=== PATIENT | female | born 1940 | race Caucasian/White ===

== ENCOUNTER 2020-10-25 13:04 | Outpatient (REF) | payer MEDICARE, OTHER, SELFPAY ==
[2020-10-25 14:41] LABS: Anion Gap 12 (12-20); Blood Urea Nitrogen 14 mg/dL (9-16); Calcium 9.6 mg/dL (8.4-10.2); Carbon Dioxide 28 mmol/L (22-29); Chloride 98 mmol/L (96-108); Estimated Glomerular Filt Rate 57; Glucose Random 98 mg/dL (60-115); Potassium 4.4 mmol/L (3.3-5.1); Sodium 134 mmol/L (135-145)
== END 2020-10-25 13:05 | disposition home or self-care (01) ==
LOC: HO.HMGCLDS 13:04
PROVIDERS: PCP Internal Medicine; Visit Provider Internal Medicine
DX: I10 Essential (primary) hypertension (principal)
CPT/HCPCS: 36415; 80048

== ENCOUNTER 2021-01-04 08:14 | Outpatient (REF) | payer MEDICARE, OTHER, SELFPAY ==
[2021-01-04 11:40] LABS: Hematocrit 39.8 % (37-47); Mean Corpuscular HGB Conc 32.7 g/dl (31.0-35.0); Mean Corpuscular Volume 91.9 fL (80-98); Mean Platelet Volume 9.4 fL (9.4-12.3); Platelet Count 237 X10*3/uL (160-400); Red Blood Count 4.33 X10*6/uL (4.20-5.50); Red Cell Distribution Width 13.6 % (11.0-16.0); White Blood Count 4.2 X10*3/uL (4.8-10.8)
[2021-01-04 12:16] LABS: TSH reflex Free T4 3.71 uIU/mL (0.32-4.0)
[2021-01-04 12:24] LABS: Alanine Aminotransferase 15 U/L (0-31); Alkaline Phosphatase 74 U/L (39-117); Anion Gap 11 (12-20); Aspartate Amino Transferase 17 U/L (5-31); Bilirubin Total 0.4 mg/dL (0.0-1.0); Blood Urea Nitrogen 14 mg/dL (9-16); Calcium 9.4 mg/dL (8.4-10.2); Carbon Dioxide 28 mmol/L (22-29); Chloride 103 mmol/L (96-108); Cholesterol 194 mg/dL; Estimated Glomerular Filt Rate 57; Glucose Fasting 86 mg/dL (60-99); HDL Cholesterol 74 mg/dL; LDL Cholesterol Calculated 103 mg/dl; Potassium 4.4 mmol/L (3.3-5.1); Sodium 138 mmol/L (135-145); Total Protein 6.2 g/dL (6.5-8.0); Triglycerides 89 mg/dL
== END 2021-01-04 08:15 | disposition home or self-care (01) ==
LOC: HO.HMGCLDS 08:14
PROVIDERS: PCP Internal Medicine; Visit Provider Internal Medicine
DX: E78.5 Hyperlipidemia, unspecified (principal); I10 Essential (primary) hypertension
CPT/HCPCS: 36415; 80053; 80061; 84443; 85027

== ENCOUNTER 2021-01-25 08:41 | Outpatient (REF) | payer MEDICARE, OTHER, SELFPAY ==
--- NOTE | ~2021-01-25 | US_ITS ---
EXAMINATION: US ABDOMEN LIMITED CLINICAL INFORMATION: Unspecified abdominal pain. COMPARISON: None TECHNIQUE: Real-time imaging of the right upper quadrant abdominal viscera. FINDINGS: PANCREAS: Visualized portions unremarkable. LIVER: Unremarkable. GALLBLADDER: Normal. The gallbladder is physiologically distended without evidence of stones, sludge, polyps, wall thickening or pericholecystic fluid. COMMON BILE DUCT: Normal in caliber measuring 0.6 cm in diameter. RIGHT KIDNEY: 8.1 cm. Unremarkable. LEFT KIDNEY: 8.6 cm. Unremarkable. SPLEEN: 8.6 cm. Unremarkable. URINARY BLADDER:. FREE FLUID: None. US/US abdomen limited IMPRESSION: Unremarkable abdominal ultrasound.
== END 2021-01-25 08:42 | disposition home or self-care (01) ==
LOC: HO.US 08:41
PROVIDERS: PCP Internal Medicine; Visit Provider Internal Medicine
DX: R10.9 Unspecified abdominal pain (principal); I10 Essential (primary) hypertension; E78.5 Hyperlipidemia, unspecified
CPT/HCPCS: 76705

== ENCOUNTER 2021-05-01 13:19 | Emergency (ER) | payer MEDICARE, OTHER, SELFPAY ==
--- NOTE | ~2021-05-01 | XR_ITS ---
EXAMINATION: XR CHEST CLINICAL INFORMATION: Cough. COMPARISON: Chest 10/06/2015 TECHNIQUE: 2 views of the chest were obtained. FINDINGS: No significant abnormality is noted involving the heart, lungs, mediastinum, bony thorax or soft tissues. XR/XR chest 2V IMPRESSION: Unremarkable chest exam
[2021-05-01 14:48] VITALS: BP 198/90; PULSE 89; RESP 19; TEMP 37.2; O2SAT 97; BMI 20.2
--- NOTE | 2021-05-01 18:00 | ED_ITS ---
HPI - URI/Sore Throat General Chief Complaint: Upper Respiratory Symptoms Stated Complaint: sob, cough Time Seen by Provider: 05/01/21 17:57 Source: patient Mode of arrival: ambulatory Limitations: no limitations History of Present Illness HPI Narrative: Patient with cough since October with wheezing been seen PCP and been to urgent care multiple times taking a course of Z-Galo and prednisone comes here for similar complaints dry cough no fever feel congested and wheezing special in the morning Related Data Previous Rx's Medication Instructions Recorded simvastatin 20 mg tablet 20 mg PO BEDTIME #90 tab 11/07/20 famotidine 20 mg tablet 20 mg PO DAILY #30 tab 02/19/21 lisinopril 20 mg tablet 20 mg PO BID #180 tab 03/06/21 dicyclomine 10 mg capsule 10 mg PO TID #90 cap 03/08/21 albuterol sulfate 90 mcg/actuation 2 puff INHALATION Q4-6H PRN #6.7 g 03/20/21 aerosol inhaler cetirizine 10 mg tablet 10 mg PO DAILY 30 Days #30 tab 03/27/21 albuterol sulfate 90 mcg/actuation 2 puff INHALATION Q4-6H PRN #8.5 g 05/01/21 aerosol inhaler (ProAir HFA) amoxicillin 875 mg-potassium 1 tab PO BID #20 tab 05/01/21 clavulanate 125 mg tablet (Augmentin) codeine 10 mg-guaifenesin 100 mg/5 10 ml PO Q4-6H PRN #237 ml 05/01/21 mL oral liquid prednisone 20 mg tablet 40 mg PO DAILY #10 tab 05/01/21 Allergies Allergy/AdvReac Type Severity Reaction Status Date / Time tramadol [TRAMADOL] Allergy Severe LETHARGY/VOMITING, Verified 04/25/21 13:13 nausea, vomiting levofloxacin [From LEVAQUIN] Allergy Intermediate TENDONITIS Verified 04/25/21 13:13 metronidazole [From FLAGYL] Allergy Intermediate NAUSEA, Verified 04/25/21 13:13 metalic taste, nausea Sulfa (Sulfonamide Allergy Intermediate N/V, nausea Verified 04/25/21 13:13 Antibiotics) [SULFA (SULFONAMIDE ANTIBIOTICS)] doxycycline Allergy Unknown Unknown Verified 04/25/21 13:13 nitrofurantoin Allergy back pain Verified 04/25/21 13:13 [From Macrobid] cigarette smoke Allergy Unknown vomitng Uncoded 03/08/21 09:44 Review of Systems Review of Systems: Yes all other systems are reviewed and are negative [facility] Past Medical History Medical History Abdominal pain Arthritis Asthma Chronic cough Eosinophilia HTN (hypertension) Hyperlipidemia Surgical History H/O colonoscopy History of hysterectomy History of rectocele Inguinal hernia S/P EMILE (total abdominal hysterectomy) Family History Family History Father No problems noted. Mother Diabetes mellitus HTN (hypertension) Social History Social History Housing: House Alcohol intake: never Patient Tobacco Use Status: Never used Tobacco e-Cigarette/Vaping Use: Never Used Second Hand Smoke Exposure: Yes Advance Directives: No Advance Directives Information Provided: Yes Current occupational status: retired Physical Exam Vital Signs: Vital Signs: Last Vital Signs Temp 99 F 05/01/21 14:48 Pulse 89 05/01/21 14:48 Resp 19 05/01/21 14:48 BP 198/90 H 05/01/21 14:48 Pulse Ox 97 05/01/21 14:48 Body Mass Index 20.2 Appearance: Alert. Oriented X3. No acute distress. Eyes: No pallor or icterus ENT: Pharynx normal. Oral Mucosa moist, nares normal Neck: Normal inspection. Neck supple. CVS: Normal heart rate and rhythm. Pulses normal. Respiratory: No respiratory distress. Equal air entry bilateral, bilateral wheezing and rhonchi and no crackles Abdomen: Soft and nontender. Bowel sounds are present, no mass palpable, no CVA tenderness Skin: Skin warm and dry. Normal skin color. Normal skin turgor. Extremities: No lower extremity edema. No calf tenderness Neuro: Oriented X 3. MDM - URI/Sore Throat MDM Narrative Medical decision making narrative: Patient with chronic bronchitis with history of past chest x-ray negative will discharge patient on albuterol inhaler prednisone and Augmentin Differential Diagnosis Differential diagnosis: Likely bronchitis Medical Records Attestation: I reviewed the patient's medical records. Discharge Plan Discharge Clinical Impression: Chronic cough, Bronchitis Patient Disposition: Home, Self-Care Instructions: Chronic Bronchitis (ED) Additional Instructions: Take antibiotics and prednisone as prescribed and follow up with PCP Prescriptions: New prednisone 20 mg tablet 40 mg PO DAILY Qty: 10 RF: 0 codeine-guaifenesin 10-100 mg/5 mL liquid 10 ml PO Q4-6H PRN (Reason: cough) Qty: 237 RF: 0 albuterol sulfate [ProAir HFA] 90 mcg/actuation HFA aerosol inhaler 2 puff inhalation Q4-6H PRN (Reason: shortness of breath or wheezing) Qty: 8.5 RF: 0 amoxicillin-pot clavulanate [Augmentin] 875-125 mg tablet 1 tab PO BID Qty: 20 RF: 0 No Action simvastatin 20 mg tablet 20 mg PO BEDTIME Qty: 90 RF: 3 lisinopril 20 mg tablet 20 mg PO BID Qty: 180 RF: 3 albuterol sulfate 90 mcg/actuation HFA aerosol inhaler 2 puff inhalation Q4-6H PRN (Reason: shortness of breath or wheezing) Qty: 6.7 RF: 6 famotidine 20 mg tablet 20 mg PO DAILY Qty: 30 RF: 0 dicyclomine 10 mg capsule 10 mg PO TID Qty: 90 RF: 2 cetirizine 10 mg tablet 10 mg PO DAILY 30 Days Qty: 30 RF: 0 Interventions: ED Discharge Assessment Last Done: 05/01/21 18:42 Discharge Date/Time: 05/01/21 18:43
[2021-05-01] MEDS: Albuterol Sulfate 90 MCG 8 GM INHALER 2 PUFF INHALE (18:23)
[2021-05-01] MEDS: predniSONE 20 MG TABLET 40 MG PO (18:38)
[2021-05-01] MEDS: Amoxicillin/Potassium Clav 875 MG TABLET PO (18:38)
== END 2021-05-01 18:43 | disposition home or self-care (01) ==
PROVIDERS: Emergency Provider Internal Medicine; PCP Internal Medicine
DX: J40 Bronchitis, not specified as acute or chronic (principal)
CPT/HCPCS: 71046; 94640; 99283; 99284

== ENCOUNTER → 2021-05-08 13:23 | Outpatient (BNVA) | payer MEDICARE, OTHER, SELFPAY | PROVIDERS: PCP Internal Medicine; Visit Provider Internal Medicine | DX: J30.9 Allergic rhinitis, unspecified (principal); J45.909 Unspecified asthma, uncomplicated; R05 Cough | CPT/HCPCS: 99202 ==

== ENCOUNTER 2021-05-22 09:43 | Outpatient (REF) | payer MEDICARE, OTHER, SELFPAY ==
--- NOTE | 2021-05-22 13:24 | PFT_ITS ---
FLOWS: FEV1 111% of predicted at 2.25 L. FVC 113% of predicted at 3.06 L. FEV1 to FVC ratio of 0.74. No bronchodilator response. LUNG VOLUMES: Total lung capacity 113% of predicted at 5.90 L. Residual volume 106% of predicted at 2.61 L. Slow vital capacity 119% of predicted at 3.29 L. Expiratory reserve volume 126% of predicted at 0.71 L. Diffusion capacity is moderately decreased. IMPRESSION: No obstructive or restrictive ventilatory defect. No bronchodilator response. Isolated defect in diffusion capacity suggests underlying pulmonary parenchymal of vascular disease. Clinical correlation is advised. MD SUSANNA Ramírez/MODL / [id number]
== END 2021-05-22 09:44 | disposition home or self-care (01) ==
LOC: HO.RESP 09:43
PROVIDERS: Visit Provider Internal Medicine
DX: J45.909 Unspecified asthma, uncomplicated (principal); R05 Cough
CPT/HCPCS: 94060; 94727; 94729

== ENCOUNTER 2021-05-23 12:36 | Outpatient (REF) | payer MEDICARE, OTHER, SELFPAY ==
[2021-05-23 14:39] LABS: C Reactive Protein 0.13 mg/dL (< or = 0.50)
[2021-05-31 14:11] LABS: Transglutaminase Ab IgG <1.0 U/mL; Transglutaminase IgA <1.0 U/mL
== END 2021-05-23 12:37 | disposition home or self-care (01) ==
LOC: HO.LAB 12:36
PROVIDERS: PCP Internal Medicine; Referring Provider Internal Medicine; Visit Provider Nurse Practitioner Family
DX: K21.9 Gastro-esophageal reflux disease without esophagitis (principal); R10.84 Generalized abdominal pain; K58.1 Irritable bowel syndrome with constipation
CPT/HCPCS: 36415; 83516; 86140; 99202

== ENCOUNTER → 2021-05-30 10:25 | Outpatient (BNVA) | payer MEDICARE, OTHER, SELFPAY | PROVIDERS: PCP Internal Medicine; Visit Provider Internal Medicine | DX: J30.9 Allergic rhinitis, unspecified (principal); R05.3 Chronic cough | CPT/HCPCS: 99212 ==

== ENCOUNTER → 2021-07-16 10:32 | Outpatient (BNVA) | payer MEDICARE, OTHER, SELFPAY | PROVIDERS: PCP Internal Medicine; Referring Provider Internal Medicine; Visit Provider Nurse Practitioner Family | DX: K21.9 Gastro-esophageal reflux disease without esophagitis (principal); K59.04 Chronic idiopathic constipation; K62.3 Rectal prolapse; R10.84 Generalized abdominal pain; R14.0 Abdominal distension (gaseous); I10 Essential (primary) hypertension; E78.5 Hyperlipidemia, unspecified; Z88.6 Allergy status to analgesic agent; Z88.1 Allergy status to other antibiotic agents; Z88.2 Allergy status to sulfonamides; Z88.8 Allergy status to other drugs, medicaments and biological substances | CPT/HCPCS: 99212 ==

== ENCOUNTER → 2021-08-30 10:40 | Outpatient (BNVA) | payer MEDICARE, OTHER, SELFPAY | PROVIDERS: PCP Internal Medicine; Referring Provider Nurse Practitioner Family; Visit Provider Surgery | DX: K62.3 Rectal prolapse (principal) | CPT/HCPCS: 46600; 99202 ==

== ENCOUNTER → 2021-11-26 09:41 | Outpatient (BNVA) | payer MEDICARE, OTHER, SELFPAY | PROVIDERS: PCP Internal Medicine; Visit Provider Internal Medicine | DX: R05.3 Chronic cough (principal); J30.9 Allergic rhinitis, unspecified; J45.909 Unspecified asthma, uncomplicated | CPT/HCPCS: 99212 ==

== ENCOUNTER 2021-12-26 07:41 | Outpatient (REF) | payer MEDICARE, OTHER, SELFPAY ==
[2021-12-26 11:29] LABS: Hematocrit 39.1 % (37.0-47.0); Hemoglobin 12.9 g/dl (12.0-16.0); Mean Corpuscular Hemoglobin 30.4 pg (27.0-33.0); Mean Corpuscular Volume 92.2 fL (80.0-98.0); Mean Platelet Volume 8.9 fL (9.4-12.3); Platelet Count 302 X10*3/uL (160-400); Red Blood Count 4.24 X10*6/uL (4.20-5.50); Red Cell Distribution Width 13.6 % (11.0-16.0)
[2021-12-26 12:01] LABS: Alanine Aminotransferase 16 U/L (0-31); Alkaline Phosphatase 77 U/L (39-117); Anion Gap 11 (12-20); Aspartate Amino Transferase 20 U/L (5-31); Bilirubin Total 0.6 mg/dL (0.0-1.0); Blood Urea Nitrogen 14 mg/dL (9-16); Calcium 9.7 mg/dL (8.4-10.2); Carbon Dioxide 26 mmol/L (22-29); Chloride 104 mmol/L (96-108); Cholesterol 204 mg/dL; Estimated Glomerular Filt Rate 56; Glucose Fasting 93 mg/dL (60-99); HDL Cholesterol 79 mg/dL; LDL Cholesterol Calculated 105 mg/dl; Potassium 4.2 mmol/L (3.3-5.1); Sodium 137 mmol/L (135-145); TSH reflex Free T4 3.52 uIU/mL (0.32-4.0); Total Protein 6.5 g/dL (6.5-8.0); Triglycerides 104 mg/dL
== END 2021-12-26 07:42 | disposition home or self-care (01) ==
LOC: HO.HMGCLDS 07:41
PROVIDERS: Visit Provider Internal Medicine
DX: E78.5 Hyperlipidemia, unspecified (principal); I10 Essential (primary) hypertension
CPT/HCPCS: 36415; 80053; 80061; 84443; 85027

== ENCOUNTER → 2021-12-26 08:27 | Outpatient (RCR) | payer MEDICARE, OTHER, SELFPAY | END | disposition home or self-care (01) | LOC: HO.PTCHIC 05-29 10:51 | PROVIDERS: PCP Internal Medicine; Visit Provider Internal Medicine | DX: M25.512 Pain in left shoulder (principal) | CPT/HCPCS: 97110; 97530 ==

== ENCOUNTER 2022-05-13 16:40 | Outpatient (REF) | payer MEDICARE, OTHER, SELFPAY | END 2022-05-13 16:41 | disposition home or self-care (01) | LOC: HO.LNP 16:40 | PROVIDERS: Visit Provider Physician Assistant | DX: Z13.89 Encounter for screening for other disorder (principal) ==

== ENCOUNTER 2022-06-17 13:09 | Outpatient (REF) | payer MEDICARE, OTHER, SELFPAY ==
[2022-06-17 14:09] LABS: Alanine Aminotransferase 10 U/L (0-31); Albumin Level 4.4 g/dL (3.5-5.0); Alkaline Phosphatase 93 U/L (39-117); Aspartate Amino Transferase 18 U/L (5-31); Bilirubin Direct 0.2 mg/dL (0.0-0.5); Bilirubin Total 0.4 mg/dL (0.0-1.0)
== END 2022-06-17 13:10 | disposition home or self-care (01) ==
LOC: HO.LAB 13:09
PROVIDERS: PCP Internal Medicine; Visit Provider Nurse Practitioner Family
DX: R10.84 Generalized abdominal pain (principal); K59.04 Chronic idiopathic constipation
CPT/HCPCS: 36415; 80076; 99212

== ENCOUNTER 2022-06-20 08:28 | Outpatient (REF) | payer MEDICARE, OTHER, SELFPAY ==
--- NOTE | ~2022-06-20 | US_ITS ---
EXAMINATION: US ABDOMEN COMPLETE CLINICAL INFORMATION: Abdominal pain. COMPARISON: 01/25/2021. TECHNIQUE: Real-time imaging of the abdominal viscera. FINDINGS: PANCREAS: Normal. No abnormal mass or peripancreatic inflammatory change. ABDOMINAL AORTA: Calcified plaque is present without abdominal aortic aneurysm. INFERIOR VENA CAVA: Visualized portions are normal. LIVER: Normal. The liver is normal in size. The liver contour is normal. Parenchymal echogenicity is normal. No focal hepatic lesion. There is no intrahepatic biliary duct dilatation seen. GALLBLADDER: Normal. The gallbladder is physiologically distended without evidence of stones, sludge, polyps, wall thickening or pericholecystic fluid. COMMON BILE DUCT: Normal in caliber measuring 0.5 cm in diameter. RIGHT KIDNEY: There is mild prominence of the proximal ureter without echogenic focus being seen. No hydronephrosis. No renal calculi or focal parenchymal lesions. The kidney measures 7.9 cm in maximum dimension. LEFT KIDNEY: There is some mild prominence of the proximal ureter without calculus identified. This had a similar appearance to prior study of 01/25/2021. No hydronephrosis. No renal calculi or focal parenchymal lesions. The kidney measures 9.0 cm in maximum dimension. SPLEEN: Normal. The spleen measures 8.7 cm in maximum dimension. FREE FLUID: None. US/US abdomen complete IMPRESSION: No significant abnormality appreciated. Mild prominence of the proximal ureters without hydronephrosis or calculi identified.
== END 2022-06-20 08:29 | disposition home or self-care (01) ==
LOC: HO.US 08:28
PROVIDERS: Visit Provider Nurse Practitioner Family
DX: R10.9 Unspecified abdominal pain (principal)
CPT/HCPCS: 76700

== ENCOUNTER 2022-06-26 12:14 | Outpatient (REF) | payer MEDICARE, OTHER, SELFPAY ==
[2022-06-26 15:00] LABS: Blood Urea Nitrogen 17 mg/dL (9-16); Estimated Glomerular Filt Rate > 60
== END 2022-06-26 12:15 | disposition home or self-care (01) ==
LOC: HO.HMGCLDS 12:14
PROVIDERS: PCP Internal Medicine; Visit Provider Nurse Practitioner Family
DX: R10.11 Right upper quadrant pain (principal)
CPT/HCPCS: 36415; 82565; 84520

== ENCOUNTER 2022-07-09 13:35 | Outpatient (REF) | payer MEDICARE, OTHER, SELFPAY ==
--- NOTE | ~2022-07-09 | CT_ITS ---
EXAMINATION: CT ABDOMEN AND PELVIS WITH CONTRAST CLINICAL INFORMATION: Unspecified abdominal pain. COMPARISON: Ultrasound abdomen 06/20/2022. TECHNIQUE: Multidetector volumetric images were obtained from the superior aspect of the liver through the pubic symphysis following administration 85 mL of Omnipaque 350 intravenous contrast. Sagittal and coronal reformatted images were obtained on the technologist's workstation. Oral Contrast: No. This CT examination was performed using dose optimization techniques as appropriate, variously including the following: *Automated exposure control. *Adjustment of mA and/or kV according to patient size (this includes techniques or standardized protocols for targeted exams where dose is matched to indication/reason for exam; i.e. extremities or head). *Use of iterative reconstruction technique. DLP: 456 mGy-cm FINDINGS: LUNG BASES: There is mild atelectatic changes in the lingula and left lung base. The right lung base is clear. Heart size is normal. LIVER, GALLBLADDER, AND BILIARY TREE: The liver is normal in size, shape, and attenuation. No focal hepatic lesion or biliary ductal dilatation is present. The gallbladder is unremarkable with no evidence of radiopaque gallstones, gallbladder wall thickening, or obvious pericholecystic inflammatory changes. PANCREAS: Unremarkable. SPLEEN: Unremarkable. ADRENAL GLANDS: Unremarkable. KIDNEYS AND URETERS: The kidneys are normal in size, shape, and attenuation. No hydronephrosis, hydroureter, or calculi seen. No perinephric stranding. There is a 3 mm hypodensity in the lower pole cortex of the right kidney. BLADDER: Unremarkable. GASTROINTESTINAL TRACT: There is moderate stool and oral contrast seen in the colon without any significant distention. Oral contrast opacified. Small bowel loops are normal caliber. Appendix is not visualized. ABDOMINAL WALL: There is a small lumbar canal hernia containing fat. LYMPH NODES: Normal. VASCULAR: There is arthroscopic calcification of abdominal aorta without aneurysmal dilatation. PELVIC VISCERA: There is mild thickening of the perirectal wall and mild perirectal fat stranding. No abscess seen. There is no free air or free fluid. OSSEOUS STRUCTURES: No aggressive lytic or sclerotic process seen. Vacuum disc phenomena with degenerative disc changes are seen at L2-3, L3-L4 and L4-L5 disc levels. 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 CT/CT abdomen pelvis w IV con IMPRESSION: 1. No acute intra-abdominal process seen. 2. Moderate constipation. Mild perirectal fat stranding and perirectal wall thickening but no abscess seen. Suspect low-lying rectum and urinary bladder. 3. Small umbilical hernia containing fat. Fleischner guidelines were followed.
[2022-07-09] MEDS: iohexoL 350 MG/ML 100 ML INFUS..BTL IV (16:49)
[2022-07-09] MEDS: Barium Sulfate Oral (Berry) 450 ML ORAL.SUSP 900 ML PO (16:50)
== END 2022-07-09 13:36 | disposition home or self-care (01) ==
LOC: HO.CT 13:35
PROVIDERS: PCP Internal Medicine; Visit Provider Nurse Practitioner Family
DX: R10.9 Unspecified abdominal pain (principal)
CPT/HCPCS: 74177; Q9967

== ENCOUNTER 2022-07-15 14:21 | Outpatient (REF) | payer MEDICARE, OTHER, SELFPAY | END 2022-07-15 14:22 | disposition home or self-care (01) | LOC: HO.LAB 14:21 | PROVIDERS: Nurse Practitioner Family; PCP Internal Medicine; Visit Provider Internal Medicine | DX: K20.90 Esophagitis, unspecified without bleeding (principal) | CPT/HCPCS: 36415; 86003; 99212 ==

== ENCOUNTER → 2022-10-07 10:30 | Outpatient (BNVA) | payer MEDICARE, OTHER, SELFPAY | PROVIDERS: PCP Internal Medicine; Visit Provider Nurse Practitioner Family | DX: R10.84 Generalized abdominal pain (principal); K21.9 Gastro-esophageal reflux disease without esophagitis; K59.04 Chronic idiopathic constipation | CPT/HCPCS: 99212 ==

== ENCOUNTER → 2022-12-31 12:10 | Outpatient (BNVA) | payer MEDICARE, OTHER, SELFPAY | PROVIDERS: PCP Internal Medicine; Visit Provider Dietitian, Registered | DX: K58.9 Irritable bowel syndrome, unspecified (principal); E78.5 Hyperlipidemia, unspecified; I10 Essential (primary) hypertension; E53.8 Deficiency of other specified B group vitamins; E55.9 Vitamin D deficiency, unspecified; Z71.3 Dietary counseling and surveillance | CPT/HCPCS: 97802 ==

== ENCOUNTER 2023-01-09 08:40 | Outpatient (REF) | payer MEDICARE, OTHER, SELFPAY ==
[2023-01-09 09:35] LABS: MANUAL DIFF FLAG NO
[2023-01-09 10:33] LABS: Basophils Absolute Auto 0.1 X10*3/uL (0.0-0.2); Basophils Percent Auto 1.1 % (0-2); Eosinophils Absolute Auto 0.5 X10*3/uL (0.0-0.4); Eosinophils Percent Auto 5.6 % (0-4); Hematocrit 37.8 % (37.0-47.0); Hemoglobin 12.6 g/dl (12.0-16.0); Imm Gran Abs Auto 0.04 X10*3/uL (0.00-0.03); Imm Gran Pct Auto 0.4 % (0.0-0.4); Lymphocytes Absolute Auto 2.1 X10*3/uL (1.2-4.9); Lymphocytes Percent Auto 21.9 % (20-40); Mean Corpuscular HGB Conc 33.3 g/dl (31.0-35.0); Mean Corpuscular Hemoglobin 30.3 pg (27.0-33.0); Mean Corpuscular Volume 90.9 fL (80.0-98.0); Mean Platelet Volume 9.4 fL (9.4-12.3); Monocytes Absolute Auto 0.9 X10*3/uL (0.1-1.2); Neutrophils Absolute Auto 5.7 x10*3/uL (2.0-8.3); Platelet Count 242 X10*3/uL (160-400); Red Blood Count 4.16 X10*6/uL (4.20-5.50); Red Cell Distribution Width 13.2 % (11.0-16.0); White Blood Count 9.4 X10*3/uL (4.8-10.8)
[2023-01-09 11:16] LABS: Alanine Aminotransferase 13 U/L (0-31); Alkaline Phosphatase 97 U/L (39-117); Anion Gap 11 (12-20); Aspartate Amino Transferase 18 U/L (5-31); Bilirubin Total 0.4 mg/dL (0.0-1.0); Blood Urea Nitrogen 14 mg/dL (9-16); Calcium 9.4 mg/dL (8.4-10.2); Carbon Dioxide 28 mmol/L (22-29); Chloride 105 mmol/L (96-108); Cholesterol 186 mg/dL; Estimated Glomerular Filt Rate 57; Glucose Fasting 94 mg/dL (60-99); HDL Cholesterol 56 mg/dL; LDL Cholesterol Calculated 102 mg/dl; Potassium 4.8 mmol/L (3.3-5.1); Sodium 139 mmol/L (135-145); Total Protein 6.3 g/dL (6.5-8.0); Triglycerides 143 mg/dL
[2023-01-09 11:40] LABS: Folate 15.6 ng/mL (> or = 4.0); TSH reflex Free T4 3.27 uIU/mL (0.32-4.0); Vitamin B12 505 pg/mL (200-900); Vitamin D 25-OH Total 51.6 ng/mL (>30)
== END 2023-01-09 08:41 | disposition home or self-care (01) ==
LOC: HO.LAB 08:40
PROVIDERS: PCP Internal Medicine; Visit Provider Internal Medicine
DX: E78.5 Hyperlipidemia, unspecified (principal); I10 Essential (primary) hypertension; E55.9 Vitamin D deficiency, unspecified; E53.8 Deficiency of other specified B group vitamins; J45.909 Unspecified asthma, uncomplicated; J20.9 Acute bronchitis, unspecified; Z79.899 Other long term (current) drug therapy
CPT/HCPCS: 36415; 80053; 80061; 82306; 82607; 82746; 84443; 85025; 99212

== ENCOUNTER 2023-04-09 10:38 | Outpatient (AMB) | payer MEDICARE, OTHER, SELFPAY ==
[2023-04-09 11:10] VITALS: BP 146/80; PULSE 71; O2SAT 96; BMI 22.5
--- NOTE | 2023-04-09 11:10 | A.OFFPC_ITS ---
Vital Signs 04/09/23 11:10 04/09/23 11:53 Height 5 ft 4 in Weight 131 lb BMI 22.5 BP 146/80 H 125/75 Blood Pressure Location Lt brachial Rt brachial Position Sitting Sitting Pulse 71 Pulse Source Pulse Oximeter Pulse Oximetry (%) 96 Oxygen Delivery Method Room Air Intake Visit Reasons: Annual PE Intake Note: Pt is here today for PE. Allergies tramadol [TRAMADOL] Allergy (Severe, Verified 04/09/23 11:10) LETHARGY/VOMITING, nausea, vomiting levofloxacin [From LEVAQUIN] Allergy (Intermediate, Verified 04/09/23 11:10) TENDONITIS metronidazole [From FLAGYL] Allergy (Intermediate, Verified 04/09/23 11:10) NAUSEA, metalic taste, nausea Sulfa (Sulfonamide Antibiotics) [SULFA (SULFONAMIDE ANTIBIOTICS)] Allergy (Intermediate, Verified 04/09/23 11:10) N/V, nausea doxycycline Allergy (Unknown, Verified 04/09/23 11:10) Unknown nitrofurantoin [From Macrobid] Allergy (Verified 04/09/23 11:10) back pain cigarette smoke Allergy (Unknown, Uncoded 04/09/23 11:10) vomitng Medication List - Last Reconciled 04/09/23 by Hiwot Almeida MD albuterol sulfate 90 mcg/actuation 2 puffs inhalation Q4-6H PRN cetirizine (Zyrtec) 10 mg PO DAILY PRN docusate sodium 200 mg (2 x 100 mg) PO BEDTIME fluticasone propionate 50 mcg/actuation (Flonase Allergy Relief) 1 spray intranasal BID ketorolac 0.5% 0 drps ophthalmic (eye) lisinopril 20 mg PO BID metoprolol succinate ER 50 mg PO DAILY multivitamin (Daily Multi-Vitamin tablet) 1 tab PO DAILY polyethylene glycol 3350 (Miralax) 17 grams PO DAILY simvastatin 20 mg PO BEDTIME vitamins A,C,R-ggvr-ekozmn (PreserVision AREDS) PO wheat dextrin (Benefiber Healthy Shape) grams PO Tobacco use date assessed: 04/09/23 Fall risk assessment: 1 Fall in past year Last assessed Fall Risk: 04/09/23 Dental Screening Dental Screen Date: 04/09/23 Did you have a dental visit in the last 12 months?: No Did you have a dental problem in the last 6 months where you did not have access to dental care?: No Was dental information given to patient?: Patient declined HPI Annual PE HPI Details Pt presents for PE. [facility] Medical History (Updated 04/09/23 @ 11:59 by Hiwot Almeida MD) Abdominal pain Annual physical exam Arthritis Asthma Chronic cough Eosinophilia HTN (hypertension) Hyperlipidemia Rectal prolapse Surgical History H/O colonoscopy History of hysterectomy History of rectocele Inguinal hernia S/P EMILE (total abdominal hysterectomy) Family History Father Mental health disorder Mother Diabetes mellitus HTN (hypertension) Social History Housing: House Alcohol intake: never Patient Tobacco Use Status: Never used Tobacco e-Cigarette/Vaping Use: Never Used Second Hand Smoke Exposure: Yes Current occupational status: retired Cognitive needs: No Hearing needs: No Vision needs: Yes Questionnaire PHQ-9 Over the last 2 weeks, how often have you been bothered by any of the following problems? 1. Little interest or pleasure in doing things: not at all 2. Feeling down, depressed, or hopeless: not at all 3. Trouble falling or staying asleep, or sleeping too much: not at all 4. Feeling tired or having little energy: not at all 5. Poor appetite or overeating: not at all 6. Feeling bad about yourself - or that you are a failure or have let yourself or your family down: not at all 7. Trouble concentrating on things, such as reading the newspaper or watching television: not at all 8. Moving or speaking so slowly that other people could have noticed. Or the opposite - being so fidgety or restless that you have been moving around a lot more than usual: not at all 9. Thoughts that you would be better off or of hurting yourself in some way: not at all Total score: 0 Depression Screening Interpretation: Negative Source: Developed by Drs. Tejinder Hutson, Geena Carvajal, Josse Londono and colleagues, with an educational ana from [email or web address]. Thrive Questionnaire Date Thrive assessed: 04/09/23 I am a: Patient What is your living situation today?: I have a steady place to live Within the past 12 months, did the food you bought not last and you didn't have the money to get more?: Never true Within the past 12 months, did you worry whether your food would run out before you got money to buy more?: Never true Do you have trouble paying for medicines?: No Do you have trouble getting transportation to medical appointments?: No Do you have trouble paying your heating and electricity bill?: No Do you have trouble taking care of your child, family member or friend?: No Do you have trouble with day-to-day activities such as bathing, preparing meals, shopping, managing finances, etc.?: No Are you currently unemployed and looking for a job?: No Are you interested in more education?: No Please select the resources that you would like help with: None Currently or been in a relationship where the following occur: no concerns reported AUDIT C Alcohol Use Questionnaire (AUDIT-C) 1. How often do you have a drink containing alcohol?: Never 3. How often do you have six or more drinks on one occasion?: Never Total Score: 0 JUANCHO-7 AMB Questionnaire JUANCHO-7 Date JUANCHO - 7 assessed: 04/09/23 Feeling nervous, anxious, or on edge: 0 = Not at all Not being able to stop or control worryin = Not at all Worrying too much about different things: 0 = Not at all Trouble relaxin = Not at all Being so restless that it is hard to sit still: 0 = Not at all Becoming easily annoyed or irritable: 0 = Not at all Feeling afraid as if something awful might happen: 0 = Not at all Total JUANCHO-7 score (0-4 normal; 5-9 mild; 10-14 moderate; 15-21 severe): 0 Source: Developed by Drs. Tejinder Hutson, Geena Carvajal, Josse Londono and colleagues, with an educational ana from [email or web address]. Review of Systems Const All systems reviewed & are unremarkable except as noted in HPI and below Reports no additional complaints Eyes Reports no additional complaints ENT Reports no additional complaints Card Reports no additional complaints Resp Reports no additional complaints GI Reports no additional complaints Reports no additional complaints Physical exam (Primary Care) Vital Signs: Last Vital Signs Pulse 71 04/09/23 11:10 BP 146/80 H 04/09/23 11:10 Pulse Ox 96 04/09/23 11:10 Oxygen Delivery Method Room Air 04/09/23 11:10 BMI result Body Mass Index 22.5 Tobacco/Smoking Status: Tobacco use Status Tobacco use date assessed 04/09/23 04/09/23 11:19 Patient Tobacco Use Status Never used Tobacco 04/09/23 11:19 e-Cigarette/Vaping Use Never Used 04/09/23 11:19 PHQ-9: PHQ-9 Score PHQ-9: Total score 0 04/09/23 11:23 Depression Screening Interpretation: Negative Thrive Assessment: Date of Thrive Assessment Date Thrive assessed 04/09/23 04/09/23 11:23 Currently or been in a relationship where the following occur: no concerns reported Const General: no acute distress HENMT Head: Yes normal to inspection Ears: hearing grossly normal bilaterally General nose exam: Normal external nose present Face and sinus: Yes normal facial exam Throat: Yes posterior oropharynx normal Eyes General: appearance normal, both eyes and all related structures Neck Neck: Yes no lymphadenopathy and Yes supple Resp Effort & Inspection: normal respiratory effort Auscultation: clear to auscultation bilaterally Cardio Rhythm: regular rhythm Heart sounds: S1 normal heart sound present and S2 normal heart sound present GI Inspection: Yes normal to inspection Palpation (GI): Soft to palpation Percussion: Yes normal to percussion Auscultation: normal bowel sounds Assessment and Plan Assessment & Plan (1) Annual physical exam: Code(s): Z00.00 - Encounter for general adult medical examination without abnormal findings Plan: Well-balanced diet and regular physical activity discussed with the patient (2) Hyperlipidemia: Code(s): E78.5 - Hyperlipidemia, unspecified Plan: Continue statin and low-cholesterol diet ,follow-up in 6 months with a fasting labs before (3) HTN (hypertension): Code(s): I10 - Essential (primary) hypertension Plan: Continue current medications, patient declined adding medication to better control blood pressure (4) Chronic cough: Comment: chronic allergic rhinitis, ProAir and Flonase spray as needed and follow-up with pulmonology Code(s): R05 - Cough Plan: Uses a ProAir as needed and follow-up with Pulmonary Orders: Orders Comprehensive [place]. Panel Fast 6 Months E78.5 - Hyperlipidemia, unspecified, I10 - Essential (primary) hypertension, Z00.00 - Encounter for general adult medical examination without abnormal findings Lipid Panel 6 Months E78.5 - Hyperlipidemia, unspecified, I10 - Essential (primary) hypertension, Z00.00 - Encounter for general adult medical examination without abnormal findings TSH reflex Free T4 6 Months E78.5 - Hyperlipidemia, unspecified, I10 - Essential (primary) hypertension, Z00.00 - Encounter for general adult medical examination without abnormal findings Complete Blood Count Auto Diff 6 Months E78.5 - Hyperlipidemia, unspecified, I10 - Essential (primary) hypertension, Z00.00 - Encounter for general adult medical examination without abnormal findings Coding Level of Care Code Est Pt Prev Care >65y(19937) Diagnoses Annual physical exam Z00.00 Hyperlipidemia E78.5 HTN (hypertension) I10 Chronic cough R05
[2023-04-09 11:53] VITALS: BP 125/75
== END 2023-04-09 11:59 | disposition home or self-care (01) ==
PROVIDERS: Visit Provider Internal Medicine
DX: Z00.00 Encounter for general adult medical examination without abnormal findings (principal); E78.5 Hyperlipidemia, unspecified; I10 Essential (primary) hypertension; R05.9 Cough, unspecified
CPT/HCPCS: 99397

== ENCOUNTER 2023-06-03 11:07 | Outpatient (AMB) | payer MEDICARE, OTHER, SELFPAY ==
[2023-06-03 13:37] VITALS: BP 152/80; PULSE 68; TEMP 36.8; O2SAT 98; BMI 22.5
--- NOTE | 2023-06-03 13:37 | MHC.OFFWIV ---
Intake Vital Signs 06/03/23 13:37 Height 5 ft 4 in Weight 131 lb BMI 22.5 BP 152/80 H Blood Pressure Location Lt brachial Position Sitting Pulse 68 Pulse Source Pulse Oximeter Temp 98.3 F Temp Source Temporal Artery Scan Pulse Oximetry (%) 98 Intake Visit Reasons: EST/stomach cramps Intake Note: pt is here for c/o stomach cramps severe, questioning uti Patient Tobacco Use Status: Never used Tobacco Allergies tramadol [TRAMADOL] Allergy (Severe, Verified 06/03/23 13:37) LETHARGY/VOMITING, nausea, vomiting levofloxacin [From LEVAQUIN] Allergy (Intermediate, Verified 06/03/23 13:37) TENDONITIS metronidazole [From FLAGYL] Allergy (Intermediate, Verified 06/03/23 13:37) NAUSEA, metalic taste, nausea Sulfa (Sulfonamide Antibiotics) [SULFA (SULFONAMIDE ANTIBIOTICS)] Allergy (Intermediate, Verified 06/03/23 13:37) N/V, nausea doxycycline Allergy (Unknown, Verified 06/03/23 13:37) Unknown nitrofurantoin [From Macrobid] Allergy (Verified 06/03/23 13:37) back pain cigarette smoke Allergy (Unknown, Uncoded 04/09/23 11:10) vomitng Do you need a note to return to daycare/school/sports/work: Yes HPI HPI Comments History of Present Illness Details 82-year-old female history of IBS that presents for stomach cramping. Patient states that for the past week she has experienced cramping in her right lower abdomen. She denies any fevers or chills and diarrhea she does have a history of constipation as well for which she takes MiraLax for her stools have been suboptimal lately. She has been taking Gas-X in does get some relief the pain is not constant. She has restarted her GI provider [facility] had difficulty getting in touch with them. [facility] Medical History (Updated 04/09/23 @ 11:59 by Hiwot Almeida MD) Rectal prolapse Annual physical exam Chronic cough Asthma Abdominal pain Arthritis Eosinophilia Hyperlipidemia HTN (hypertension) Surgical History S/P EMILE (total abdominal hysterectomy) H/O colonoscopy Inguinal hernia History of hysterectomy History of rectocele Family History Father Mental health disorder Mother Diabetes mellitus HTN (hypertension) Social History Housing: House Alcohol intake: never Patient Tobacco Use Status: Never used Tobacco e-Cigarette/Vaping Use: Never Used Second Hand Smoke Exposure: Yes Current occupational status: retired Cognitive needs: No Hearing needs: No Vision needs: Yes Review of Systems Const Unobtainable due to mental status GI Reports abdominal pain and Reports bloating Physical Exam Vital Signs: Last Vital Signs Temp 98.3 F 06/03/23 13:37 Pulse 68 06/03/23 13:37 BP 152/80 H 06/03/23 13:37 Pulse Ox 98 06/03/23 13:37 BMI result Body Mass Index 22.5 Const General: healthy appearing, comfortable, no acute distress and alert Orientation/consciousness: patient oriented x3 Limitations: no limitations HEENT Head: Yes normal to inspection Ears: hearing grossly normal bilaterally Resp Effort & Inspection: normal respiratory effort and able to speak in complete sentences Cardio Rate: regular rate GI Other: Question right lower quadrant tenderness to palpation Skin General skin exam: no rashes or lesions noted Neuro General: patient oriented x3 Extrem General: Yes normal to inspection Results AMB Urinalysis, Automated UA Leukoctes 0 Reese/uL Last Edit by CHELO Lee on 06/03/23 13:53 UA Nitrite Negative Last Edit by CHELO Lee on 06/03/23 13:53 UA Urobilinogen 0.2 mg/dL Last Edit by CHELO Lee on 06/03/23 13:53 UA Protein 0 mg/dL Last Edit by CHELO Lee on 06/03/23 13:53 UA pH 6.5 Last Edit by CHELO Lee on 06/03/23 13:53 UA Blood 0 Osiel/uL Last Edit by CHELO Lee on 06/03/23 13:53 UA Specific [place] 1.010 Last Edit by CHELO Lee on 06/03/23 13:53 UA Ketone Negative Last Edit by CHELO Lee on 06/03/23 13:53 UA Bilirubin 0 mg/dL Last Edit by CHELO Lee on 06/03/23 13:53 UA Glucose 0 mg/dL Last Edit by CHELO Lee on 06/03/23 13:53 Results Reviewed Results Reviewed: Laboratory Last Values Urine pH (Auto) 6.5 06/03/23 13:51 Specific [place] (Auto) 1.010 06/03/23 13:51 Urine Protein (Auto) 0 mg/dL 06/03/23 13:51 Glucose (UA)(Auto) 0 mg/dL 06/03/23 13:51 Urine Ketones (Auto) Negative 06/03/23 13:51 Urine Blood (Auto) 0 Osiel/uL 06/03/23 13:51 Urine Nitrite (Auto) Negative 06/03/23 13:51 Urine Bilirubin (Auto) 0 mg/dL 06/03/23 13:51 Urine Urobilinogen (Auto) 0.2 mg/dL 06/03/23 13:51 Leukocyte Esterase (Auto) 0 Reese/uL 06/03/23 13:51 Assessment & Plan Assessment & Plan (1) Abdominal pain: Code(s): R10.9 - Unspecified abdominal pain Qualifiers: Abdominal location: generalized Qualified Code(s): R10.84 - Generalized abdominal pain Plan: VSS. Exam patient is alert oriented no acute distress exam notable for question number right lower quadrant tenderness to palpation. Exam otherwise unremarkable note above. Given patient presentation of consideration is IBS flare verses diverticulitis versus other acute pathology. Low suspicion for diverticulitis given no fever no left quadrant tenderness to palpation no diarrhea or blood in the stool. The suspicion for appendicitis given patient has had appendectomy. Increased prescribed as fair. Discussed his findings with patient would recommend patient go to the emergency department for CT scan patient declined at this time. Lab patient trial increasing fiber as well as adding Senokot to bowel regiment and a probiotic imaging active GI provider Discharge instructions, follow up and treatment are discussed with patient in my usual fashion. Alternatives in treatment are also discussed. The patient will return for worsening symptoms or as needed. Advised that any labs/imaging ordered will be followed up on and contact made if further treatment needed. Counseled that patient's condition may require further evaluation and/or treatment. Symptoms of concern for worsening disorder discussed in detail in my customary manner. Patient does verbalize understanding of the plan, there are no apparent barriers to communication. The patient is given the opportunity to ask questions and have them answered to his/her satisfaction Orders: Orders AMB Urinalysis Automated Today Z13.9 - Encounter for screening, unspecified Coding Level of Care Code Est Pt Level 3 (51547) Diagnoses Generalized abdominal pain R10.84 Abdominal location: generalized
== END 2023-06-03 14:32 | disposition home or self-care (01) ==
PROVIDERS: PCP Internal Medicine; Visit Provider Physician Assistant
DX: R10.84 Generalized abdominal pain (principal)
CPT/HCPCS: 81003; 99213

== ENCOUNTER 2023-06-16 12:39 | Outpatient (REF) | payer MEDICARE, OTHER, SELFPAY ==
[2023-06-16 14:48] LABS: Alanine Aminotransferase 16 U/L (0-31); Albumin Level 4.2 g/dL (3.5-5.0); Alkaline Phosphatase 80 U/L (39-117); Aspartate Amino Transferase 18 U/L (5-31); Bilirubin Direct 0.1 mg/dL (0.0-0.5); Bilirubin Total 0.3 mg/dL (0.0-1.0); Lipase 33 U/L (8-78); Total Protein 6.7 g/dL (6.5-8.0)
[2023-06-27 03:38] LABS: Pancreatic Elastase-1 >500 mcg/g
== END 2023-06-16 12:40 | disposition home or self-care (01) ==
LOC: HO.LAB 12:39
PROVIDERS: PCP Internal Medicine; Visit Provider Nurse Practitioner Family
DX: R10.9 Unspecified abdominal pain (principal); K21.9 Gastro-esophageal reflux disease without esophagitis; K58.1 Irritable bowel syndrome with constipation; R10.84 Generalized abdominal pain; K59.01 Slow transit constipation; R14.0 Abdominal distension (gaseous)
CPT/HCPCS: 36415; 80076; 82656; 83690; 87338; 99212

== ENCOUNTER 2023-06-16 12:39 | Outpatient (AMB) | payer MEDICARE, OTHER, SELFPAY ==
[2023-06-16 12:54] VITALS: BP 150/87; PULSE 71; BMI 22.1
--- NOTE | 2023-06-16 12:54 | A.OFFVIS_ITS ---
Intake Vital Signs 06/16/23 12:54 Height 5 ft 4 in Weight 128 lb 11.999 oz BMI 22.1 BP 150/87 H Blood Pressure Location Rt brachial Position Sitting Pulse 71 Intake Visit Reasons: Follow up Abdominal pain Intake Note: Patient presents to in office vsiit today in follow up of abdominal pain. CC: Patient reports feeling worst than before. She c/o abdominal pain, indigestion,nausea, bloating, and constipation. She states bloating and pain seems worst after meals. She states Miralax was working before but is no longer working. 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 Accompanied by: Self / Same As Patient Allergies tramadol [TRAMADOL] Allergy (Severe, Verified 06/16/23 12:57) LETHARGY/VOMITING, nausea, vomiting levofloxacin [From LEVAQUIN] Allergy (Intermediate, Verified 06/16/23 12:57) TENDONITIS metronidazole [From FLAGYL] Allergy (Intermediate, Verified 06/16/23 12:57) NAUSEA, metalic taste, nausea Sulfa (Sulfonamide Antibiotics) [SULFA (SULFONAMIDE ANTIBIOTICS)] Allergy (Intermediate, Verified 06/16/23 12:57) N/V, nausea doxycycline Allergy (Unknown, Verified 06/16/23 12:57) Unknown nitrofurantoin [From Macrobid] Allergy (Verified 06/16/23 12:57) back pain cigarette smoke Allergy (Unknown, Uncoded 04/09/23 11:10) vomitng HPI Follow up Abdominal pain HPI Details LAST VISIT Abdominal pain Postprandial abdominal bloating and occasionally abdominal discomfort. Patient states that the pain is random sometimes in the left upper sometimes and left lower quadrant. Possibility this is related to the gas trapping or her even being slightly constipated. Patient states that this happened after she eats certain food. Again discussed with patient all FODMAP diet and trying to eliminate her bowels better. Long discussion with patient about different diet. Encouraged her to stick to low FODMAP list. Acid reflux Discussed with patient avoiding dietary triggers and late night snacking. Staying upright for minimal 3 hours after meals discussed with patient. Chronic idiopathic constipation Continue taking your labs in the morning. Patient can also take stool softener. Patient was also encouraged to increase fluid intake and activity to promote better bowel motility. Patient was encouraged to eat small portion and more often. I will see her in 4 months, sooner on as needed basis. Patient is agreeable to this plan and verbalizes understanding of instructions. She was given the opportunity to ask questions and all questions answered. TODAY'S VISIT Patient is here today for follow-up. Patient requested to be seen sooner due to increase in her symptoms. Patient reports that she finds MiraLax no longer helpful and she is constipated. Patient is not taking Colace. Patient was seen at urgent care few weeks ago for abdominal discomfort. Patient denies melena, hematochezia, unintentional weight loss or ribbon like stools. Patient reports postprandial abdominal bloating and cramping. Patient reports that her pain is on the right lower quadrant and sometimes is in the middle of her abdomen. Patient reports that she tried eating gluten free diet, however states that her does not like gluten free pasta or bread. Patient reports that she had chicken noodle soup from [employer] and had abdominal cramping right after. Patient reports occasional dyspepsia without dysphagia or odynophagia. [facility] Medical History Rectal prolapse Annual physical exam Chronic cough Asthma Abdominal pain Arthritis Eosinophilia Hyperlipidemia HTN (hypertension) Surgical History S/P EMILE (total abdominal hysterectomy) H/O colonoscopy Inguinal hernia History of hysterectomy History of rectocele Family History Father Mental health disorder Mother Diabetes mellitus HTN (hypertension) Social History Housing: House Alcohol intake: never Patient Tobacco Use Status: Never used Tobacco e-Cigarette/Vaping Use: Never Used Second Hand Smoke Exposure: Yes Current occupational status: retired Cognitive needs: No Hearing needs: No Vision needs: Yes Review of Systems Const Denies weight gain and Denies weight loss ENT Reports no additional complaints, Denies dysphagia and Denies odynophagia Card Reports no additional complaints Resp Reports no additional complaints GI Reports abdominal pain, Denies belching, Denies melena, Reports bloating, Denies change in bowel habits, Reports constipation, Denies dysphagia, Denies excessive flatus, Reports dyspepsia, Reports heartburn, Denies diarrhea, Denies loose stools, Denies nausea, Denies odynophagia and Denies vomiting Reports no additional complaints Musc Reports no additional complaints Neuro Reports no additional complaints Psych Reports no additional complaints Endo Reports no additional complaints Physical Exam Vital Signs: Last Vital Signs Pulse 71 06/16/23 12:54 BP 150/87 H 06/16/23 12:54 BMI result Body Mass Index 22.1 Const General: healthy appearing, no acute distress and well developed Nutritional Appearance: well nourished Orientation/consciousness: patient oriented x3 HEENT Head: Yes normal to inspection, Yes normocephalic and Yes atraumatic Face and sinus: Yes normal facial exam Mouth: Normal oral and palatal mucosa present Throat: Yes posterior oropharynx normal, Yes tonsils normal and Yes uvula midline Eyes General: appearance normal, both eyes and all related structures Neck Neck: Yes normal visual inspection, Yes full ROM and Yes trachea midline Thyroid: Thyroid normal Resp Effort & Inspection: normal respiratory effort, able to speak in complete sentences, no tracheal deviation and symmetric chest movement Auscultation: clear to auscultation bilaterally Cardio Rate: regular rate Heart sounds: S1 normal heart sound present and S2 normal heart sound present GI Inspection: Yes normal to inspection and No distended Palpation (GI): Soft to palpation, not firm, nontender and No hepatosplenomegaly present Auscultation: normal bowel sounds General: Yes no CVA tenderness Back/Spine/Pelvis Back: no CVA tenderness Skin General skin exam: elasticity normal, turgor normal and dry skin Neuro General: patient oriented x3 Psych Appearance: grossly normal Mental Status: mental status grossly normal Affect: normal affect Assessment & Plan Assessment & Plan (1) IBS (irritable bowel syndrome): Code(s): K58.9 - Irritable bowel syndrome without diarrhea Qualifiers: Irritable bowel syndrome type: with constipation Qualified Code(s): K58.1 - Irritable bowel syndrome with constipation (2) Abdominal pain: Code(s): R10.9 - Unspecified abdominal pain Qualifiers: Abdominal location: generalized Qualified Code(s): R10.84 - Generalized abdominal pain (3) Constipation: Code(s): K59.00 - Constipation, unspecified Qualifiers: Constipation type: slow transit constipation Qualified Code(s): K59.01 - Slow transit constipation (4) Postprandial abdominal bloating: Code(s): R14.0 - Abdominal distension (gaseous) Plan Patient will continue taking MiraLax every morning and she will start taking Colace in the evening. Patient was also encouraged to increase fluid intake and activity to promote better bowel motility. Will check her lipase, rule out pancreatic insufficiency, H pylori, and check liver panel. Most likely her symptoms are related to IBS C type. Patient will try to avoid dietary triggers. She can take probiotic if her symptoms will not get worse. Patient was encouraged to avoid lactose. Patient will start taking pantoprazole every morning half an hour before breakfast. I will see patient in 6 weeks, sooner on as needed basis. Patient would like to hold off on doing the colonoscopy or upper endoscopy at this time. Patient is agreeable to this plan and verbalizes understanding of instructions. She was given the opportunity to ask questions and all questions answered. Thank you for allowing me to participate in her care Orders: Orders Lipase Today R10.9 - Unspecified abdominal pain H pylori Ag Stool Today K21.9 - Gastro-esophageal reflux disease without esophagitis Pancreatic Elastase-1 Today R10.9 - Unspecified abdominal pain Liver Panel Today R10.9 - Unspecified abdominal pain Medications: New pantoprazole 20 mg PO DAILY 90 tabs 1RF Coding Level of Care Code Est Pt Level 4 (12852) Diagnoses Irritable bowel syndrome with constipation K58.1 Irritable bowel syndrome type: with constipation Generalized abdominal pain R10.84 Abdominal location: generalized Slow transit constipation K59.01 Constipation type: slow transit constipation Postprandial abdominal bloating R14.0 Time Spent (min) 35 Comment 20 minutes spent with patient and additional 15 minutes spent reviewing her records
== END 2023-06-16 13:39 | disposition home or self-care (01) ==
PROVIDERS: PCP Internal Medicine; Visit Provider Nurse Practitioner Family
DX: K58.1 Irritable bowel syndrome with constipation (principal); R10.84 Generalized abdominal pain; K59.01 Slow transit constipation; R14.0 Abdominal distension (gaseous)
CPT/HCPCS: 99214

== ENCOUNTER 2023-07-28 11:57 | Outpatient (AMB) | payer MEDICARE, OTHER, SELFPAY ==
[2023-07-28 12:01] VITALS: BP 173/80; PULSE 69; BMI 22.3
--- NOTE | 2023-07-28 12:01 | A.OFFVIS_ITS ---
Intake Vital Signs 07/28/23 12:01 Height 5 ft 4 in Weight 130 lb 1.164 oz BMI 22.3 BP 173/80 H Blood Pressure Location Lt brachial Position Sitting Pulse 69 Intake Visit Reasons: 6 week follow up Intake Note: Patient presents to in office visit today in follow up of labs. CC: Patient reports she took the Pantoprazole but her arm started throbbing. She stopped the medication and the throbbing on her arm resolved. She bought OTC Ome prazole and took it for 14 days. She states she is now having a lot of mucus but she is having a cold. 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 Accompanied by: Self / Same As Patient Allergies tramadol [TRAMADOL] Allergy (Severe, Verified 07/28/23 15:36) LETHARGY/VOMITING, nausea, vomiting levofloxacin [From LEVAQUIN] Allergy (Intermediate, Verified 07/28/23 15:36) TENDONITIS metronidazole [From FLAGYL] Allergy (Intermediate, Verified 07/28/23 15:36) NAUSEA, metalic taste, nausea Sulfa (Sulfonamide Antibiotics) [SULFA (SULFONAMIDE ANTIBIOTICS)] Allergy (Intermediate, Verified 07/28/23 15:36) N/V, nausea doxycycline Allergy (Unknown, Verified 07/28/23 15:36) Unknown nitrofurantoin [From Macrobid] Allergy (Verified 07/28/23 15:36) back pain pantoprazole Adverse Reaction (Severe, Verified 07/28/23 15:36) arm throbbing cigarette smoke Allergy (Unknown, Uncoded 07/28/23 15:36) vomitng HPI 6 week follow up HPI Details LAST VISIT: IBS (irritable bowel syndrome) Abdominal pain Constipation Postprandial abdominal bloating Plan Patient will continue taking MiraLax every morning and she will start taking Colace in the evening. Patient was also encouraged to increase fluid intake and activity to promote better bowel motility. Will check her lipase, rule out pancreatic insufficiency, H pylori, and check liver panel. Most likely her symptoms are related to IBS C type. Patient will try to avoid dietary triggers. She can take probiotic if her symptoms will not get worse. Patient was encouraged to avoid lactose. Patient will start taking pantoprazole every morning half an hour before breakfast. I will see patient in 6 weeks, sooner on as needed basis. Patient would like to hold off on doing the colonoscopy or upper endoscopy at this time. Patient is agreeable to this plan and verbalizes understanding of instructions. She was given the opportunity to ask questions and all questions answered. ? Thank you for allowing me to participate in her care Orders Orders Lipase Today R10.9 H pylori Ag Stool Today K21.9 Pancreatic Elastase-1 Today R10.9 Liver Panel Today R10.9 Medications New pantoprazole 20 mg PO DAILY 90 tabs 1RF TODAY'S VISIT: Patient is here today for follow-up. Patient reports that when she started taking pantoprazole she felt pain in her right arm and she stopped taking a curette patient back [id number] omeprazole and took it for 14 days. Currently patient has colds symptoms that she has been experiencing in the last month or so. Patient reports that she always gets sick this time of the year. Has appointment with her manager relationship this afternoon. Patient reports occasional dyspepsia, epigastric pain abdominal bloating with certain food. Patient reports that now that she has been sick with cold she has been eating less and reports to have less epigastric pain or dyspepsia. Patient also reports that she has been eating lot of ice cream and also reports epigastric pain afterwards. We did discuss low FODMAP diet last visit and list of recommendations was provided and ice cream was not recommended except for lactose free. Patient denies any other GI concerning symptoms. Reports that she has been moving her bowels daily. Denies melena, hematochezia, unintentional weight loss or ribbon like stools. [facility] Medical History (Updated 07/28/23 @ 15:46 by Jo Ann Looney MD) Bronchitis Rectal prolapse Annual physical exam Chronic cough Asthma Abdominal pain Arthritis Eosinophilia Hyperlipidemia HTN (hypertension) Surgical History S/P EMILE (total abdominal hysterectomy) H/O colonoscopy Inguinal hernia History of hysterectomy History of rectocele Family History Father Mental health disorder Mother Diabetes mellitus HTN (hypertension) Social History Housing: House Alcohol intake: never Patient Tobacco Use Status: Never used Tobacco e-Cigarette/Vaping Use: Never Used Second Hand Smoke Exposure: Yes Current occupational status: retired Cognitive needs: No Hearing needs: No Vision needs: Yes Review of Systems Const Denies weight gain and Denies weight loss ENT Reports no additional complaints, Denies dysphagia and Denies odynophagia Card Reports no additional complaints Resp Reports no additional complaints GI Denies abdominal pain, Denies belching, Denies melena, Reports bloating, Denies change in bowel habits, Reports GI cramping, Denies dysphagia, Denies excessive flatus, Reports dyspepsia (Occasional), Denies heartburn, Denies diarrhea, Denies loose stools, Denies nausea, Denies odynophagia and Denies vomiting Reports no additional complaints Musc Reports no additional complaints Neuro Reports no additional complaints Psych Reports no additional complaints Endo Reports no additional complaints Physical Exam Vital Signs: Last Vital Signs Pulse 69 07/28/23 12:01 BP 173/80 H 07/28/23 12:01 BMI result Body Mass Index 22.3 Const General: healthy appearing, no acute distress and well developed Nutritional Appearance: well nourished Orientation/consciousness: patient oriented x3 HEENT Head: Yes normal to inspection, Yes normocephalic and Yes atraumatic Face and sinus: Yes normal facial exam Mouth: Normal oral and palatal mucosa present Throat: Yes posterior oropharynx normal, Yes tonsils normal and Yes uvula midli ne Eyes General: appearance normal, both eyes and all related structures Neck Neck: Yes normal visual inspection, Yes full ROM and Yes trachea midline Thyroid: Thyroid normal Resp Effort & Inspection: normal respiratory effort, able to speak in complete sentences, no tracheal deviation and symmetric chest movement Auscultation: clear to auscultation bilaterally Cardio Rate: regular rate GI Inspection: Yes normal to inspection and No distended Palpation (GI): Soft to palpation, not firm, nontender and No hepatosplenomegaly present Auscultation: normal bowel sounds General: Yes no CVA tenderness Back/Spine/Pelvis Back: no CVA tenderness Skin General skin exam: elasticity normal, turgor normal and dry skin Neuro General: patient oriented x3 Psych Appearance: grossly normal Mental Status: mental status grossly normal Assessment & Plan Assessment & Plan (1) IBS (irritable bowel syndrome): Code(s): K58.9 - Irritable bowel syndrome without diarrhea Qualifiers: Irritable bowel syndrome type: with constipation Qualified Code(s): K58.1 - Irritable bowel syndrome with constipation (2) Abdominal pain: Code(s): R10.9 - Unspecified abdominal pain Qualifiers: Abdominal location: generalized Qualified Code(s): R10.84 - Generalized abdominal pain (3) Acid reflux: Code(s): K21.9 - Gastro-esophageal reflux disease without esophagitis Qualifiers: Esophagitis presence: esophagitis presence not specified Qualified Code(s): K21.9 - Gastro-esophageal reflux disease without esophagitis Plan Patient will continue low FODMAP diet. Lactose free ice cream recommended. Patient will also eat smaller meals and more often. May use [id number] famotidine as needed. Patient was also encouraged to avoid other dietary triggers and late night snacking. Staying upright for minimum 3 hours after meals discussed with patient. Patient will return to the office in 3 months, sooner on as needed basis. Patient is agreeable to this plan and verbalizes understanding of instructions. She was given the opportunity to ask questions and all questions answered. Thank you for allowing me to participate in her care Coding Level of Care Code Est Pt Level 3 (23827) Diagnoses Irritable bowel syndrome with constipation K58.1 Irritable bowel syndrome type: with constipation Generalized abdominal pain R10.84 Abdominal location: generalized Gastroesophageal reflux disease, unspecified whether esophagitis present K21.9 Esophagitis presence: esophagitis presence not specified Time Spent (min) 25 Comment 15 minutes spent with patient and additional 10 minutes spent reviewing her records
== END 2023-07-28 13:05 | disposition home or self-care (01) ==
PROVIDERS: PCP Internal Medicine; Visit Provider Nurse Practitioner Family
DX: K58.1 Irritable bowel syndrome with constipation (principal); R10.84 Generalized abdominal pain; K21.9 Gastro-esophageal reflux disease without esophagitis
CPT/HCPCS: 99213

== ENCOUNTER → 2023-07-28 11:57 | Outpatient (BNVA) | payer MEDICARE, OTHER, SELFPAY | PROVIDERS: PCP Internal Medicine; Visit Provider Nurse Practitioner Family | DX: J45.909 Unspecified asthma, uncomplicated (principal); J40 Bronchitis, not specified as acute or chronic; R05.3 Chronic cough; K58.1 Irritable bowel syndrome with constipation; K21.9 Gastro-esophageal reflux disease without esophagitis; R10.84 Generalized abdominal pain | CPT/HCPCS: 99212 ==

== ENCOUNTER 2023-07-28 14:37 | Outpatient (AMB) | payer MEDICARE, OTHER, SELFPAY ==
[2023-07-28 14:55] VITALS: BP 126/78; PULSE 92; O2SAT 96; BMI 22.5
--- NOTE | 2023-07-28 14:55 | A.OFFVIS_ITS ---
Intake Vital Signs 07/28/23 14:55 Height 5 ft 4 in Weight 131 lb BMI 22.5 BP 126/78 Blood Pressure Location Lt brachial Position Sitting Pulse 92 Pulse Source Pulse Oximeter Pulse Oximetry (%) 96 Oxygen Delivery Method Room Air Intake Visit Reasons: persistent cough Intake Note: pt is here for same day sick visit, has a cough, dripping nose, sore throat for about a month Glass Setter Required: No Allergies tramadol [TRAMADOL] Allergy (Severe, Verified 07/28/23 15:36) LETHARGY/VOMITING, nausea, vomiting levofloxacin [From LEVAQUIN] Allergy (Intermediate, Verified 07/28/23 15:36) TENDONITIS metronidazole [From FLAGYL] Allergy (Intermediate, Verified 07/28/23 15:36) NAUSEA, metalic taste, nausea Sulfa (Sulfonamide Antibiotics) [SULFA (SULFONAMIDE ANTIBIOTICS)] Allergy (Intermediate, Verified 07/28/23 15:36) N/V, nausea doxycycline Allergy (Unknown, Verified 07/28/23 15:36) Unknown nitrofurantoin [From Macrobid] Allergy (Verified 07/28/23 15:36) back pain pantoprazole Adverse Reaction (Severe, Verified 07/28/23 15:36) arm throbbing cigarette smoke Allergy (Unknown, Uncoded 07/28/23 15:36) vomitng Medication List - Last Reconciled 07/28/23 by Jo Ann Looney MD albuterol sulfate 90 mcg/actuation 2 puffs inhalation Q4-6H PRN cetirizine (Zyrtec) 10 mg PO DAILY PRN docusate sodium 200 mg (2 x 100 mg) PO BEDTIME fluticasone propionate 50 mcg/actuation (Flonase Allergy Relief) 1 spray intranasal BID PRN ketorolac 0.5% 0 drps ophthalmic (eye) lisinopril 20 mg PO BID metoprolol succinate ER 50 mg PO DAILY multivitamin (Daily Multi-Vitamin tablet) 1 tab PO DAILY polyethylene glycol 3350 (Miralax) 17 grams PO DAILY PRN simvastatin 20 mg PO BEDTIME vitamins A,C,Q-vbuy-ewxjot (PreserVision AREDS) PO BID Do you need a note to return to daycare/school/sports/work: No HPI persistent cough HPI Details THIS 82 YEARS OLD FEMALE IS KNOWN TO HAVE CHRONIC ALLERGIC RHINITIS WITH POSTNASAL DRIP. MOST OF THE TIME IT IS WELL CONTROLLED WITH USE OF FLONASE AND ZYRTEC. ABOUT ONCE OR TWICE A YEAR SHE GETS ACUTE INFECTION, RESULTING IN SORE THROAT WITH ONGOING COUGH, TIGHT FEELING IN HER CHEST, AND SOME WHEEZING. THIS TIME IT HAS GONE ON FOR 4 WEEKS, AT A LOW-GRADE LEVEL. HOWEVER LAST WEEK WHEN SHE WAS SHOPPING IN THE MALL AFTER THAT SHE CAME HOME WITH INCREASED SYMPTOMS, SHE FEELS WARM BUT HAS NOT CHECKED HER TEMPERATURE. COUGH IS MOSTLY DRY BUT IT MAKES HER SHORT OF BREATH. [facility] Medical History (Updated 07/28/23 @ 15:46 by Jo Ann Looney MD) Bronchitis Rectal prolapse Annual physical exam Chronic cough Asthma Abdominal pain Arthritis Eosinophilia Hyperlipidemia HTN (hypertension) Surgical History S/P EMILE (total abdominal hysterectomy) H/O colonoscopy Inguinal hernia History of hysterectomy History of rectocele Family History Father Mental health disorder Mother Diabetes mellitus HTN (hypertension) Social History Housing: House Alcohol intake: never Patient Tobacco Use Status: Never used Tobacco e-Cigarette/Vaping Use: Never Used Second Hand Smoke Exposure: Yes Current occupational status: retired Cognitive needs: No Hearing needs: No Vision needs: Yes Review of Systems Const All systems reviewed & are unremarkable except as noted in HPI and below Eyes Reports no additional complaints ENT Reports nasal congestion (Mild off and on) and Reports nasal discharge Card Denies chest pain, Denies irregular heart rhythm and Denies leg edema Resp Reports as per HPI GI Reports GI cramping, Reports dyspepsia and Reports other (GI symptoms mostly related to foods, currently better on low gluten diet) Reports no additional complaints Musc Reports no additional complaints Skin/Breast Reports system reviewed and no additional complaints, except as documented Neuro Reports no additional complaints Psych Reports no additional complaints Physical Exam Vital Signs: Last Vital Signs Pulse 92 07/28/23 14:55 BP 126/78 07/28/23 14:55 Pulse Ox 96 07/28/23 14:55 Oxygen Delivery Method Room Air 07/28/23 14:55 BMI result Body Mass Index 22.5 Const General: healthy appearing, comfortable, no acute distress, alert and awake Orientation/consciousness: patient oriented x3 HEENT Head: Yes normal to inspection General nose exam: No nasal polyps present, abnormal septum (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, there is superficial excoriation over the septum.), No nasal discharge present and Other nasal findings present (SHE DOES HAVE MILD CHRONIC NASAL CONGESTION) Face and sinus: Yes sinuses nontender Mouth: oropharynx abnormals (THERE IS ERYTHEMA AND MILD HYPERTROPHY OF THE PHARYNGEAL MUCOSA) Throat: Yes posterior oropharynx normal Eyes General: appearance normal, both eyes and all related structures Neck Neck: Yes normal visual inspection, Yes no lymphadenopathy, Yes trachea midline and Yes no JVD Thyroid: Thyroid normal Chest Chest palpation & inspection: normal inspection of the chest, normal palpation of entire chest wall and no tenderness Resp Other: Percussion note is resonant, breath sounds equal on both sides. She does have a few inspiratory wheezes over the lower lobes area. Cardio Palpation: normal PMI Rate: regular rate Rhythm: regular rhythm Heart sounds: no gallops and no murmurs GI Palpation (GI): Soft to palpation, nontender, No hepatosplenomegaly present and no masses Auscultation: normal bowel sounds Back/Spine/Pelvis Thoracic/Lumbar Spine: thoracic and lumbar spine normal to inspection Skin General skin exam: no rashes or lesions noted Neuro General: patient oriented x3 and no focal motor deficits Cranial nerves: Yes CN's II-XII intact bilaterally Extrem General: Yes normal to inspection, Yes no clubbing, cyanosis or edema and Yes no calf tenderness Psych Appearance: grossly normal and well kempt Speech and movement: Normal speech and movement present Assessment & Plan Assessment & Plan (1) Asthma: Comment: SHE HAS MILD INTERMITTENT BRONCHIAL ASTHMA. AT PRESENT SHE HAS AN ACUTE EXACERBATION DUE TO NONSPECIFIC RESPIRATORY INFECTION. ADVISED TO USE PROAIR 1 OR 2 PUFFS ONLY P.R.N. IF SHE HAS WHEEZING. Code(s): J45.909 - Unspecified asthma, uncomplicated Plan: FOR ACUTE EXACERBATION SHE IS PRESCRIBED, PREDNISONE 20 MG A DAY FOR 1 WEEK. Z-ERNESTINE # 1 COURSE ADVISED TO USE PROAIR 2 PUFFS Q 4-6 HOURS P.R.N.. REPORT IN 1-2 WEEKS IF NOT FULLY IMPROVED. (2) Allergic rhinitis: Comment: SHE HAS CHRONIC ALLERGIC RHINITIS., WITH SEASONAL FLARE UPS. Code(s): J30.9 - Allergic rhinitis, unspecified Plan: FLONASE 2 SPRAY EACH NOSTRIL DAILY ZYRTEC 10 MG HALF FOR 1 TABLET ONCE A DAY P.R.N. (3) Chronic cough: Comment: chronic allergic rhinitis, ProAir and Flonase spray as needed Code(s): R05 - Cough Plan: ABOVE (4) Bronchitis: Comment: AT PRESENT SHE HAS MILD, NONSPECIFIC TRACHEOBRONCHITIS. Code(s): J40 - Bronchitis, not specified as acute or chronic Plan: TX UNDER ASTHMA Medications: New prednisone 10 mg PO BID 10 tabs 0RF ASTHMA 5 days MDD ASTHMA azithromycin For 250 mg dose pack: take 500 mg today (day 1), then 250 mg for 4 days (days 2-5) PO 6 tabs 0RF Refilled albuterol sulfate 90 mcg/actuation 2 puffs inhalation Q4-6H PRN 8.5 ea 2RF for wheezing J20.9 - Acute bronchitis, unspecified, J45.909 - Unspecified asthma, uncomplicated Coding Level of Care Code Est Pt Level 3 (12026) Diagnoses Asthma J45.909 Allergic rhinitis J30.9 Chronic cough R05 Bronchitis J40
== END 2023-07-28 15:54 | disposition home or self-care (01) ==
PROVIDERS: PCP Internal Medicine; Visit Provider Internal Medicine
DX: J45.909 Unspecified asthma, uncomplicated (principal); J30.9 Allergic rhinitis, unspecified; R05.9 Cough, unspecified
CPT/HCPCS: 99213

== ENCOUNTER 2023-10-06 15:23 | Outpatient (AMB) | payer MEDICARE, OTHER, SELFPAY ==
[2023-10-06 15:26] VITALS: BP 140/82; PULSE 83; O2SAT 96; BMI 22.7
--- NOTE | 2023-10-06 15:26 | MHC.OFFVIS ---
Intake Vital Signs 10/06/23 15:26 Height 5 ft 4 in Weight 132 lb 4.438 oz BMI 22.7 BP 140/82 H Blood Pressure Location Lt brachial Position Sitting Pulse 83 Pulse Source Pulse Oximeter Pulse Oximetry (%) 96 Oxygen Delivery Method Room Air Intake Visit Reasons: persistent productive cough Intake Note: pt is here for sick visit, she has a lot of phelgm, thick not much production. Also, back pain seems to be little worse. started with sore throat, also she feels bloated. Allergies tramadol [TRAMADOL] Allergy (Severe, Verified 10/06/23 16:32) LETHARGY/VOMITING, nausea, vomiting levofloxacin [From LEVAQUIN] Allergy (Intermediate, Verified 10/06/23 16:32) TENDONITIS metronidazole [From FLAGYL] Allergy (Intermediate, Verified 10/06/23 16:32) NAUSEA, metalic taste, nausea Sulfa (Sulfonamide Antibiotics) [SULFA (SULFONAMIDE ANTIBIOTICS)] Allergy (Intermediate, Verified 10/06/23 16:32) N/V, nausea doxycycline Allergy (Unknown, Verified 10/06/23 16:32) Unknown nitrofurantoin [From Macrobid] Allergy (Verified 10/06/23 16:32) back pain pantoprazole Adverse Reaction (Severe, Verified 10/06/23 16:32) arm throbbing cigarette smoke Allergy (Unknown, Uncoded 10/06/23 16:32) vomitng Medication List - Last Reconciled 10/06/23 by Jo Ann Looney MD albuterol sulfate 90 mcg/actuation 2 puffs inhalation Q4-6H PRN cetirizine (Zyrtec) 10 mg PO DAILY PRN docusate sodium 200 mg (2 x 100 mg) PO BEDTIME fluticasone propionate 50 mcg/actuation (Flonase Allergy Relief) 1 spray intranasal BID PRN lisinopril 20 mg PO BID metoprolol succinate ER 50 mg PO DAILY multivitamin (Daily Multi-Vitamin tablet) 1 tab PO DAILY polyethylene glycol 3350 (Miralax) 17 grams PO DAILY PRN simvastatin 20 mg PO BEDTIME vitamins A,C,F-jimx-rfpyrt (PreserVision AREDS) PO BID Do you need a note to return to daycare/school/sports/work: No HPI persistent productive cough HPI Details THIS 83 YEARS OLD FEMALE IS CHRONIC CASE OF ALLERGIC RHINITIS WITH RECURRENT BOUTS OF SINUSITIS. SHE USES ZYRTEC ALMOST ON A DAILY BASIS AND ALSO USES FLONASE DAILY. FOR THE LAST 1 WEEK TO 10 DAYS SHE STARTED HAVING SORE THROAT AND THEN FOLLOWED BY INCREASED NASAL CONGESTION AND POSTNASAL DISCHARGE. SHE DENIES ANY FEVER OR CHILLS. SHE ALSO FEELS SOMEWHAT CONGESTED IN THE CHEST BUT NOT ABLE TO BRING. ANY MUCUS UP BECAUSE OF THE COUGH IS ALSO HAVING INCREASED LOW BACK PAIN. [facility] Medical History (Updated 10/06/23 @ 16:38 by Jo Ann Looney MD) Acute rhinosinusitis Bronchitis Rectal prolapse Annual physical exam Chronic cough Asthma Abdominal pain Arthritis Eosinophilia Hyperlipidemia HTN (hypertension) Surgical History S/P EMILE (total abdominal hysterectomy) H/O colonoscopy Inguinal hernia History of hysterectomy History of rectocele Family History Father Mental health disorder Mother Diabetes mellitus HTN (hypertension) Social History Housing: House Alcohol intake: never Patient Tobacco Use Status: Never used Tobacco e-Cigarette/Vaping Use: Never Used Second Hand Smoke Exposure: Yes Current occupational status: retired Cognitive needs: No Hearing needs: No Vision needs: Yes Review of Systems Const All systems reviewed & are unremarkable except as noted in HPI and below Eyes Reports no additional complaints ENT Reports nasal congestion (Mild off and on) and Reports nasal discharge Card Denies chest pain, Denies irregular heart rhythm and Denies leg edema Resp Reports as per HPI GI Reports GI cramping, Reports dyspepsia and Reports other (GI symptoms mostly related to foods, currently better on low gluten diet) Reports no additional complaints Musc Reports no additional complaints Skin/Breast Reports system reviewed and no additional complaints, except as documented Neuro Reports no additional complaints Psych Reports no additional complaints Physical Exam Vital Signs: Last Vital Signs Pulse 83 10/06/23 15:26 BP 140/82 H 10/06/23 15:26 Pulse Ox 96 10/06/23 15:26 Oxygen Delivery Method Room Air 10/06/23 15:26 BMI result Body Mass Index 22.7 Const General: healthy appearing, comfortable, no acute distress, alert and awake Orientation/consciousness: patient oriented x3 HEENT Head: Yes normal to inspection General nose exam: No nasal polyps present, abnormal septum (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, there is superficial excoriation over the septum.), No nasal discharge present and Other nasal findings present (SHE DOES HAVE MILD CHRONIC NASAL CONGESTION) Face and sinus: Yes sinuses nontender (BUT FEELS HEAVY OVER THE MAXILLARY SINUSES) Mouth: oropharynx abnormals (THERE IS ERYTHEMA AND MILD HYPERTROPHY OF THE PHARYNGEAL MUCOSA) Throat: Yes posterior oropharynx normal Eyes General: appearance normal, both eyes and all related structures Neck Neck: Yes normal visual inspection, Yes no lymphadenopathy, Yes trachea midline and Yes no JVD Thyroid: Thyroid normal Chest Chest palpation & inspection: normal inspection of the chest, normal palpation of entire chest wall and no tenderness Resp Other: Percussion note is resonant, breath sounds equal on both sides. She does have a few inspiratory wheezes over the lower lobes area. Cardio Palpation: normal PMI Rate: regular rate Rhythm: regular rhythm Heart sounds: no gallops and no murmurs GI Palpation (GI): Soft to palpation, nontender, No hepatosplenomegaly present and no masses Auscultation: normal bowel sounds Back/Spine/Pelvis Thoracic/Lumbar Spine: thoracic and lumbar spine normal to inspection Skin General skin exam: no rashes or lesions noted Neuro General: patient oriented x3 and no focal motor deficits Cranial nerves: Yes CN's II-XII intact bilaterally Extrem General: Yes normal to inspection, Yes no clubbing, cyanosis or edema and Yes no calf tenderness Psych Appearance: grossly normal and well kempt Speech and movement: Normal speech and movement present Assessment & Plan Assessment & Plan (1) Allergic rhinitis: Comment: SHE HAS CHRONIC ALLERGIC RHINITIS., WITH SEASONAL FLARE UPS. Code(s): J30.9 - Allergic rhinitis, unspecified Plan: CONTINUE TO USE ZYRTEC 10 MG HALF OR 1 TABLET DAILY. FLONASE-50 2 SPRAY EACH NOSTRIL DAILY (2) Asthma: Comment: SHE HAS MILD INTERMITTENT BRONCHIAL ASTHMA. AT PRESENT SEEMS TO BE UNDER GOOD CONTROL. Code(s): J45.909 - Unspecified asthma, uncomplicated Plan: CONTINUE TO USE ALBUTEROL HFA Q 6 HOURS P.R.N. (3) Acute rhinosinusitis: Comment: SHE HAS FREQUENT ACUTE ALLERGIC RHINOSINUSITIS, BUT SOMETIME IT GETS WORSE PROBABLY DUE TO ACUTE SINUSITIS. Code(s): J01.90 - Acute sinusitis, unspecified Plan: A COURSE OF Z-ERNESTINE IS PRESCRIBED. ALSO ADVISED TO USE STEAM INHALATIONS 2 TO 3 TIMES A DAY. Medications: New azithromycin For 250 mg dose pack: take 500 mg today (day 1), then 250 mg for 4 days (days 2-5) PO 6 tabs 0RF Coding Level of Care Code Est Pt Level 3 (36932) Diagnoses Allergic rhinitis J30.9 Asthma J45.909 Acute rhinosinusitis J01.90
== END 2023-10-06 15:59 | disposition home or self-care (01) ==
PROVIDERS: PCP Internal Medicine; Visit Provider Internal Medicine
DX: J30.9 Allergic rhinitis, unspecified (principal); J45.909 Unspecified asthma, uncomplicated; J01.90 Acute sinusitis, unspecified
CPT/HCPCS: 99213

== ENCOUNTER → 2023-10-06 15:23 | Outpatient (BNVA) | payer MEDICARE, OTHER, SELFPAY | PROVIDERS: PCP Internal Medicine; Visit Provider Internal Medicine | DX: J01.90 Acute sinusitis, unspecified (principal); J45.909 Unspecified asthma, uncomplicated | CPT/HCPCS: 99212 ==

== ENCOUNTER 2023-10-29 11:40 | Outpatient (AMB) | payer MEDICARE, OTHER, SELFPAY ==
--- NOTE | 2023-10-29 11:43 | A.OFFVIS_ITS ---
Intake Vital Signs 10/29/23 11:50 Height 5 ft 4 in Weight 128 lb BMI 22.0 BP 130/66 Blood Pressure Location Lt brachial Position Sitting Pulse 74 Intake Visit Reasons: 3 months follow up Intake Note: Patient is seen in office for 3 month follow up visit, following IBS. Patient c/o: per pt since last visit is doing much better, denies stomach pain, thinks she might had colitis at last visit and is currently resolved by taking antibiotics given by marketing professional. Still taking the powder Rx at last visit Allergies tramadol [TRAMADOL] Allergy (Severe, Verified 10/29/23 11:48) LETHARGY/VOMITING, nausea, vomiting levofloxacin [From LEVAQUIN] Allergy (Intermediate, Verified 10/29/23 11:48) TENDONITIS metronidazole [From FLAGYL] Allergy (Intermediate, Verified 10/29/23 11:48) NAUSEA, metalic taste, nausea Sulfa (Sulfonamide Antibiotics) [SULFA (SULFONAMIDE ANTIBIOTICS)] Allergy (Intermediate, Verified 10/29/23 11:48) N/V, nausea doxycycline Allergy (Unknown, Verified 10/29/23 11:48) Unknown nitrofurantoin [From Macrobid] Allergy (Verified 10/29/23 11:48) back pain pantoprazole Adverse Reaction (Severe, Verified 10/29/23 11:48) arm throbbing cigarette smoke Allergy (Unknown, Uncoded 10/29/23 11:48) vomitng HPI 3 months follow up HPI Details LAST VISIT: IBS (irritable bowel syndrome) Abdominal pain Acid reflux Plan Patient will continue low FODMAP diet. Lactose free ice cream recommended. Patient will also eat smaller meals and more often. May use [id number] famotidine as needed. Patient was also encouraged to avoid other dietary triggers and late night snacking. Staying upright for minimum 3 hours after meals discussed with patient. Patient will return to the office in 3 months, sooner on as needed basis. Patient is agreeable to this plan and verbalizes understanding of instructions. She was given the opportunity to ask questions and all questions answered. * TODAY'S VISIT Patient is here today for follow-up. Patient reports that she has been doing much better now. No abdominal pain or discomfort. Patient is using MiraLax, however she is not liking it anymore. Patient states strange taste. Patient tried even different bottle to see if she will see a difference and she states that she did not like the taste. Patient does report occasional abdominal cramping. Patient admits to be eating large amounts as well as eating popcorn late at night. Patient states that she tries to keep herself awake in the evening so she has popcorn. Patient had sinusitis last month and was treated with Zithromax. Patient believes that her pain was related to possible colitis and Zithromax help with the infection. Patient does admit that she does not empty her bowels completely. Patient denies melena, hematochezia, unintentional weight loss or ribbon like stools. Patient denies any dyspepsia, dysphagia or odynophagia ? [facility] Medical History (Updated 10/06/23 @ 16:38 by Jo Ann Looney MD) Acute rhinosinusitis Bronchitis Rectal prolapse Annual physical exam Chronic cough Asthma Abdominal pain Arthritis Eosinophilia Hyperlipidemia HTN (hypertension) Surgical History S/P EMILE (total abdominal hysterectomy) H/O colonoscopy Inguinal hernia History of hysterectomy History of rectocele Family History Father Mental health disorder Mother Diabetes mellitus HTN (hypertension) Social History Housing: House Alcohol intake: never Patient Tobacco Use Status: Never used Tobacco e-Cigarette/Vaping Use: Never Used Second Hand Smoke Exposure: Yes Current occupational status: retired Cognitive needs: No Hearing needs: No Vision needs: Yes Review of Systems Const Denies weight gain and Denies weight loss ENT Reports no additional complaints, Denies dysphagia and Denies odynophagia Card Reports no additional complaints Resp Reports no additional complaints GI Denies abdominal pain, Denies belching, Denies melena, Denies bloating, Denies change in bowel habits, Denies dysphagia, Denies excessive flatus, Denies dyspepsia, Denies heartburn, Denies diarrhea, Denies loose stools, Denies nausea, Denies odynophagia and Denies vomiting Musc Reports no additional complaints Neuro Reports no additional complaints Psych Reports no additional complaints Endo Reports no additional complaints Physical Exam Vital Signs: Last Vital Signs Pulse 74 10/29/23 11:50 BP 130/66 10/29/23 11:50 BMI result Body Mass Index 22.0 Const General: healthy appearing, no acute distress and well developed Nutritional Appearance: well nourished Orientation/consciousness: patient oriented x3 Resp Effort & Inspection: normal respiratory effort, able to speak in complete sentences, no tracheal deviation and symmetric chest movement Auscultation: clear to auscultation bilaterally Cardio Rate: regular rate GI Inspection: Yes normal to inspection and No distended Palpation (GI): Soft to palpation, not firm, nontender and No hepatosplenomegaly present Auscultation: normal bowel sounds General: Yes no CVA tenderness Back/Spine/Pelvis Back: no CVA tenderness Skin General skin exam: elasticity normal, turgor normal and dry skin Neuro General: patient oriented x3 Psych Appearance: grossly normal Mental Status: mental status grossly normal Assessment & Plan Assessment & Plan (1) IBS (irritable bowel syndrome): Code(s): K58.9 - Irritable bowel syndrome without diarrhea Qualifiers: Irritable bowel syndrome type: with constipation Qualified Code(s): K58.1 - Irritable bowel syndrome with constipation (2) Abdominal pain: Code(s): R10.9 - Unspecified abdominal pain Qualifiers: Abdominal location: generalized Qualified Code(s): R10.84 - Generalized abdominal pain (3) Acid reflux: Code(s): K21.9 - Gastro-esophageal reflux disease without esophagitis Qualifiers: Esophagitis presence: esophagitis presence not specified Qualified Code(s): K21.9 - Gastro-esophageal reflux disease without esophagitis Plan Continue avoiding dietary triggers. Continue eating smaller meals and more often. Continue low FODMAP diet. Patient can start taking Colace and stop MiraLax. Patient will call the office in couple weeks if she continues to have symptoms. Negative exam today. I will see patient in 6 months, sooner on as needed basis. Patient is agreeable to this plan and verbalizes understanding of instructions. She was given the opportunity to ask questions and all questions answered. Thank you for allowing me to participate in her care Medications: New docusate sodium 100 mg PO BEDTIME 90 caps 3RF K59.00 - Constipation, unspecified Coding Level of Care Code Est Pt Level 3 (80981) Diagnoses Irritable bowel syndrome with constipation K58.1 Irritable bowel syndrome type: with constipation Generalized abdominal pain R10.84 Abdominal location: generalized Gastroesophageal reflux disease, unspecified whether esophagitis present K21.9 Esophagitis presence: esophagitis presence not specified Time Spent (min) 30 Comment 20 minutes spent with patient and additional 10 minutes spent reviewing her records
[2023-10-29 11:50] VITALS: BP 130/66; PULSE 74; BMI 22.0
== END 2023-10-29 12:09 | disposition home or self-care (01) ==
PROVIDERS: PCP Internal Medicine; Visit Provider Nurse Practitioner Family
DX: K58.1 Irritable bowel syndrome with constipation (principal); R10.84 Generalized abdominal pain; K21.9 Gastro-esophageal reflux disease without esophagitis
CPT/HCPCS: 99213

== ENCOUNTER → 2023-10-29 11:40 | Outpatient (BNVA) | payer MEDICARE, OTHER, SELFPAY | PROVIDERS: PCP Internal Medicine; Visit Provider Nurse Practitioner Family | DX: K58.1 Irritable bowel syndrome with constipation (principal); K21.9 Gastro-esophageal reflux disease without esophagitis; R10.84 Generalized abdominal pain | CPT/HCPCS: 99212 ==

== ENCOUNTER 2023-12-19 14:04 | Outpatient (AMB) | payer MEDICARE, OTHER, SELFPAY ==
[2023-12-19 14:10] VITALS: BP 163/72; PULSE 79; BMI 22.8
--- NOTE | 2023-12-19 14:10 | MHC.OFFVIS ---
Vital Signs 12/19/23 14:10 Height 5 ft 4 in Weight 132 lb 11.492 oz BMI 22.8 BP 163/72 H Blood Pressure Location Rt brachial Position Sitting Pulse 79 Intake Visit Reasons: Rectal bleeding Intake Note: Nelia presents in office today in follow up of rectal bleeding. CC: Patient states she is having rectal bleeding every day and having to wear a pad. She states she previously had rectal bleeding but only occasionally and now is every day. She states that last week she had some cortisone injections for lower back pain and she is not sure if this is related. She reports having a hemorrhoid. Manufacturing Support Engineer Required: No Accompanied by: Self / Same As Patient Allergies tramadol [TRAMADOL] Allergy (Severe, Verified 12/19/23 14:15) LETHARGY/VOMITING, nausea, vomiting levofloxacin [From LEVAQUIN] Allergy (Intermediate, Verified 12/19/23 14:15) TENDONITIS metronidazole [From FLAGYL] Allergy (Intermediate, Verified 12/19/23 14:15) NAUSEA, metalic taste, nausea Sulfa (Sulfonamide Antibiotics) [SULFA (SULFONAMIDE ANTIBIOTICS)] Allergy (Intermediate, Verified 12/19/23 14:15) N/V, nausea doxycycline Allergy (Unknown, Verified 12/19/23 14:15) Unknown nitrofurantoin [From Macrobid] Allergy (Verified 12/19/23 14:15) back pain pantoprazole Adverse Reaction (Severe, Verified 12/19/23 14:15) arm throbbing cigarette smoke Allergy (Unknown, Uncoded 10/29/23 11:48) vomitng HPI HPI Rectal bleeding: Details: LAST VISIT IBS (irritable bowel syndrome) Abdominal pain Acid reflux Plan Continue avoiding dietary triggers. Continue eating smaller meals and more often. Continue low FODMAP diet. Patient can start taking Colace and stop MiraLax. Patient will call the office in couple weeks if she continues to have symptoms. Negative exam today. I will see patient in 6 months, sooner on as needed basis. Patient is agreeable to this plan and verbalizes understanding of instructions. She was given the opportunity to ask questions and all questions answered. ? Thank you for allowing me to participate in her care Medications New docusate sodium 100 mg PO BEDTIME 90 caps 3RF K59.00 TODAY'S VISIT Patient is here today for requested visit. Patient called yesterday and requested visit with provider due to constipation and rectal bleed. Patient reports that she has been having trouble moving her bowels and every time she has a bowel movement she has blood on the tissue when wiping. Occasional small amount of blood in the toilet after bowel movement. Patient is not taking stool softeners that were order for her last visit. Patient reports that she has been having good appetite. Reports to be eating well. Denies any nausea or vomiting. Patient had cortisone shot last week in her back and her symptoms are worse. Patient denies any urinary all fecal incontinence. Denies any tingling in her bilateral lower extremities. COUNTS INCLUDE 234 BEDS AT THE [facility] Medical History Acute rhinosinusitis Bronchitis Rectal prolapse Annual physical exam Chronic cough Asthma Abdominal pain Arthritis Eosinophilia Hyperlipidemia HTN (hypertension) Surgical History S/P EMILE (total abdominal hysterectomy) H/O colonoscopy Inguinal hernia History of hysterectomy History of rectocele Family History Father Mental health disorder Mother Diabetes mellitus HTN (hypertension) Social History Housing: House Alcohol intake: never Patient Tobacco Use Status: Never used Tobacco e-Cigarette/Vaping Use: Never Used Second Hand Smoke Exposure: Yes Current occupational status: retired Cognitive needs: No Hearing needs: No Vision needs: Yes Review of Systems Const Denies weight gain and Denies weight loss ENT Reports no additional complaints, Denies dysphagia and Denies odynophagia Card Reports no additional complaints Resp Reports no additional complaints GI Denies abdominal pain, Denies belching, Denies melena, Denies bloating, Reports hematochezia (When wiping after bowel movement), Reports constipation, Denies dysphagia, Denies excessive flatus, Denies dyspepsia, Denies heartburn, Denies diarrhea, Denies loose stools, Denies nausea, Denies odynophagia and Denies vomiting Reports no additional complaints Musc Reports no additional complaints Neuro Reports no additional complaints Psych Reports no additional complaints Endo Reports no additional complaints Physical Exam Vital Signs: Last Vital Signs Pulse 79 12/19/23 14:10 BP 163/72 H 12/19/23 14:10 BMI result Body Mass Index 22.8 Const General: healthy appearing, no acute distress and well developed Nutritional Appearance: well nourished Orientation/consciousness: patient oriented x3 Resp Effort & Inspection: normal respiratory effort, able to speak in complete sentences, no tracheal deviation and symmetric chest movement Auscultation: clear to auscultation bilaterally Cardio Rate: regular rate GI Inspection: Yes normal to inspection and No distended Palpation (GI): Soft to palpation, not firm, nontender and No hepatosplenomegaly present Auscultation: normal bowel sounds Rectal Exam - Female: visual inspection normal, normal sphincter tone and External hemorrhoid(s) present General: Yes no CVA tenderness Back/Spine/Pelvis Back: no CVA tenderness Skin General skin exam: elasticity normal, turgor normal and dry skin Neuro General: patient oriented x3 Psych Appearance: grossly normal Mental Status: mental status grossly normal Affect: Anxious affect present Assessment & Plan Assessment & Plan (1) IBS (irritable bowel syndrome): Code(s): K58.9 - Irritable bowel syndrome without diarrhea Category: Medical Qualifiers: Irritable bowel syndrome type: with constipation Qualified Code(s): K58.1 - Irritable bowel syndrome with constipation (2) Abdominal pain: Code(s): R10.9 - Unspecified abdominal pain Category: Medical Qualifiers: Abdominal location: generalized Qualified Code(s): R10.84 - Generalized abdominal pain (3) Acid reflux: Code(s): K21.9 - Gastro-esophageal reflux disease without esophagitis Category: Medical Qualifiers: Esophagitis presence: esophagitis presence not specified Qualified Code(s): K21.9 - Gastro-esophageal reflux disease without esophagitis (4) External hemorrhoid: Code(s): K64.4 - Residual hemorrhoidal skin tags Plan Patient reports constipation, occasional blood on the stool when she was. Patient is afraid that she might have hemorrhoid that will require surgery. Rectal exam done. No blood visible on the glove. Brown stool noted. No hemorrhoids, no fissures, mild external hemorrhoid/skin tag. Patient was encouraged to take MiraLax daily and stool softener in the evening if unable to have a bowel movement. Will send patient to check CBC. Script for Proctosol send. Patient was encouraged to do Sitz baths with Epsom salts. She will return in the office in 3 weeks, sooner on as needed basis. She is agreeable to this plan and verbalizes understanding of instructions. She was given the opportunity to ask questions and all questions answered. Thank you for allowing me to participate in her care Orders: Orders Vitamin B12 and Folate Today R19.7 - Diarrhea, unspecified Complete Blood Count no Diff Today K21.9 - Gastro-esophageal reflux disease without esophagitis Vitamin D 25-OH (D2 and D3) Today E55.9 - Vitamin D deficiency, unspecified Medications: New polyethylene glycol 3350 (Miralax) 17 grams PO DAILY 510 grams 3RF hydrocortisone 2.5% (Proctosol HC) 1 appl [place] BID-QID PRN 30 grams 0RF hemorrhoids Refilled docusate sodium 100 mg PO BEDTIME 90 caps 3RF K59.00 - Constipation, unspecified Coding Level of Care Code Est Pt Level 4 (16880) Diagnoses Irritable bowel syndrome with constipation K58.1 Irritable bowel syndrome type: with constipation Generalized abdominal pain R10.84 Abdominal location: generalized Gastroesophageal reflux disease, unspecified whether esophagitis present K21.9 Esophagitis presence: esophagitis presence not specified External hemorrhoid K64.4 Time Spent (min) 35 Comment 25 minutes spent with patient and additional 10 minutes spent reviewing her records
== END 2023-12-19 14:47 | disposition home or self-care (01) ==
PROVIDERS: PCP Internal Medicine; Visit Provider Nurse Practitioner Family
DX: K58.1 Irritable bowel syndrome with constipation (principal); R10.84 Generalized abdominal pain; K21.9 Gastro-esophageal reflux disease without esophagitis; K64.4 Residual hemorrhoidal skin tags
CPT/HCPCS: 99214

== ENCOUNTER 2023-12-19 14:04 | Outpatient (REF) | payer MEDICARE, OTHER, SELFPAY ==
[2023-12-19 15:15] LABS: MANUAL DIFF FLAG NO
[2023-12-19 17:55] LABS: Basophils Absolute Auto 0.1 X10*3/uL (0.0-0.2); Basophils Percent Auto 1.3 % (0-2); Eosinophils Absolute Auto 0.4 X10*3/uL (0.0-0.4); Eosinophils Percent Auto 7.3 % (0-4); Hematocrit 39.3 % (37.0-47.0); Imm Gran Abs Auto 0.03 X10*3/uL (0.00-0.03); Imm Gran Pct Auto 0.5 % (0.0-0.4); Lymphocytes Absolute Auto 1.7 X10*3/uL (1.2-4.9); Mean Corpuscular HGB Conc 33.1 g/dl (31.0-35.0); Mean Corpuscular Hemoglobin 29.9 pg (27.0-33.0); Mean Corpuscular Volume 90.3 fL (80.0-98.0); Mean Platelet Volume 9.2 fL (9.4-12.3); Monocytes Absolute Auto 0.5 X10*3/uL (0.1-1.2); Neutrophils Absolute Auto 3.2 x10*3/uL (2.0-8.3); Neutrophils Percent Auto 53.9 % (45-73); Platelet Count 255 X10*3/uL (160-400); Red Blood Count 4.35 X10*6/uL (4.20-5.50); Red Cell Distribution Width 13.5 % (11.0-16.0)
[2023-12-19 19:04] LABS: Alanine Aminotransferase 12 U/L (0-31); Albumin Level 3.9 g/dL (3.5-5.0); Alkaline Phosphatase 84 U/L (39-117); Anion Gap 10 (12-20); Aspartate Amino Transferase 18 U/L (5-31); Bilirubin Total 0.3 mg/dL (0.0-1.0); Blood Urea Nitrogen 22 mg/dL (9-16); Calcium 9.5 mg/dL (8.4-10.2); Carbon Dioxide 29 mmol/L (22-29); Chloride 105 mmol/L (96-108); Cholesterol 194 mg/dL (<200); Estimated Glomerular Filt Rate 52; Glucose Fasting 98 mg/dL (60-99); HDL Cholesterol 60 mg/dL (>40); LDL Cholesterol Calculated 110 mg/dL (<100); Sodium 140 mmol/L (135-145); Total Protein 6.4 g/dL (6.5-8.0); Triglycerides 124 mg/dL (<150)
[2023-12-19 19:21] LABS: TSH reflex Free T4 2.15 uIU/mL (0.32-4.0)
[2023-12-19 19:36] LABS: Folate 15.9 ng/mL (> or = 4.0)
[2023-12-19 22:24] LABS: Vitamin B12 823 pg/mL (200-900)
[2023-12-24 13:34] LABS: Vitamin D 25-OH, D2 <4 ng/mL; Vitamin D 25-OH, D3 48 ng/mL; Vitamin D 25-OH, Total 48 ng/mL (30-100)
== END 2023-12-19 14:05 | disposition home or self-care (01) ==
LOC: HO.LAB 14:04
PROVIDERS: PCP Internal Medicine; Visit Provider Nurse Practitioner Family
DX: Z00.00 Encounter for general adult medical examination without abnormal findings (principal); E55.9 Vitamin D deficiency, unspecified; I10 Essential (primary) hypertension; E78.5 Hyperlipidemia, unspecified; K25.1 Acute gastric ulcer with perforation; R10.84 Generalized abdominal pain; K21.9 Gastro-esophageal reflux disease without esophagitis; K64.4 Residual hemorrhoidal skin tags
CPT/HCPCS: 36415; 80053; 80061; 82306; 82607; 82746; 84443; 85025; 85027; 99212

== ENCOUNTER 2024-01-08 10:08 | Outpatient (AMB) | payer MEDICARE, OTHER, SELFPAY ==
[2024-01-08 10:24] VITALS: BP 142/84; PULSE 76; O2SAT 96; BMI 22.7
--- NOTE | 2024-01-08 10:24 | MHC.OFFVIS ---
Vital Signs 01/08/24 10:24 Height 5 ft 4 in Weight 132 lb BMI 22.7 BP 142/84 H Blood Pressure Location Lt brachial Position Sitting Pulse 76 Pulse Source Pulse Oximeter Pulse Oximetry (%) 96 Oxygen Delivery Method Room Air Intake Visit Reasons: persistent cough Intake Note: pt is here for follow up and states she is having an allegy issue with a lot phelgm, still coughing, 2 nights ago, coughing was bad, and she was hearing weird noises. Copy Room Technician Required: No Allergies tramadol [TRAMADOL] Allergy (Severe, Verified 01/08/24 10:40) LETHARGY/VOMITING, nausea, vomiting levofloxacin [From LEVAQUIN] Allergy (Intermediate, Verified 01/08/24 10:40) TENDONITIS metronidazole [From FLAGYL] Allergy (Intermediate, Verified 01/08/24 10:40) NAUSEA, metalic taste, nausea Sulfa (Sulfonamide Antibiotics) [SULFA (SULFONAMIDE ANTIBIOTICS)] Allergy (Intermediate, Verified 01/08/24 10:40) N/V, nausea doxycycline Allergy (Unknown, Verified 01/08/24 10:40) Unknown nitrofurantoin [From Macrobid] Allergy (Verified 01/08/24 10:40) back pain pantoprazole Adverse Reaction (Severe, Verified 01/08/24 10:40) arm throbbing cigarette smoke Allergy (Unknown, Uncoded 01/08/24 10:40) vomitng Medication List - Last Reconciled 01/08/24 by Jo Ann Looney MD albuterol sulfate 90 mcg/actuation 2 puffs inhalation Q4-6H PRN cetirizine (Zyrtec) 10 mg PO DAILY PRN docusate sodium 100 mg PO BEDTIME fluticasone propionate 50 mcg/actuation (Flonase Allergy Relief) 1 spray intranasal BID PRN hydrocortisone 2.5% (Proctosol HC) 1 appl [place] BID-QID PRN lisinopril 20 mg PO BID metoprolol succinate ER 50 mg PO DAILY montelukast 10 mg PO DAILY 30 days pediatric multivitamin (Gummi Bear Multivitamin chewable tablet) 1 tab PO DAILY polyethylene glycol 3350 (Miralax) 17 grams PO DAILY simvastatin 20 mg PO BEDTIME vitamins A,C,K-urgv-oyemqa (PreserVision AREDS) PO BID Do you need a note to return to daycare/school/sports/work: No HPI HPI persistent cough: Details: THIS 83 YEARS OLD VERY PLEASANT FEMALE IS HERE FOR FOLLOW-UP MAINLY FOR ONGOING NASAL CONGESTION POSTNASAL DRIP AND COUGH. SHE HAS NASAL CONGESTION AROUND THE YEAR WHICH GETS WORSE IN CERTAIN SEASONS. SHE CONTINUES TO HAVE INTERMITTENT COUGH WHICH IS MOSTLY RELATED TO HER NASAL ALLERGIES. SHE USES ALBUTEROL P.R.N.. SHE IS NOT ON ANY LONG-ACTING MAINTENANCE INHALERS. THIS PROBLEM OF THE NASAL ALLERGIES HAS GONE ON FOR MANY YEARS. PATIENT HAS BEEN TOLD ALLERGY PHYSICIANS THAT SHE HAS HIGH EOSINOPHIL COUNT. [facility] Medical History Eosinophilia Acute rhinosinusitis Bronchitis Rectal prolapse Annual physical exam Chronic cough Asthma Abdominal pain Arthritis Eosinophilia Hyperlipidemia HTN (hypertension) Surgical History S/P EMILE (total abdominal hysterectomy) H/O colonoscopy Inguinal hernia History of hysterectomy History of rectocele Family History Father Mental health disorder Mother Diabetes mellitus HTN (hypertension) Social History Housing: House Alcohol intake: never Patient Tobacco Use Status: Never used Tobacco e-Cigarette/Vaping Use: Never Used Second Hand Smoke Exposure: Yes Current occupational status: retired Cognitive needs: No Hearing needs: No Vision needs: Yes Review of Systems Const All systems reviewed & are unremarkable except as noted in HPI and below Eyes Reports no additional complaints ENT Reports nasal congestion (Mild off and on) and Reports nasal discharge Card Denies chest pain, Denies irregular heart rhythm and Denies leg edema Resp Reports as per HPI GI Reports GI cramping, Reports dyspepsia and Reports other (GI symptoms mostly related to foods, currently better on low gluten diet) Reports no additional complaints Musc Reports no additional complaints Skin/Breast Reports system reviewed and no additional complaints, except as documented Neuro Reports no additional complaints Psych Reports no additional complaints Physical Exam Vital Signs: Last Vital Signs Pulse 76 01/08/24 10:24 BP 142/84 H 01/08/24 10:24 Pulse Ox 96 01/08/24 10:24 Oxygen Delivery Method Room Air 01/08/24 10:24 BMI result Body Mass Index 22.7 Const General: healthy appearing, comfortable, no acute distress, alert and awake Orientation/consciousness: patient oriented x3 HEENT Head: Yes normal to inspection General nose exam: No nasal polyps present, abnormal septum (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, there is superficial excoriation over the septum.), No nasal discharge present and Other nasal findings present (SHE DOES HAVE MILD CHRONIC NASAL CONGESTION) Face and sinus: Yes sinuses nontender (BUT FEELS HEAVY OVER THE MAXILLARY SINUSES) Mouth: oropharynx abnormals (THERE IS ERYTHEMA AND MILD HYPERTROPHY OF THE PHARYNGEAL MUCOSA) Throat: Yes posterior oropharynx normal Eyes General: appearance normal, both eyes and all related structures Neck Neck: Yes normal visual inspection, Yes no lymphadenopathy, Yes trachea midline and Yes no JVD Thyroid: Thyroid normal Chest Chest palpation & inspection: normal inspection of the chest, normal palpation of entire chest wall and no tenderness Resp Other: Percussion note is resonant, breath sounds equal on both sides. NO WHEEZES OR RHONCHI ARE HEARD TODAY. Cardio Palpation: normal PMI Rate: regular rate Rhythm: regular rhythm Heart sounds: no gallops and no murmurs GI Palpation (GI): Soft to palpation, nontender, No hepatosplenomegaly present and no masses Auscultation: normal bowel sounds Back/Spine/Pelvis Thoracic/Lumbar Spine: thoracic and lumbar spine normal to inspection Skin General skin exam: no rashes or lesions noted Neuro General: patient oriented x3 and no focal motor deficits Cranial nerves: Yes CN's II-XII intact bilaterally Extrem General: Yes normal to inspection, Yes no clubbing, cyanosis or edema and Yes no calf tenderness Psych Appearance: grossly normal and well kempt Speech and movement: Normal speech and movement present Assessment & Plan Assessment & Plan (1) Allergic rhinitis: Comment: SHE HAS CHRONIC ALLERGIC RHINITIS., WITH SEASONAL FLARE UPS. Code(s): J30.9 - Allergic rhinitis, unspecified Category: Medical Plan: OK TO USE FLONASE 1 SPRAY EACH NOSTRIL B.I.D. AND ZYRTEC 10 MG HALF OR 1 TABLET ONCE A DAY P.R.N. I WOULD ALSO ADD MONTELUKAST 10 MG DAILY. (2) Asthma: Comment: SHE HAS MILD INTERMITTENT BRONCHIAL ASTHMA. AT PRESENT SEEMS TO BE UNDER GOOD CONTROL. Code(s): J45.909 - Unspecified asthma, uncomplicated Category: Medical Plan: USE ALBUTEROL HFA 2 PUFFS Q 4-6 HOURS ONLY P.R.N. 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 I DISCUSSED WITH HER THE TREATMENT PLAN. SHE IS AFRAID TO GO ON INJECTION ( BIOLOGIC) THERAPY. AT PRESENT I WILL START ON MONTELUKAST AND SEE IF THIS IS HELPFUL. AND IF NOT THEN I WOULD DEFINITELY CONSIDER STARTING ON BIOLOGIC TREATMENT. Medications: New montelukast 10 mg PO DAILY 30 days 30 tabs 3RF ALLERGIC RHINITIS Coding Level of Care Code Est Pt Level 3 (28101) Diagnoses Allergic rhinitis J30.9 Asthma J45.909 Eosinophilia D72.10
== END 2024-01-08 10:59 | disposition home or self-care (01) ==
PROVIDERS: PCP Internal Medicine; Visit Provider Internal Medicine
DX: J30.9 Allergic rhinitis, unspecified (principal); J45.909 Unspecified asthma, uncomplicated; D72.10 Eosinophilia, unspecified
CPT/HCPCS: 99213

== ENCOUNTER → 2024-01-08 10:08 | Outpatient (BNVA) | payer MEDICARE, OTHER, SELFPAY | PROVIDERS: PCP Internal Medicine; Visit Provider Internal Medicine | DX: J45.909 Unspecified asthma, uncomplicated (principal); D72.10 Eosinophilia, unspecified | CPT/HCPCS: 99212 ==

== ENCOUNTER 2024-01-09 12:45 | Outpatient (AMB) | payer MEDICARE, OTHER, SELFPAY ==
[2024-01-09 13:05] VITALS: BP 150/64; PULSE 79; BMI 22.7
--- NOTE | 2024-01-09 13:05 | A.OFFVIS_ITS ---
Vital Signs 01/09/24 13:05 Height 5 ft 4 in Weight 132 lb BMI 22.7 BP 150/64 H Blood Pressure Location Lt brachial Position Sitting Pulse 79 Intake Visit Reasons: 3 week follow up Intake Note: Nelia presents to in office 3 weeks follow up of labs and rectal bleeding. CC:She states that today she is feeling okay other than allergies. Publications Writer Required: No Allergies tramadol [TRAMADOL] Allergy (Severe, Verified 01/09/24 13:42) LETHARGY/VOMITING, nausea, vomiting levofloxacin [From LEVAQUIN] Allergy (Intermediate, Verified 01/09/24 13:42) TENDONITIS metronidazole [From FLAGYL] Allergy (Intermediate, Verified 01/09/24 13:42) NAUSEA, metalic taste, nausea Sulfa (Sulfonamide Antibiotics) [SULFA (SULFONAMIDE ANTIBIOTICS)] Allergy (Intermediate, Verified 01/09/24 13:42) N/V, nausea doxycycline Allergy (Unknown, Verified 01/09/24 13:42) Unknown nitrofurantoin [From Macrobid] Allergy (Verified 01/09/24 13:42) back pain pantoprazole Adverse Reaction (Severe, Verified 01/09/24 13:42) arm throbbing cigarette smoke Allergy (Unknown, Uncoded 01/09/24 13:42) vomitng HPI HPI 3 week follow up: Details: LAST VISIT: IBS (irritable bowel syndrome) Abdominal pain Acid reflux External hemorrhoid Plan Patient reports constipation, occasional blood on the stool when she was. Patient is afraid that she might have hemorrhoid that will require surgery. Rectal exam done. No blood visible on the glove. Brown stool noted. No hemorrhoids, no fissures, mild external hemorrhoid/skin tag. Patient was encouraged to take MiraLax daily and stool softener in the evening if unable to have a bowel movement. Will send patient to check CBC. Script for Proctosol send. Patient was encouraged to do Sitz baths with Epsom salts. She will return in the office in 3 weeks, sooner on as needed basis. She is agreeable to this plan and verbalizes understanding of instructions. She was given the opportunity to ask questions and all questions answered. ? Thank you for allowing me to participate in her care Orders Orders Vitamin B12 and Folate Today R19.7 Complete Blood Count no Diff Today K21.9 Vitamin D 25-OH (D2 and D3) Today E55.9 Medications New polyethylene glycol 3350 (Miralax) 17 grams PO DAILY 510 grams 3RF hydrocortisone 2.5% (Proctosol HC) 1 appl [place] BID-QID PRN 30 grams 0RF hemorrhoids Refilled docusate sodium 100 mg PO BEDTIME 90 caps 3RF K59.00 TODAY'S VISIT Patient is here today for follow-up and to discuss lab results. Patient had normal blood work. Reports that she has been moving her bowels better now. Patient is taking Colace and MiraLax and is moving her bowels better. Patient reports that her allergies and her postnasal drip as well as increase plan has been getting worse. Patient is taking Zyrtec every single night otherwise she will have increase phlegm and unable to sleep. Patient has seen Dr. Looney yesterday and was going to be started on new medication, however she declined taking it as it had too many side effects. Patient does admit that when she has ice cream she will have increased phlegm. Patient does admit to be eating lots of sweet food. We have discussed in the past that she should try to avoid anything that has high sugar content. Patient did had high eosinophilic count on her blood work that increased since last year. [facility] Medical History Eosinophilia Acute rhinosinusitis Bronchitis Rectal prolapse Annual physical exam Chronic cough Asthma Abdominal pain Arthritis Eosinophilia Hyperlipidemia HTN (hypertension) Surgical History S/P EMILE (total abdominal hysterectomy) H/O colonoscopy Inguinal hernia History of hysterectomy History of rectocele Family History Father Mental health disorder Mother Diabetes mellitus HTN (hypertension) Social History Housing: House Alcohol intake: never Patient Tobacco Use Status: Never used Tobacco e-Cigarette/Vaping Use: Never Used Second Hand Smoke Exposure: Yes Current occupational status: retired Cognitive needs: No Hearing needs: No Vision needs: Yes Review of Systems Const Denies weight gain and Denies weight loss ENT Reports no additional complaints, Denies dysphagia and Denies odynophagia Card Reports no additional complaints Resp Reports no additional complaints GI Denies abdominal pain, Denies belching, Denies melena, Denies bloating, Denies change in bowel habits, Reports constipation, Denies dysphagia, Denies excessive flatus, Denies dyspepsia, Reports heartburn, Denies diarrhea, Denies loose stools, Denies nausea, Denies odynophagia and Denies vomiting Reports no additional complaints Musc Reports no additional complaints Neuro Reports no additional complaints Psych Reports no additional complaints Endo Reports no additional complaints Physical Exam Vital Signs: Last Vital Signs Pulse 79 01/09/24 13:05 BP 150/64 H 01/09/24 13:05 BMI result Body Mass Index 22.7 Const General: healthy appearing, no acute distress and well developed Nutritional Appearance: well nourished Orientation/consciousness: patient oriented x3 Resp Effort & Inspection: normal respiratory effort, able to speak in complete sentences, no tracheal deviation and symmetric chest movement Auscultation: clear to auscultation bilaterally Cardio Rate: regular rate GI Inspection: Yes normal to inspection and No distended Palpation (GI): Soft to palpation, not firm, nontender and No hepatosplenomegaly present Auscultation: normal bowel sounds Rectal Exam - Female: visual inspection normal, normal sphincter tone and External hemorrhoid(s) present General: Yes no CVA tenderness Back/Spine/Pelvis Back: no CVA tenderness Skin General skin exam: elasticity normal, turgor normal and dry skin Neuro General: patient oriented x3 Psych Appearance: grossly normal Mental Status: mental status grossly normal Affect: Anxious affect present Results Reviewed Results Reviewed: Laboratory Tests 01/09/23 06/16/23 06/16/23 09:34 08:30 13:58 RBC Hgb Hct Eos % (Auto) 5.6 H Total Bilirubin 0.3 Direct Bilirubin 0.1 AST 18 ALT 16 Alkaline Phosphatase 80 Lipase 33 Vitamin B12 25-OH Vitamin D Total Folate TSH Stool Pancreat Elastase >500 12/19/23 15:13 RBC 4.35 Hgb 13.0 Hct 39.3 Eos % (Auto) 7.3 H Total Bilirubin Direct Bilirubin AST 18 ALT 12 Alkaline Phosphatase Lipase Vitamin B12 823 25-OH Vitamin D Total 48 Folate 15.9 TSH 2.15 Stool Pancreat Elastase Assessment & Plan Assessment & Plan (1) IBS (irritable bowel syndrome): Code(s): K58.9 - Irritable bowel syndrome without diarrhea Category: Medical Qualifiers: Irritable bowel syndrome type: with constipation Qualified Code(s): K58.1 - Irritable bowel syndrome with constipation (2) Abdominal pain: Code(s): R10.9 - Unspecified abdominal pain Category: Medical Qualifiers: Abdominal location: generalized Qualified Code(s): R10.84 - Generalized abdominal pain (3) Acid reflux: Code(s): K21.9 - Gastro-esophageal reflux disease without esophagitis Category: Medical Qualifiers: Esophagitis presence: esophagitis presence not specified Qualified Code(s): K21.9 - Gastro-esophageal reflux disease without esophagitis (4) External hemorrhoid: Code(s): K64.4 - Residual hemorrhoidal skin tags Plan Continue taking Zyrtec. Patient is taking Zyrtec at bedtime as it helps with her allergies and postnasal drip. Patient can continue taking Flonase as ordered by Dr. Looney. In the morning she should take famotidine before breakf ast this will help control her mucus and can be helpful with second-generation H1 heena combination. Patient can also be sent for allergy testing which I believe she already had in the past. Patient will return in 2 months and if she continues with symptoms we will send her for allergen testing. Patient is to avoid lactose at this time. May try Ethiopian ice, sherbert or lactose free gelato. Patient was encouraged to avoid late night snacking. Staying upright for minimum 3 hours after meals discussed with patient. Patient is agreeable to this plan and verbalizes understanding of instructions. She was given the opportunity to ask questions and all questions answered. Thank you for allowing me to participate in her care Medications: New famotidine (Pepcid) 20 mg PO DAILY 30 tabs 3RF K21.9 - Gastro-esophageal reflux disease without esophagitis Coding Level of Care Code Est Pt Level 4 (94904) Diagnoses Irritable bowel syndrome with constipation K58.1 Irritable bowel syndrome type: with constipation Generalized abdominal pain R10.84 Abdominal location: generalized Gastroesophageal reflux disease, unspecified whether esophagitis present K21.9 Esophagitis presence: esophagitis presence not specified External hemorrhoid K64.4 Time Spent (min) 35 Comment 20 minutes spent with patient and additional 15 minutes spent reviewing her records
== END 2024-01-09 14:26 | disposition home or self-care (01) ==
PROVIDERS: PCP Internal Medicine; Visit Provider Nurse Practitioner Family
DX: K58.1 Irritable bowel syndrome with constipation (principal); R10.84 Generalized abdominal pain; K21.9 Gastro-esophageal reflux disease without esophagitis; K64.4 Residual hemorrhoidal skin tags
CPT/HCPCS: 99214

== ENCOUNTER → 2024-01-09 12:45 | Outpatient (BNVA) | payer MEDICARE, OTHER, SELFPAY | PROVIDERS: PCP Internal Medicine; Visit Provider Nurse Practitioner Family | DX: K58.1 Irritable bowel syndrome with constipation (principal); K21.9 Gastro-esophageal reflux disease without esophagitis; K64.4 Residual hemorrhoidal skin tags; R10.84 Generalized abdominal pain | CPT/HCPCS: 99212 ==

== ENCOUNTER 2024-01-14 11:09 | Outpatient (AMB) | payer MEDICARE, OTHER, SELFPAY ==
--- NOTE | 2024-01-14 11:35 | MHC.PC.OV ---
Vital Signs 01/14/24 11:36 Height 5 ft 4 in Weight 129 lb BMI 22.1 BP 118/66 Blood Pressure Location Rt brachial Position Sitting Pulse 82 Pulse Source Pulse Oximeter Pulse Oximetry (%) 96 Oxygen Delivery Method Room Air Intake Visit Reasons: Follow up Intake Note: Pt is here today for a follow up visit. Allergies tramadol [TRAMADOL] Allergy (Severe, Verified 01/14/24 11:44) LETHARGY/VOMITING, nausea, vomiting levofloxacin [From LEVAQUIN] Allergy (Intermediate, Verified 01/14/24 11:44) TENDONITIS metronidazole [From FLAGYL] Allergy (Intermediate, Verified 01/14/24 11:44) NAUSEA, metalic taste, nausea Sulfa (Sulfonamide Antibiotics) [SULFA (SULFONAMIDE ANTIBIOTICS)] Allergy (Intermediate, Verified 01/14/24 11:44) N/V, nausea doxycycline Allergy (Unknown, Verified 01/14/24 11:44) Unknown nitrofurantoin [From Macrobid] Allergy (Verified 01/14/24 11:44) back pain pantoprazole Adverse Reaction (Severe, Verified 01/14/24 11:44) arm throbbing cigarette smoke Allergy (Unknown, Uncoded 01/14/24 11:44) vomitng Medication List - Last Reconciled 01/14/24 by Hiwot Almeida MD albuterol sulfate 90 mcg/actuation 2 puffs inhalation Q4-6H PRN cetirizine (Zyrtec) 10 mg PO DAILY PRN docusate sodium 100 mg PO BEDTIME famotidine (Pepcid) 20 mg PO DAILY fluticasone propionate 50 mcg/actuation (Flonase Allergy Relief) 1 spray intranasal BID PRN hydrocortisone 2.5% (Proctosol HC) 1 appl [place] BID-QID PRN lisinopril 20 mg PO BID metoprolol succinate ER 50 mg PO DAILY montelukast 10 mg PO DAILY 30 days pediatric multivitamin (Gummi Bear Multivitamin chewable tablet) 1 tab PO DAILY polyethylene glycol 3350 (Miralax) 17 grams PO DAILY simvastatin 20 mg PO BEDTIME triamcinolone acetonide 0.025% appl topical vitamins A,C,U-tgpk-acnipn (PreserVision AREDS) PO BID Tobacco use date assessed: 01/14/24 Fall risk assessment: No Falls in past year Last assessed Fall Risk: 01/14/24 Dental Screening Dental Screen Date: 01/14/24 Did you have a dental visit in the last 12 months?: No Did you have a dental problem in the last 6 months where you did not have access to dental care?: No Was dental information given to patient?: Patient declined HPI Follow up HPI Details Pt presents for f/u HTN and hyperlipid, stable on meds. pt f/u with pulmonology for chronic asthma. She has been taking albuterol only twice a day and refuses to use steroid inhalers or try montelukast PFSH Medical History Eosinophilia Acute rhinosinusitis Bronchitis Rectal prolapse Annual physical exam Chronic cough Asthma Abdominal pain Arthritis Eosinophilia Hyperlipidemia HTN (hypertension) Surgical History S/P EMILE (total abdominal hysterectomy) H/O colonoscopy Inguinal hernia History of hysterectomy History of rectocele Family History Father Mental health disorder Mother Diabetes mellitus HTN (hypertension) Social History Housing: House Alcohol intake: never Patient Tobacco Use Status: Never used Tobacco e-Cigarette/Vaping Use: Never Used Second Hand Smoke Exposure: Yes service: No Current occupational status: retired Cognitive needs: No Hearing needs: No Vision needs: Yes Questionnaire PHQ-9 Over the last 2 weeks, how often have you been bothered by any of the following problems? 1. Little interest or pleasure in doing things: not at all 2. Feeling down, depressed, or hopeless: not at all 3. Trouble falling or staying asleep, or sleeping too much: not at all 4. Feeling tired or having little energy: not at all 5. Poor appetite or overeating: not at all 6. Feeling bad about yourself - or that you are a failure or have let yourself or your family down: not at all 7. Trouble concentrating on things, such as reading the newspaper or watching television: not at all 8. Moving or speaking so slowly that other people could have noticed. Or the opposite - being so fidgety or restless that you have been moving around a lot more than usual: not at all 9. Thoughts that you would be better off or of hurting yourself in some way: not at all Total score: 0 Depression Screening Interpretation: Negative Depression Screening Done: Yes Source: Developed by Drs. Tejinder Hutson, Geena Carvajal, Josse Londono and colleagues, with an educational ana from [employer]. Thrive Questionnaire Date Thrive assessed: 01/14/24 I am a: Patient What is your living situation today?: I have a steady place to live Within the past 12 months, did the food you bought not last and you didn't have the money to get more?: Never true Within the past 12 months, did you worry whether your food would run out before you got money to buy more?: Never true Do you have trouble paying for medicines?: No Do you have trouble getting transportation to medical appointments?: No Do you have trouble paying your heating and electricity bill?: No Do you have trouble taking care of your child, family member or friend?: No Do you have trouble with day-to-day activities such as bathing, preparing meals, shopping, managing finances, etc.?: No Are you currently unemployed and looking for a job?: No Are you interested in more education?: No Please select the resources that you would like help with: None THRIVE Score: 0 AUDIT C Alcohol Use Questionnaire (AUDIT-C) 1. How often do you have a drink containing alcohol?: Monthly or less 2. How many drinks containing alcohol do you have on a typical day when you are drinking?: 1 or 2 3. How often do you have six or more drinks on one occasion?: Never Total Score: 1 JUANCHO-7 AMB Questionnaire JUANCHO-7 Date JUANCHO - 7 assessed: 01/14/24 Feeling nervous, anxious, or on edge: 0 = Not at all Not being able to stop or control worryin = Not at all Worrying too much about different things: 0 = Not at all Trouble relaxin = Not at all Being so restless that it is hard to sit still: 0 = Not at all Becoming easily annoyed or irritable: 0 = Not at all Feeling afraid as if something awful might happen: 0 = Not at all Total JUANCHO-7 score (0-4 normal; 5-9 mild; 10-14 moderate; 15-21 severe): 0 Source: Developed by Drs. Tejinder Hutson, Geena Carvajal, Josse Londono and colleagues, with an educational ana from [employer]. Review of Systems Const All systems reviewed & are unremarkable except as noted in HPI and below Eyes Reports no additional complaints ENT Reports no additional complaints Card Reports no additional complaints Resp Reports no additional complaints GI Reports no additional complaints Reports no additional complaints Physical exam (Primary Care) Vital Signs: Last Vital Signs Pulse 82 01/14/24 11:36 BP 118/66 01/14/24 11:36 Pulse Ox 96 01/14/24 11:36 Oxygen Delivery Method Room Air 01/14/24 11:36 BMI result Body Mass Index 22.1 Tobacco/Smoking Status: Tobacco use Status Tobacco use date assessed 01/14/24 01/14/24 11:47 Patient Tobacco Use Status Never used Tobacco 01/14/24 11:47 e-Cigarette/Vaping Use Never Used 01/14/24 11:36 PHQ-9: PHQ-9 Score PHQ-9: Total score 0 01/14/24 11:47 Depression Screening Interpretation: Negative Thrive Assessment: Date of Thrive Assessment Date Thrive assessed 01/14/24 01/14/24 11:47 Const General: no acute distress HENMT Head: Yes normal to inspection Ears: hearing grossly normal bilaterally General nose exam: Normal external nose present Face and sinus: Yes normal facial exam Mouth: Normal oral and palatal mucosa present Teeth and gingiva: dentition normal Resp Effort & Inspection: normal respiratory effort Auscultation: wheezes and diminished lung sounds Cardio Rhythm: regular rhythm Heart sounds: S1 normal heart sound present and S2 normal heart sound present GI Inspection: Yes normal to inspection Palpation (GI): Soft to palpation Percussion: Yes normal to percussion Auscultation: normal bowel sounds Assessment and Plan Assessment & Plan (1) Dysuria: Code(s): R30.0 - Dysuria Plan: For chronic dysuria check UA and culture (2) Hyperlipidemia: Code(s): E78.5 - Hyperlipidemia, unspecified Plan: Continue statin (3) HTN (hypertension): Code(s): I10 - Essential (primary) hypertension Plan: Continue lisinopril and metoprolol (4) Asthma: Comment: SHE HAS MILD INTERMITTENT BRONCHIAL ASTHMA. AT PRESENT SEEMS TO BE UNDER GOOD CONTROL. Code(s): J45.909 - Unspecified asthma, uncomplicated Plan: Follow-up with pulmonology use albuterol p.r.n. Orders: Orders UA w Microscopic Today R30.0 - Dysuria Urine Culture Today R30.0 - Dysuria Comprehensive [place]. Panel Fast 6 Months E78.5 - Hyperlipidemia, unspecified, I10 - Essential (primary) hypertension, J45.909 - Unspecified asthma, uncomplicated Lipid Panel 6 Months E78.5 - Hyperlipidemia, unspecified, I10 - Essential (primary) hypertension, J45.909 - Unspecified asthma, uncomplicated Complete Blood Count Auto Diff 6 Months E78.5 - Hyperlipidemia, unspecified, I10 - Essential (primary) hypertension, J45.909 - Unspecified asthma, uncomplicated TSH reflex Free T4 6 Months E78.5 - Hyperlipidemia, unspecified, I10 - Essential (primary) hypertension, J45.909 - Unspecified asthma, uncomplicated Medications: Discontinued montelukast Discontinued Reason: Doctor's Order 10 mg PO DAILY 30 days 30 tabs 3RF ALLERGIC RHINITIS Coding Level of Care Code Est Pt Level 4 (27819) Diagnoses Dysuria R30.0 Hyperlipidemia E78.5 HTN (hypertension) I10 Asthma J45.909
[2024-01-14 11:36] VITALS: BP 118/66; PULSE 82; O2SAT 96; BMI 22.1
== END 2024-01-14 13:00 | disposition home or self-care (01) ==
LOC: HO.HMGC 11:09
PROVIDERS: PCP Internal Medicine; Visit Provider Internal Medicine
DX: R30.0 Dysuria (principal); E78.5 Hyperlipidemia, unspecified; I10 Essential (primary) hypertension; J45.909 Unspecified asthma, uncomplicated
CPT/HCPCS: 99214

== ENCOUNTER 2024-01-14 12:51 | Outpatient (REF) | payer MEDICARE, OTHER, SELFPAY ==
[2024-01-14 16:03] LABS: Appearance Urine Clear; Color Urine Yellow; Glucose Urine UA Negative (Negative); Leukocyte Esterase Urine Negative (Negative); Nitrite Urine Negative (Negative); PH 6.5 (5.0-9.0); Specific Gravity - Urine 1.015 (1.005-1.025); Urine Blood Negative (Negative); Urine Ketones Negative (Negative); Urine Protein Negative (Neg-Trace)
[2024-01-14 16:06] LABS: Bacteria Urine None Seen (None Seen); Hyaline Casts Urine 0-2 /LPF (0-2); RBC Urine 0-2 /HPF (0-2); Squamous Epithelial Cell Urine 0-2 /HPF (0-2); WBC Urine 0-5 /HPF (0-5)
== END 2024-01-14 12:52 | disposition home or self-care (01) ==
LOC: HO.HMGCLDS 12:51
PROVIDERS: PCP Internal Medicine; Visit Provider Internal Medicine
DX: R30.0 Dysuria (principal)
CPT/HCPCS: 81001; 87086

== ENCOUNTER 2024-06-24 13:34 | Outpatient (AMB) | payer MEDICARE, OTHER, SELFPAY ==
[2024-06-24 13:40] VITALS: BP 140/68; PULSE 82; O2SAT 96; BMI 22.7
--- NOTE | 2024-06-24 13:40 | MHC.OFFVIS ---
Vital Signs 06/24/24 13:40 Height 5 ft 4 in Weight 132 lb 4.438 oz BMI 22.7 BP 140/68 H Blood Pressure Location Lt brachial Position Sitting Pulse 82 Pulse Source Pulse Oximeter Pulse Oximetry (%) 96 Oxygen Delivery Method Room Air Intake Visit Reasons: cough Intake Note: pt is here for follow up and states she still coughs a lot but mostly after she eats. she has a few questions. 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 Allergies tramadol [TRAMADOL] Allergy (Severe, Verified 06/24/24 14:11) LETHARGY/VOMITING, nausea, vomiting levofloxacin [From LEVAQUIN] Allergy (Intermediate, Verified 06/24/24 14:11) TENDONITIS metronidazole [From FLAGYL] Allergy (Intermediate, Verified 06/24/24 14:11) NAUSEA, metalic taste, nausea Sulfa (Sulfonamide Antibiotics) [SULFA (SULFONAMIDE ANTIBIOTICS)] Allergy (Intermediate, Verified 06/24/24 14:11) N/V, nausea doxycycline Allergy (Unknown, Verified 06/24/24 14:11) Unknown nitrofurantoin [From Macrobid] Allergy (Verified 06/24/24 14:11) back pain pantoprazole Adverse Reaction (Severe, Verified 06/24/24 14:11) arm throbbing cigarette smoke Allergy (Unknown, Uncoded 06/24/24 14:11) vomitng Medication List - Last Reconciled 06/24/24 by Jo Ann Looney MD albuterol sulfate 90 mcg/actuation 2 puffs inhalation Q4-6H PRN cetirizine (Zyrtec) 10 mg PO DAILY PRN docusate sodium 100 mg PO BEDTIME famotidine (Pepcid) 20 mg PO DAILY fluticasone propionate 50 mcg/actuation (Flonase Allergy Relief) 1 spray intranasal BID PRN hydrocortisone 2.5% (Proctosol HC) 1 appl ND BID-QID PRN lisinopril 20 mg PO BID metoprolol succinate ER 50 mg PO DAILY pediatric multivitamin (Gummi Bear Multivitamin chewable tablet) 1 tab PO DAILY polyethylene glycol 3350 (Miralax) 17 grams PO DAILY simvastatin 20 mg PO BEDTIME triamcinolone acetonide 0.025% appl topical vitamins A,C,I-aogd-vinszq (PreserVision AREDS) PO BID Do you need a note to return to daycare/school/sports/work: No HPI HPI cough: Details: THIS 83 YEARS OLD VERY PLEASANT FEMALE, NONSMOKER, WITH SYMPTOMS OF CHRONIC NASAL CONGESTION POSTNASAL DRIP AND COUGH, COMES AFTER 6 MONTHS FOR FOLLOW-UP. HER SYMPTOMS HAVE BEEN MOSTLY DUE TO ALLERGIC RHINITIS, AND SHE HAS HAD MILD EOSINOPHILIA. PATIENT WANTS TO STAY MOSTLY ON CONSERVATIVE TREATMENT. SHE WAS PRESCRIBED MONTELUKAST BUT SHE DID NOT TAKE AFTER SHE READ THE SIDE EFFECTS, INCLUDING DEPRESSION. IN THE LAST 6 MONTHS HER CONDITION HAS REMAINED FAIRLY STABLE WITHOUT ANY WORSENING. SHE TELLS ME THAT SHE IS COPING WITH HER SYMPTOMS BETTER THAN BEFORE. IT SHOULD BE NOTED THAT SHE DOES NOT HAVE BRONCHIAL ASTHMA OR COPD. SHE DOES HAVE SOME COUGH AND OCCASIONAL WHEEZING WHICH IS PROBABLY SECONDARY TO POSTNASAL DISCHARGE. SHE HAS ALBUTEROL TO USE P.R.N. BUT HARDLY NEEDS TO USE IT. PFS Medical History Eosinophilia Acute rhinosinusitis Bronchitis Rectal prolapse Annual physical exam Chronic cough Asthma Abdominal pain Arthritis Eosinophilia Hyperlipidemia HTN (hypertension) Surgical History S/P EMILE (total abdominal hysterectomy) H/O colonoscopy Inguinal hernia History of hysterectomy History of rectocele Family History Father Mental health disorder Mother Diabetes mellitus HTN (hypertension) Social History Housing: House Alcohol intake: never Patient Tobacco Use Status: Never used Tobacco e-Cigarette/Vaping Use: Never Used Second Hand Smoke Exposure: Yes service: No Current occupational status: retired Cognitive needs: No Hearing needs: No Vision needs: Yes Review of Systems Const All systems reviewed & are unremarkable except as noted in HPI and below Eyes Reports no additional complaints ENT Reports nasal congestion (Mild off and on) and Reports nasal discharge Card Denies chest pain, Denies irregular heart rhythm and Denies leg edema Resp Reports as per HPI GI Reports GI cramping, Reports dyspepsia and Reports other (GI symptoms mostly related to foods, currently better on low gluten diet) Reports no additional complaints Musc Reports no additional complaints Skin/Breast Reports system reviewed and no additional complaints, except as documented Neuro Reports no additional complaints Psych Reports no additional complaints Physical Exam Vital Signs: Last Vital Signs Pulse 82 06/24/24 13:40 BP 140/68 H 06/24/24 13:40 Pulse Ox 96 06/24/24 13:40 Oxygen Delivery Method Room Air 06/24/24 13:40 BMI result Body Mass Index 22.7 Const General: healthy appearing, comfortable, no acute distress, alert and awake Orientation/consciousness: patient oriented x3 HEENT Head: Yes normal to inspection General nose exam: No nasal polyps present, abnormal septum (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, there is superficial excoriation over the septum.), No nasal discharge present and Other nasal findings present (SHE DOES HAVE MILD CHRONIC NASAL CONGESTION) Face and sinus: Yes sinuses nontender (BUT FEELS HEAVY OVER THE MAXILLARY SINUSES) Mouth: oropharynx abnormals (THERE IS ERYTHEMA AND MILD HYPERTROPHY OF THE PHARYNGEAL MUCOSA) Throat: Yes posterior oropharynx normal Eyes General: appearance normal, both eyes and all related structures Neck Neck: Yes normal visual inspection, Yes no lymphadenopathy, Yes trachea midline and Yes no JVD Thyroid: Thyroid normal Chest Chest palpation & inspection: normal inspection of the chest, normal palpation of entire chest wall and no tenderness Resp Other: Percussion note is resonant, breath sounds equal on both sides. NO WHEEZES OR RHONCHI ARE HEARD TODAY. Cardio Palpation: normal PMI Rate: regular rate Rhythm: regular rhythm Heart sounds: no gallops and no murmurs GI Palpation (GI): Soft to palpation, nontender, No hepatosplenomegaly present and no masses Auscultation: normal bowel sounds Back/Spine/Pelvis Thoracic/Lumbar Spine: thoracic and lumbar spine normal to inspection Skin General skin exam: no rashes or lesions noted Neuro General: patient oriented x3 and no focal motor deficits Cranial nerves: Yes CN's II-XII intact bilaterally Extrem General: Yes normal to inspection, Yes no clubbing, cyanosis or edema and Yes no calf tenderness Psych Appearance: grossly normal and well kempt Speech and movement: Normal speech and movement present Assessment & Plan Assessment & Plan (1) Allergic rhinitis: Comment: SHE HAS CHRONIC ALLERGIC RHINITIS., WITH SEASONAL FLARE UPS. Code(s): J30.9 - Allergic rhinitis, unspecified Category: Medical Plan: CONTINUE FLONASE-52 SPRAYS IN EACH NOSTRIL DAILY MAY USE ZYRTEC 10 MG ONCE A DAY P.R.N. (2) Chronic cough: Comment: PATIENT HAS CHRONIC COUGH WHICH COMES IN BOUTS AND MOSTLY RELATED TO ALLERGIC RHINITIS WITH POSTNASAL DRIP, RELATIVELY UNDER CONTROL AT THIS TIME Code(s): R05 - Cough Category: Medical Plan: UNDER ALLERGIC RHINITIS. ALSO HAVE ALBUTEROL MDI ON HAND AND USE 1 OR 2 PUFFS Q 6 HOURS P.R.N. IF THERE IS PERSISTENT COUGH (3) Asthma: Comment: SHE HAS MILD INTERMITTENT BRONCHIAL ASTHMA. AT PRESENT SEEMS TO BE UNDER GOOD CONTROL. Code(s): J45.909 - Unspecified asthma, uncomplicated Category: Medical Plan: CONTINUE TO USE ALBUTEROL HFA 2 PUFFS Q.6 HOURS P.R.N. Coding Level of Care Code Est Pt Level 3 (41619) Diagnoses Allergic rhinitis J30.9 Chronic cough R05 Asthma J45.909
== END 2024-06-24 14:11 | disposition home or self-care (01) ==
LOC: HO.HPS 13:34
PROVIDERS: PCP Internal Medicine; Visit Provider Internal Medicine
DX: J30.9 Allergic rhinitis, unspecified (principal); R05.9 Cough, unspecified; J45.909 Unspecified asthma, uncomplicated
CPT/HCPCS: 99213

== ENCOUNTER → 2024-06-24 13:34 | Outpatient (BNVA) | payer MEDICARE, OTHER, SELFPAY | PROVIDERS: PCP Internal Medicine; Visit Provider Internal Medicine | DX: R05.3 Chronic cough (principal); J45.20 Mild intermittent asthma, uncomplicated; J82.83 Eosinophilic asthma; J30.9 Allergic rhinitis, unspecified | CPT/HCPCS: 99212 ==

== ENCOUNTER 2024-07-20 14:21 | Outpatient (AMB) | payer MEDICARE, OTHER, SELFPAY ==
--- NOTE | 2024-07-20 14:39 | MHC.OFFVIS ---
Vital Signs 07/20/24 14:41 Height 5 ft 4 in Weight 130 lb 1.164 oz BMI 22.3 BP 159/64 H Blood Pressure Location Lt brachial Position Sitting Pulse 75 Intake Visit Reasons: 6 month follow up Abd pain Intake Note: Nelia presents in the office as a 6 month follow up for abdominal pains. CC: She states she is not having pains in the stomach but she was having rectal bleeding. She was given the Hydrocortisone cream and it works at times. She was eating a salad with pecans and she states that the next day she will have bleeding the next day. 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 Allergies tramadol [TRAMADOL] Allergy (Severe, Verified 07/20/24 14:40) LETHARGY/VOMITING, nausea, vomiting levofloxacin [From LEVAQUIN] Allergy (Intermediate, Verified 07/20/24 14:40) TENDONITIS metronidazole [From FLAGYL] Allergy (Intermediate, Verified 07/20/24 14:40) NAUSEA, metalic taste, nausea Sulfa (Sulfonamide Antibiotics) [SULFA (SULFONAMIDE ANTIBIOTICS)] Allergy (Intermediate, Verified 07/20/24 14:40) N/V, nausea doxycycline Allergy (Unknown, Verified 07/20/24 14:40) Unknown nitrofurantoin [From Macrobid] Allergy (Verified 07/20/24 14:40) back pain pantoprazole Adverse Reaction (Severe, Verified 07/20/24 14:40) arm throbbing cigarette smoke Allergy (Unknown, Uncoded 07/20/24 14:40) vomitng HPI HPI 6 month follow up Abd pain: Details: LAST VISIT: IBS (irritable bowel syndrome) Abdominal pain Acid reflux External hemorrhoid Plan Continue taking Zyrtec. Patient is taking Zyrtec at bedtime as it helps with her allergies and postnasal drip. Patient can continue taking Flonase as ordered by Dr. Looney. In the morning she should take famotidine before breakfast this will help control her mucus and can be helpful with second-generation H1 heena combination. Patient can also be sent for allergy testing which I believe she already had in the past. Patient will return in 2 months and if she continues with symptoms we will send her for allergen testing. Patient is to avoid lactose at this time. May try Tristanian ice, sherbert or lactose free gelato. Patient was encouraged to avoid late night snacking. Staying upright for minimum 3 hours after meals discussed with patient. Patient is agreeable to this plan and verbalizes understanding of instructions. She was given the opportunity to ask questions and all questions answered. ? Thank you for allowing me to participate in her care Medications New famotidine (Pepcid) 20 mg PO DAILY 30 tabs 3RF K21.9 TODAY'S VISIT Patient is here today for follow-up. Patient reports that she has been having more frequent abdominal cramping in the left lower quadrant. Patient reports that she is not using MiraLax daily. Reports blood in his stool after bowel movement occasionally continues to have postprandial abdominal bloating depending on what she eats. Patient states that when she eats bigger meals she feels like the food stays in her stomach for a long time. Patient denies dyspepsia, dysphagia or odynophagia acid reflux is controlled for the most part. Patient is concerned that she might not be getting enough nutrients would like to see if we can send her to driller hand so she can discuss meal planning. Patient feels frustrated trying to manage her diet and meals. [facility] Medical History Eosinophilia Acute rhinosinusitis Bronchitis Rectal prolapse Annual physical exam Chronic cough Asthma Abdominal pain Arthritis Eosinophilia Hyperlipidemia HTN (hypertension) Surgical History S/P EMILE (total abdominal hysterectomy) H/O colonoscopy Inguinal hernia History of hysterectomy History of rectocele Family History Father Mental health disorder Mother Diabetes mellitus HTN (hypertension) Social History Housing: House Alcohol intake: never Patient Tobacco Use Status: Never used Tobacco e-Cigarette/Vaping Use: Never Used Second Hand Smoke Exposure: Yes service: No Current occupational status: retired Cognitive needs: No Hearing needs: No Vision needs: Yes Review of Systems Const Denies weight gain and Denies weight loss ENT Reports no additional complaints, Denies dysphagia and Denies odynophagia Card Reports no additional complaints Resp Reports no additional complaints GI Denies abdominal pain, Denies belching, Denies melena, Denies bloating, Reports hematochezia (After bowel movement), Denies change in bowel habits, Reports constipation, Denies dysphagia, Denies excessive flatus, Denies dyspepsia, Denies heartburn, Denies diarrhea, Denies loose stools, Denies nausea, Denies odynophagia and Denies vomiting Reports no additional complaints Musc Reports no additional complaints Neuro Reports no additional complaints Psych Reports no additional complaints Endo Reports no additional complaints Physical Exam Vital Signs: Last Vital Signs Pulse 75 07/20/24 14:41 BP 159/64 H 07/20/24 14:41 BMI result Body Mass Index 22.3 Const General: healthy appearing, no acute distress and well developed Nutritional Appearance: well nourished Orientation/consciousness: patient oriented x3 Resp Effort & Inspection: normal respiratory effort, able to speak in complete sentences, no tracheal deviation and symmetric chest movement Auscultation: clear to auscultation bilaterally Cardio Rate: regular rate GI Inspection: Yes normal to inspection and No distended Palpation (GI): Soft to palpation, not firm, nontender and No hepatosplenomegaly present Auscultation: normal bowel sounds Rectal Exam - Female: visual inspection normal, normal sphincter tone and External hemorrhoid(s) present General: Yes no CVA tenderness Back/Spine/Pelvis Back: no CVA tenderness Skin General skin exam: elasticity normal, turgor normal and dry skin Neuro General: patient oriented x3 Psych Appearance: grossly normal Mental Status: mental status grossly normal Affect: Anxious affect present Assessment & Plan Assessment & Plan (1) IBS (irritable bowel syndrome): Code(s): K58.9 - Irritable bowel syndrome, unspecified Category: Medical Qualifiers: Irritable bowel syndrome type: with constipation Qualified Code(s): K58.1 - Irritable bowel syndrome with constipation (2) Abdominal pain: Code(s): R10.9 - Unspecified abdominal pain Category: Medical Qualifiers: Abdominal location: generalized Qualified Code(s): R10.84 - Generalized abdominal pain (3) Acid reflux: Code(s): K21.9 - Gastro-esophageal reflux disease without esophagitis Category: Medical Qualifiers: Esophagitis presence: esophagitis presence not specified Qualified Code(s): K21.9 - Gastro-esophageal reflux disease without esophagitis (4) External hemorrhoid: Code(s): K64.4 - Residual hemorrhoidal skin tags Plan Long discussion with patient about dietary changes. List of food recommended as well as list of food to avoid given to patient. As per request referral send for patient to see driller hand to help with meal planning. Continue famotidine, avoid dietary triggers and late night snacking. Staying upright for minimum 3 hours after meals discussed with patient. Patient was encouraged to take MiraLax daily to help her move her bowels better stool softeners recommended, avoid straining. Sitz baths with Epsom salt as needed Orders: Referrals Motor Vehicle Licence Examiner Nutrition Referral E83.51 - Hypocalcemia Coding Level of Care Code Est Pt Level 4 (61429) Complex EM visit Add On G2211 Diagnoses Irritable bowel syndrome with constipation K58.1 Irritable bowel syndrome type: with constipation Generalized abdominal pain R10.84 Abdominal location: generalized Gastroesophageal reflux disease, unspecified whether esophagitis present K21.9 Esophagitis presence: esophagitis presence not specified External hemorrhoid K64.4 Time Spent (min) 35 Comment 25 minutes spent with patient and additional 10 minutes spent reviewing her records
[2024-07-20 14:41] VITALS: BP 159/64; PULSE 75; BMI 22.3
== END 2024-07-20 15:40 | disposition home or self-care (01) ==
PROVIDERS: PCP Internal Medicine; Visit Provider Nurse Practitioner Family
DX: K58.1 Irritable bowel syndrome with constipation (principal); R10.84 Generalized abdominal pain; K21.9 Gastro-esophageal reflux disease without esophagitis; K64.4 Residual hemorrhoidal skin tags
CPT/HCPCS: 99214; G2211

== ENCOUNTER → 2024-07-20 14:21 | Outpatient (BNVA) | payer MEDICARE, OTHER, SELFPAY | PROVIDERS: PCP Internal Medicine; Visit Provider Nurse Practitioner Family | DX: K58.1 Irritable bowel syndrome with constipation (principal); K21.9 Gastro-esophageal reflux disease without esophagitis; R10.84 Generalized abdominal pain; K64.4 Residual hemorrhoidal skin tags; E83.51 Hypocalcemia | CPT/HCPCS: 99212 ==

== ENCOUNTER → 2024-09-03 15:20 | Outpatient (BNVA) | payer MEDICARE, OTHER, SELFPAY | PROVIDERS: PCP Internal Medicine; Visit Provider Nurse Practitioner Family | DX: K58.1 Irritable bowel syndrome with constipation (principal); K21.9 Gastro-esophageal reflux disease without esophagitis; K64.4 Residual hemorrhoidal skin tags; R10.84 Generalized abdominal pain | CPT/HCPCS: 99212 ==

== ENCOUNTER 2024-09-21 10:44 | Outpatient (AMB) | payer MEDICARE, OTHER, SELFPAY ==
[2024-09-21 11:20] VITALS: BMI 22.3
--- NOTE | 2024-09-21 11:20 | MHC.AMNUTRGE ---
VS Expanded 09/21/24 11:20 09/27/24 10:30 Height 5 ft 4 in 5 ft 4 in Weight 130 lb 1.164 oz 130 lb BMI 22.3 22.3 Intake Visit Reasons: Hypocalcemia Allergies tramadol [TRAMADOL] Allergy (Severe, Verified 09/03/24 15:39) LETHARGY/VOMITING, nausea, vomiting levofloxacin [From LEVAQUIN] Allergy (Intermediate, Verified 09/03/24 15:39) TENDONITIS metronidazole [From FLAGYL] Allergy (Intermediate, Verified 09/03/24 15:39) NAUSEA, metalic taste, nausea Sulfa (Sulfonamide Antibiotics) [SULFA (SULFONAMIDE ANTIBIOTICS)] Allergy (Intermediate, Verified 09/03/24 15:39) N/V, nausea doxycycline Allergy (Unknown, Verified 09/03/24 15:39) Unknown nitrofurantoin [From Macrobid] Allergy (Verified 09/03/24 15:39) back pain pantoprazole Adverse Reaction (Severe, Verified 09/03/24 15:39) arm throbbing cigarette smoke Allergy (Unknown, Uncoded 07/20/24 14:40) vomitng Nutrition Presentation Details: Pt presents for MNT for hypocalcemia Pt presents to appt with daughter and . Need education on non dairy Calcium rich food options BS Monitoring Most Recent Diabetes Results: No Data to Display IWV-Lxytgul-Ob.Jeor Equation Height: 5 ft 4 in Weight: 130 lb Resting Metabolic Rate: 1030.80 Calculated Activity Level: Mild Activity Calories Needed to Maintain Weight: 1417.35 Diagnosis Nutrition problem #1: food nutri know defi As related to (etiology) #1: diagnosis As evidenced by (sign/symptom) #1: knowledge deficit of diet (non dairy food sources of calcium willing to try) Learning/Education Readiness to learn: good PFSH Medical History Eosinophilia Acute rhinosinusitis Bronchitis Rectal prolapse Annual physical exam Chronic cough Asthma Abdominal pain Arthritis Eosinophilia Hyperlipidemia HTN (hypertension) Surgical History S/P EMILE (total abdominal hysterectomy) H/O colonoscopy Inguinal hernia History of hysterectomy History of rectocele Family History Father Mental health disorder Mother Diabetes mellitus HTN (hypertension) Social History Housing: House Alcohol intake: never Patient Tobacco Use Status: Never used Tobacco e-Cigarette/Vaping Use: Never Used Second Hand Smoke Exposure: Yes service: No Current occupational status: retired Cognitive needs: No Hearing needs: No Vision needs: Yes Assessment & Plan Assessment & Plan (1) Hypocalcemia: Code(s): E83.51 - Hypocalcemia Category: Medical Plan: Educate on non dairy , calcium rich food options and importance of physical activity for bone health Wt: 59 kg est kcal needs as per 25-30 kcal/kg BW: 1500 -1800 est prot need as per 1g/kg bw: 59 kg est fluid needs a per 30 ml/kg BW: 1800 Rec sodium: 6827-7905 mg/d Patient Instructions: Choose lactose free milk - see list of options, aim at 2 cups per day Include cooked spinach , figs, kale at least 2 times a week include fish with bones (sardines, canned salmon as en example) 2 times a week keep physically active as able Coding Level of Care Code Nutr Indiv Intake (00349) Diagnoses Hypocalcemia E83.51 Time Spent (min) 30
--- OUTSIDE RECORDS SUMMARY | 2024-09-21 11:51 | XMS_ITS | Patient Health Record ---
[facility] Address [address] [place] [address] Care Team Providers Care Skip Pit Worker Name Role Phone Hiwot Almeida MD Primary Care Provider Unavaila ble Black, Lori Unavailable [phone] Allergies Allergen (clinical drug ingredient) Drug/Non Drug Allergy documented on EMR Reaction Allergy Type Onset Date Status tramadol Tramadol HCl nausea, vomiting Drug Allergy Active codeine Codeine dizziness Drug Allergy Active doxycycline Doxycycline Unknown Drug Allergy Act amarjit levofloxacin Levofloxacin Unknown Drug Allergy A ctive metronidazole Metronidazole Unknown Drug Allergy Active nitrofurantoin Nitrofurantoin Unknown Drug Allergy Active Substance with sulfonamide structure and antibacterial mechanism of action (substance) Sulfa Antibiotics nausea Drug Allergy Active Reason For Referral No Information Medications Medication SIG (Take, Route, Frequency, Duration) Notes Start Date End Date Status Alendronate Sodium 70 MG Orally Once a day Not-Taking Copper Not-Taking Losartan Potassium 100 MG Orally Once a day Not-Taking Docusate Sodium Not- Taking Pravastatin Sodium 20 MG Orally Not-Taking Ketorolac Tromethamine 0.5 % 1 drop into affected eye as needed Ophthalmic Four times a day Not-Taking Multivitamin - 1 tablet Orally Once a day for 30 day(s) Not-Taking PreserVision AREDS 2 Active Polyethylene Glycol 3350 17 GM/SCOOP as directed Orally Not-Takin g Metoprolol Succinate 50 MG 1 capsule Orally Once a day for 30 day(s) Active Zinc Not-Taking Lisinopril 20 MG 1 tablet Orally Once a day for 30 day(s) Active Vitamin A Not-Taking Simvastatin 20 MG 1 tablet in the even ing Orally Once a day for 30 day(s) Active Vitamin C Not-Taking Nightsplint . . . AFO - L1930 for . Active Vitamin E Not-Taking Physical Therapy . . . 2-3x/week for 3- 4 weeks 01/03/2023 Not-Taking Wheat Dextrin - as directed Orally Not-Taking Albuterol Sulfate No t-Taking Social History Tobacco use other than smoking: Question Answer Notes Are you an other tobacco user? No Problems Problem Type SNOMED Code ICD Code Onset Dates Problem Status W/U Status Risk Notes Problem [id number] Pronation deformity of left foot (M21.6X2) Active confirmed Plan Of Treatment Pending Test Test Name Order Date X ray : Foot, left 3V 01/03/2023 Insurance Providers Payer Name Payer Address Payer Phone Subscriber Number Group Number Insured Name Patient Relationship to Insured Coverage Start Date Coverage End Date Medicare [employer] [address] [place] [address] [id number] Nelia Winkler Self - patient is the insured [facility] [address] [place] [address] [id number] Nelia Winkler Self - patient is the insured Medical (General) History Medical History History ICD Code Arthritis Back,Hip,and Knee pain Chicken pox Diverticulosis Hypercholesterolemia Hypertension Joint implants/screws Macular degeneration Measles Osteoporosis Sinus conditions Cholesterol Cataracts Anxiety Depression Irritable bowel syndrome Surgical History Surgery Date(Month/Year) left hip replacement 2010 colonoscopy hysterectomy 1979 rectocele repair inguinal hernia repair
--- OUTSIDE RECORDS SUMMARY | 2024-09-21 11:51 | XMS_ITS ---
Author Organization [facility] Address [address] [facility] [address] Care Team Providers Care Natural History Collections Curator Name Role Phone Hiwot Almeida MD Primary Care Provider Unavaila ble Black, Lori Unavailable [phone] Allergies Allergen (clinical drug ingredient) Drug/Non Drug [...] (substance) Sulfa Antibiotics nausea Drug Allergy Active REASON FOR VISIT pt states last pcp visit 02/2023, Heel pain Medications Medication SIG (Take, Route, Frequency, Duration) Notes Start Date End Date Status Copper Not-Taking Docusate Sodium Not- Taking Ketorolac Tromethamine 0.5 % 1 drop into affected eye as needed Ophthalmic Four times a day Not-Taking Multivitamin - 1 tablet Orally Once a day for 30 day(s) Not-Taking Albuterol Sulfate No t-Taking Metoprolol Succinate 50 MG 1 capsule Orally Once a day for 30 day(s) Active Lisinopril 20 MG 1 tablet Orally Once a day for 30 day(s) Active Simvastatin 20 MG 1 tablet in the even ing Orally Once a day for 30 day(s) Active Nightsplint . . . AFO - L1930 for . Active Physical Therapy . . . 2-3x/week for 3- 4 weeks 01/03/2023 Not-Taking Alendronate Sodium 70 MG Orally Once a day Not-Taking Losartan Potassium 100 MG Orally Once a day Not-Taking Pravastatin Sodium 20 MG Orally Not-Taking PreserVision AREDS 2 Active Wheat Dextrin - as directed Orally Not-Taking Polyethylene Glycol 3350 17 GM/SCOOP as directed Orally Not-Takin g Zinc Not-Taking Vitamin A Not-Taking Vitamin C Not-Taking Vitamin E Not-Taking Social History Tobacco use other than smoking: Question Answer Notes Are you an other tobacco user? 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 Assessments Encounter Date Diagnosis (ICD Code) Assessment Notes Treatment Notes Treatment Clinical Notes Section Notes 05/23/2023 Plantar fascial fibromatosis (ICD-10 - M72.2) Acute problem, Stable (1=3) 05/23/2023 Pain in left foot (ICD-10 - M79.672) 05/23/2023 Bursitis of left foot (ICD-10 - M77.52) 05/23/2023 Achilles tendinitis of left lower extremity (ICD-10 - M76.62) 05/23/2023 Other myositis, left ankle and foot (ICD-10 - M60.872) 05/23/2023 Pronation deformity of left foot (ICD-10 - M21.6X2) Plan Of Treatment Next Appt Details Follow Up: 4 Weeks, Reason: Progress Notes * Nelia WINKLERDOB: [birth year] (82 yo F)Acc No.[id number]:05/23/2023 Progress Note Patient:?Nelia Winkler Provider:?Lori Bell DPM :1940???Age:82 Y???Sex:Female D ate:05/23/2023 Address:[address], [id number] Pcp:Hiwot Almeida MD Subjective: * Chief Complaints: * ???Pt states last pcp visit 02/2023Heel pain * HPI: ???Heel pain:?Nature:?tenderness, sharp pain, stiffness.?Location:?Proximal plantar aspect of Heel.?Duration:?several months-(2-3).?Onset/Cause:?unknown , denies trauma.?Course:?improved , , at approximately 80 %.?Aggrevated:?standing, walking, walking first thing in the morning/after rest.?Treatments:?innersoles/orthotics , change in shoes , physical therapy , stretching.?Severity/Quality:?moderate.? pt presents with 4 pair of custom orthotics. * ROS:?General/Constitutional:?Nausea?denies, denies.?Vomiting?denies, denies.?Hunger Thirst?denies, denies.?Loss appetite?denies, denies.?Chills?denies, denies.?Fatigue?denies, denies.?Fever?denies, denies.?Night Sweats denies, denies.?Unexplained weight loss?denies, denies.?Unexplained weight gain?denies, denies.?HEENTM:?Dentures?admits, admits.?Dizziness?denies, denies.?Glasses/contacts?admits, admits.?Retinopathy?denies, denies.?Blurred/double vision?denies, denies.?TMJ?denies, denies.?Discharge/drainage?denies, denies.?Implants?denies, denies.?Sore throat?denies, denies.?Dental implants?denies, denies.?Hard of hearing ?denies, denies.?Difficulty chewing/swallowing/speaking?denies, denies.?Nose bleeds?denies, denies.?Sore mouth?denies, denies.?Respiratory:?On Oxygen?denies, denies.?Pneumonia/pleurisy?denies, denies.?Bronchitis?denies, denies.?Emphysema?denies, denies.?Coughing?admits, admits.?Cough blood?denies, denies.?Shortness of breath?denies, denies.?Wheezing?denies, denies.?Cardiovascular:?Pacemaker?denies, denies.?MVP?denies, denies.?WPW?denies, denies.?CHF?denies, denies.?Heart attack?denies, denies.?Septal defect?denies, denies.?Rapid beat?denies, denies.?Chest pain ?denies, denies.?Atrial Fib.?denies, denies.?Murmur/Palpitations?denies, denies.?Gastrointestinal:?Hemorrhoids?denies, denies.?Stomach/Abdominal pain?denies, denies.?Dark blood stool?denies, denies.?Irritable bowel ?admits, admits.?Constipation?admits, admits.?Diarrhea?denies, denies.?Hematology:?Swelling?denies, denies.?Clots?denies, denies.?Varicose Veins?denies, denies.?Bruising?denies, denies.?Bleeding problem?denies, denies.?Genitourinary:?Blood urine?denies, denies.?Frequent/Painfu/urination/bladder control?denies, denies.?Kidney stones?denies, denies.?Infection (UTI)?denies, denies.?Nephropathy?denies, denies.?sex trans dis (STD)?denies, denies.?Prostate?denies, denies.?Musculoskeletal:?Hammertoes?admits, admits.?Bunions?denies, denies.?Back Pain?admits, admits.?Muscle Cramps/ Resting?denies, denies.?Muscle cramps / walking?denies, denies.?Generalized aches and pains?admits, admits.?Weakness?denies, denies.?Integ.:?Claire?denies, denies.?Scars?denies, denies.?Corns/calluses?denies, denies.?Ingrown nails?denies, denies.?Painful nails?denies, denies.?Open Sores?denies, denies.?Rashes?denies, denies.?Neurologic:?Difficulty sleeping?denies, denies.?Brain disorder?denies, denies.?Numbness?denies, denies.?Balance trouble?denies, denies.?Confusion?denies, denies.?Fainting/blackouts?denies, denies.?Tingling?denies, denies.?Tremors?denies, denies.? * Medical History:? * Surgical History:?left hip r eplacement 2011colonoscopy hysterectomy 1979rectocele repair inguinal hernia repair * Hospitalization/Major Diagno stic Procedure:?No Hospitalization History. * Family History:?Mother: dece ased, diagnosed with Diabetic - NIDDM, Unspecified essential hypertension, Unspecified cerebral artery occlusion with cerebral infarction.?Father: , foot problems, diagnosed with Family history of arthritis.?Daughter(s): alive.?Son(s): alive.?2 son(s) , 3 daughter(s) . .? * Social History:?Tobacco Use:?Tobacco Use/Smoking?Are you a:: nonsmoker , Additional Findings: Tobacco Non-User: Current non-smoker.?Tobacco use other than smoking?Are you an other tobacco user??No ???Drugs/Alcohol:?Drugs?Have you used drugs other than those for medical reasons in the past 12 months??No ?Alcohol Screen?Did you have a drink containing alcohol in the past year?: Yes, Points: 0, Interpretation: Negative.?Miscellaneous:?Caffeine: yes, frequency:, 1-2 cups per day. ?Children: five. ?Exercise: yes, strength training. ?Marital status: . ?Occupation: retired. * Medications:?TakingPreserVis ion AREDS 2 Metoprolol Succinate 50 MG Capsule ER 24 Hour Sprinkle 1 capsule Orally Once a dayLisinopril 20 MG Tablet 1 tablet Orally Once a daySimvastatin 20 MG Tablet 1 tablet in the evening Orally Once a dayNightsplint . . . . AFO - M0914Rgohve PreserVision AREDS 2 Taking Metoprolol Succinate 50 MG Capsule ER 24 Hour Sprinkle 1 capsule Orally Once a dayTaking Lisinopril 20 MG Tablet 1 tablet Orally Once a dayTaking Simvastatin 20 MG Tablet 1 tablet in the evening Orally Once a dayTaking Nightsplint . . . . AFO - T6722Wpp-Igaisp/PRNPhysical Therapy . . . . 2-3x/weekAlbuterol Sulfate Copper Docusate Sodium Ketorolac Tromethamine 0.5 % Solution 1 drop into affected eye as needed Ophthalmic Four times a dayMultivitamin - Tablet 1 tablet Orally Once a dayPolyethylene Glycol 3350 17 GM/SCOOP Powder as directed Orally Zinc Vitamin A Vitamin C Vitamin E Wheat Dextrin - Powder as directed Orally Alendronate Sodium 70 MG Tablet Effervescent Orally Once a dayLosartan Potassium 100 MG Tablet Orally Once a dayPravastatin Sodium 20 MG Tablet Orally Medication List reviewed and reconciled with the patientNot-Taking/PRN Physical Therapy . . . . 2-3x/weekNot-Taking/PRN Albuterol Sulfate Not-Taking/PRN Copper Not-Taking/PRN Docusate Sodium Not-Taking/PRN Ketorolac Tromethamine 0.5 % Solution 1 drop into affected eye as needed Ophthalmic Four times a dayNot-Taking/PRN Multivitamin - Tablet 1 tablet Orally Once a dayNot-Taking/PRN Polyethylene Glycol 3350 17 GM/SCOOP Powder as directed Orally Not-Taking/PRN Zinc Not-Taking/PRN Vitamin A Not-Taking/PRN Vitamin C Not-Taking/PRN Vitamin E Not-Taking/PRN Wheat Dextrin - Powder as directed Orally Not-Taking/PRN Alendronate Sodium 70 MG Tablet Effervescent Orally Once a dayNot-Taking/PRN Losartan Potassium 100 MG Tablet Orally Once a dayNot-Taking/PRN Pravastatin Sodium 20 MG Tablet Orally Medication List reviewed and reconciled with the patient * Allergies:?Tramadol HCl: bret sea, vomitingLevofloxacinMetronidazoleDoxycyclineNitrofurantoinSulfa Antibiotics: nauseaCodeine: dizzinessyes[Allergies Verified] Objective: * Vitals:?Ht: 5ft 3in, Wt: 130 , BMI:23.03, Shoe size: 10. * Examination: ???Orthopedic: ?MUSCLE STRENGTH:?5/5 all groups in a symmetrical fashion, B/L.?GAIT ABNORMALITY:? antalgic, Pronated, abducted angle and base of gate L>R.?FOOT MORPHOLOGY:? Pes Planus structure, Decreased Ankle joint dorsiflexion ROM, knee extended.?DIGITAL DEFORMITIES:?Digital contracture, PIPJ, 2-5 B/L, incompl-reducible with WB, or to push-up test, no over, nor underlapping.?FOOTWEAR:?good condition, exhibit proper fit and accommodation for pedal deformities. OT were inspected and noted to be? in good condition giving proper support at the present time (2 pairs, 2 pairs worn recomm. nor using).?Heel Pain: ?INSPECTION REVEALS:?less Pain on Palpation to Plantar Fascia med. and central bands, intrinsic musc., infracalcaneal bursa, and med calc tubercle, B/L, No pain: posterior/superior heel, achilles bursa/tendon, sinus tarsi, peroneals, or with lateral heel compression; no limited STJ ROM, calor, or ecchymosis , Right minor pain , Pain on palpation to Achilles tendon/bursa with inflammation and swelling present left.? Assessment: * Assessment: 1.?Plantar fascial fibromato sis - M72.2 (Primary), left, Acute problem, Stable (1=3)?2.?Pain in left foot - M79.672?3.?Bursitis of left foot - M77.52?4.?Achilles tendinitis of left lower extremity - M76.62?5.?Other myositis, left ankle and foot - M60.872?6.?Pronation deformity of left foot - M21.6X2? Plan: * Treatment: * Procedure Codes:? * Preventive Medicine:? ??Counseling:?Discussion:?-13: Office or other outpatient visit for the evaluation and management of an established patient, which required a medically appropriate history and/or examination and LOW level of DECISION MAKING for: 1 STABLE ACUTE UNCOMPLICATED PROBLEM, 2 OR MORE MINOR PROBLEMS, OR 1 STABLE CHRONIC PROBLEM, THAT POSE(S) A LOW RISK FOR MORBIDITY/MORTALITY. The visit on the day of the encounter encompassed interpreting the data and educating the patient as to the nature of their condition, treatment options available according to their individual PMH, meds, allergies, and overall health/living conditions, as well as any potential risks or complications that may occur from a failure to adhere to, and participate in, the recommended course of therapy. The discussion included a complete verbal, and/or written explanation of the examination results, any x-rays taken, the proposed diagnosis, and outline of the treatment plan. A schedule for future care needs was also explained. The patient verbalized an understanding of the instructions at this time and agreed to be an active participant in their treatment. If the patient should think of any questions or concerns after the visit, I have encouraged the patient to call the office.?F/u Visit:?The Pt. was counseled on the remaining treatment options and importance of adherence to recomm; the Pt wishes to continue present protocol longer. Discussed present orthotics- 2 pairs she can use with new supportive neutral sneakers i.e. [place] [employer]. Pt will continue stretching on a daily basis.? * Follow Up:?4 Weeks * Images: * Sign off status: Completed true * Provider:?Lori Bell DPM Date:?2022 Generated for Melanie cruz/Yasmani/Simon on:?09/21/2024 11:51 AM EST History and Physical Notes * HPI (History of Present Illness) Category Sub-Category Detail Notes Category Not es Heel pain Duration: several months-(2-3) pt pre sents with 4 pair of custom orthotics Nature: tenderness, sharp pa in, stiffness Severity/Quality: moderate Location: Proximal plantar asp ect of Heel Onset/Cause: unknown , denies tra jared Aggravated: standing, walking, w alking first thing in the morning/after rest Course: improved , , at appr oximately 80 % Treatments: innersoles/orthotics , change in shoes , physical therapy , stretching Examination Category Sub-Category Detail Notes Category Not es Heel Pain INSPECTION REVEALS: less Pain on Palpation to Plantar Fascia med. and central bands, intrinsic musc., infracalcaneal bursa, and med calc tubercle, B/L, No pain: posterior/superior heel, achilles bursa/tendon, sinus tarsi, peroneals, or with lateral heel compression; no limited STJ ROM, calor, or ecchymosis , Right minor pain , Pain on palpation to Achilles tendon/bursa with inflammation and swelling present left Orthopedic GAIT ABNORMALITY: antalgic, Pron ated, abducted angle and base of gate L>R FOOT MORPHOLOGY: Pes Planus structure , Decreased Ankle joint dorsiflexion ROM, knee extended FOOTWEAR: good condition, exhi bit proper fit and accommodation for pedal deformities. OT were inspected and noted to be in good condition giving proper support at the present time (2 pairs, 2 pairs worn recomm. nor using) DIGITAL DEFORMITIES: Digital contracture , PIPJ, 2-5 B/L, incompl-reducible with WB, or to push-up test, no over, nor underlapping MUSCLE STRENGTH: 5/5 all groups in a symmetrical fashion, B/L
[2024-09-27 10:30] VITALS: BMI 22.3
== END 2024-09-21 11:51 | disposition home or self-care (01) ==
PROVIDERS: PCP Internal Medicine; Visit Provider Dietitian, Registered
DX: E83.51 Hypocalcemia (principal)

== ENCOUNTER → 2024-09-21 10:44 | Outpatient (BNVA) | payer MEDICARE, OTHER, SELFPAY | PROVIDERS: PCP Internal Medicine; Visit Provider Dietitian, Registered | DX: E83.51 Hypocalcemia (principal); Z71.3 Dietary counseling and surveillance | CPT/HCPCS: 97802 ==

== ENCOUNTER 2024-09-24 12:49 | Outpatient (REF) | payer MEDICARE, OTHER, SELFPAY ==
--- NOTE | ~2024-09-24 | US_ITS ---
EXAMINATION: US PELVIS LIMITED HISTORY: R10.31 - Right lower quadrant pain/tenderness. Evaluate for inguinal/ventral hernia. COMPARISON: Correlation is made with a CT of the abdomen and pelvis dated 07/09/2022. FINDINGS: Sonographic examination of the right lower quadrant was performed. No hernia is visualized. US/US pelvic limited IMPRESSION: No right lower quadrant hernia is identified. Electronically signed by: Tejinder Benitez MD 09/24/2024 01:30 PM [facility]
== END 2024-09-24 12:50 | disposition home or self-care (01) ==
LOC: HO.HMGCX 12:49
PROVIDERS: Visit Provider Nurse Practitioner Family
DX: R10.31 Right lower quadrant pain (principal)
CPT/HCPCS: 76857

== ENCOUNTER → 2024-09-24 12:51 | Outpatient (BNV) | payer MEDICARE, OTHER, SELFPAY | PROVIDERS: Visit Provider Radiology Diagnostic Radiology | DX: R10.31 Right lower quadrant pain (principal) | CPT/HCPCS: 76857 ==

== ENCOUNTER 2024-10-15 10:45 | Outpatient (AMB) | payer MEDICARE, OTHER, SELFPAY ==
--- NOTE | 2024-10-15 10:48 | MHC.OFFVIS ---
Vital Signs 10/15/24 11:08 Height 5 ft 4 in Weight 133 lb 2.547 oz BMI 22.9 BP 154/60 H Blood Pressure Location Rt brachial Position Sitting Pulse 72 Pulse Source Pulse Oximeter Pulse Oximetry (%) 98 Oxygen Delivery Method Room Air Intake Visit Reasons: 1 mos FUV Intake Note: ESTABLISHED PATIENT for mgmt of IBS, abd pain, hematochezia. US done. Chief Complaint; Pt reports that she is doing much better since making small dietary and lifestyle changes. Pt does have multiple questions about what changes she is making and what impact they have. Pt also reports having questions about other specialists that she may be able to get referrals for. Pt denies any other concerns or sx at this time. Finisher Operator Required: No Allergies tramadol [TRAMADOL] Allergy (Severe, Verified 10/15/24 10:53) LETHARGY/VOMITING, nausea, vomiting levofloxacin [From LEVAQUIN] Allergy (Intermediate, Verified 10/15/24 10:53) TENDONITIS metronidazole [From FLAGYL] Allergy (Intermediate, Verified 10/15/24 10:53) NAUSEA, metalic taste, nausea Sulfa (Sulfonamide Antibiotics) [SULFA (SULFONAMIDE ANTIBIOTICS)] Allergy (Intermediate, Verified 10/15/24 10:53) N/V, nausea doxycycline Allergy (Unknown, Verified 10/15/24 10:53) Unknown nitrofurantoin [From Macrobid] Allergy (Verified 10/15/24 10:53) back pain pantoprazole Adverse Reaction (Severe, Verified 10/15/24 10:53) arm throbbing cigarette smoke Allergy (Unknown, Uncoded 10/15/24 10:53) vomitng HPI HPI 1 mos FUV: Details: LAST VISIT: IBS (irritable bowel syndrome) Abdominal pain Acid reflux External hemorrhoid Plan Patient reports right lower quadrant pain will send her for ultrasound to rule out any hernias. No hernias however palpated. Area is nontender. Patient will take senna. Currently she is taking docusate sodium and not emptying her bowels completely. Patient will try [id number] probiotics with fiber. She is not taking enough fiber. Increase fluid intake to at least 3 8 oz bottles a day. Continue follow low FODMAP diet. Avoid dairy that includes cheese and ice cream. Patient will follow-up in 5 weeks. She will call our office if she will have worsening GI symptoms. She is agreeable to this plan and verbalizes understanding of instructions. She was given the opportunity to ask questions and all questions answered. ? Thank you for allowing me to participate in her care Orders Orders US pelvic limited 09/03/24 R10.31 Medications New sennosides (Natural Senna Laxative) 17.2 mg (2 x 8.6 mg) PO BEDTIME 60 tabs 3RF constipation K59.00 Discontinued docusate sodium Discontinued Reason: Doctor's Order 100 mg PO BEDTIME 90 caps 3RF K59.00 TODAY'S VISIT: Patient is here today for follow-up. Patient reports that she has been doing better in the last month. Patient's son bowling ball molder and was told by her as well to avoid lactose. Patient bought lactate, does not like the taste but reports that she is feeling better. Patient is not eating cheese and she no longer experiences constipation and abdominal bloating. Patient denies melena, hematochezia. Denies acid reflux. No longer is taking famotidine. Patient reports that she is moving her bowels better takes MiraLax occasionally. Patient denies dyspepsia, dysphagia or odynophagia. Patient admits to snacking at night. Patient has trouble falling asleep and she will usually have popcorn with salt and canola oil. Patient admits that sometimes she will wake up in the middle of the night feeling hungry and she will have wheat crackers. PFSH Medical History Eosinophilia Acute rhinosinusitis Bronchitis Rectal prolapse Annual physical exam Chronic cough Asthma Abdominal pain Arthritis Eosinophilia Hyperlipidemia HTN (hypertension) Surgical History S/P EMILE (total abdominal hysterectomy) H/O colonoscopy Inguinal hernia History of hysterectomy History of rectocele Family History Father Mental health disorder Mother Diabetes mellitus HTN (hypertension) Social History Housing: House Alcohol intake: never Patient Tobacco Use Status: Never used Tobacco e-Cigarette/Vaping Use: Never Used Second Hand Smoke Exposure: Yes service: No Current occupational status: retired Cognitive needs: No Hearing needs: No Vision needs: Yes Review of Systems Const Denies weight gain and Denies weight loss ENT Reports no additional complaints, Denies dysphagia and Denies odynophagia Card Reports no additional complaints Resp Reports no additional complaints GI Denies abdominal pain, Denies belching, Denies melena, Denies bloating, Denies change in bowel habits, Denies dysphagia, Denies excessive flatus, Denies dyspepsia, Denies heartburn, Denies diarrhea, Denies loose stools, Denies nausea, Denies odynophagia and Denies vomiting Musc Reports no additional complaints Neuro Reports no additional complaints Psych Reports no additional complaints Endo Reports no additional complaints Physical Exam Const General: healthy appearing, no acute distress and well developed Nutritional Appearance: well nourished Orientation/consciousness: patient oriented x3 Resp Effort & Inspection: normal respiratory effort, able to speak in complete sentences, no tracheal deviation and symmetric chest movement Auscultation: clear to auscultation bilaterally Cardio Rate: regular rate GI Inspection: Yes normal to inspection and No distended Palpation (GI): Soft to palpation, not firm, nontender and No hepatosplenomegaly present Auscultation: normal bowel sounds Rectal Exam - Female: visual inspection normal, normal sphincter tone and External hemorrhoid(s) present General: Yes no CVA tenderness Back/Spine/Pelvis Back: no CVA tenderness Skin General skin exam: elasticity normal, turgor normal and dry skin Neuro General: patient oriented x3 Psych Appearance: grossly normal Mental Status: mental status grossly normal Affect: Anxious affect present Results Reviewed Results Reviewed: PELVIC ULTRASOUND FINDINGS: Sonographic examination of the right lower quadrant was performed. No hernia is visualized. US/US pelvic limited IMPRESSION: No right lower quadrant hernia is identified. Assessment & Plan Assessment & Plan (1) IBS (irritable bowel syndrome): Code(s): K58.9 - Irritable bowel syndrome, unspecified Category: Medical Qualifiers: Irritable bowel syndrome type: with constipation Qualified Code(s): K58.1 - Irritable bowel syndrome with constipation (2) Abdominal pain: Code(s): R10.9 - Unspecified abdominal pain Category: Medical Qualifiers: Abdominal location: generalized Qualified Code(s): R10.84 - Generalized abdominal pain (3) Acid reflux: Code(s): K21.9 - Gastro-esophageal reflux disease without esophagitis Category: Medical Qualifiers: Esophagitis presence: esophagitis presence not specified Qualified Code(s): K21.9 - Gastro-esophageal reflux disease without esophagitis (4) External hemorrhoid: Code(s): K64.4 - Residual hemorrhoidal skin tags Plan Patient will continue low FODMAP diet. She is following up with bowling ball molder. Continue avoiding dietary triggers. Patient was encouraged to stay upright for minimum 3 hours after meals. Discouraged patient from eating late at night. Try something light like rice crackers. Patient will try fairlife milk instead of Lactaid milk. Patient will follow low FODMAP diet as we discussed in the past. Stay away from wheat as it caused patient bloating. Patient has list of food that is recommended at home and she will try to follow-up. Patient will take MiraLax as needed. Follow-up in 3 months, sooner on as needed basis. Patient is agreeable to this plan and verbalizes understanding of instructions. She was given the opportunity to ask questions and all questions answered. Thank you for allowing me to participate in her care I am sorry for chewing Medications: Refilled hydrocortisone 2.5% (Proctosol HC) 1 appl MS BID-QID PRN 30 grams 2RF hemorrhoids Discontinued famotidine (Pepcid) Discontinued Reason: Patient no longer taking 20 mg PO DAILY 30 tabs 3RF K21.9 - Gastro-esophageal reflux disease without esophagitis Coding Level of Care Code Est Pt Level 4 (04679) Complex EM visit Add On G2211 Diagnoses Irritable bowel syndrome with constipation K58.1 Irritable bowel syndrome type: with constipation Generalized abdominal pain R10.84 Abdominal location: generalized Gastroesophageal reflux disease, unspecified whether esophagitis present K21.9 Esophagitis presence: esophagitis presence not specified External hemorrhoid K64.4 Time Spent (min) 35 Comment 25 minutes spent with patient and additional 10 minutes spent reviewing her records
[2024-10-15 11:08] VITALS: BP 154/60; PULSE 72; O2SAT 98; BMI 22.9
--- OUTSIDE RECORDS SUMMARY | 2024-10-15 11:49 | XMS_ITS ---
Author Organization [facility] Address [address] [facility], [place] [address] Care Team Providers Care Roll Filler Name Role Phone Hiwot Almeida MD Primary Care Provider Unavaila ble Black, Lori Unavailable [phone] Allergies Allergen (clinical drug ingredient) Drug/Non Drug [...] 05/23/2023 Encounters Encounter Location Date Provider Diagnosis [facility] [address] 05/23/2023 Lori Bell Plantar fascial fibromatosis M72.2 [...] * Nelia WINKLERDOB: [birth year] (82 yo F)Acc No.[id number]:05/23/2023 Progress Note Patient:?Nelia Winkler Provider:?Lori Bell DPM :1940???Age:82 Y???Sex:Female D ate:05/23/2023 Address:[address], [id number] Pcp:Hiwot Almeida MD Subjective: * Chief Complaints: [...] dayNightsplint . . . . AFO - E2201Artexy PreserVision AREDS 2 Taking Metoprolol Succinate 50 MG Capsule ER 24 Hour Sprinkle 1 capsule Orally Once a dayTaking Lisinopril 20 MG Tablet 1 tablet Orally Once a dayTaking Simvastatin 20 MG Tablet 1 tablet in the evening Orally Once a dayTaking Nightsplint . . . . AFO - K0327Grn-Hkrlvt/PRNPhysical Therapy . . . . 2-3x/weekAlbuterol Sulfate [...] Bell DPM Date:?2022 Generated for Melanie cruz/Yasmani/Simon on:?10/15/2024 11:48 AM EST History and Physical Notes * [...]
--- OUTSIDE RECORDS SUMMARY | 2024-10-15 11:49 | XMS_ITS | Patient Health Record ---
[facility] Address [address] [place] [address] Care Team Providers Care Pitch Filler Name Role Phone Hiwot Almeida MD Primary Care Provider Unavaila ble Black, Lori Unavailable [phone] Allergies Allergen (clinical drug ingredient) Drug/Non Drug [...] Problem Status W/U Status Risk Notes Problem [id number] Pronation deformity of left foot (M21.6X2) Active confirmed Plan Of Treatment Pending Test Test Name Order Date X ray : Foot, left 3V 01/03/2023 Insurance Providers Payer Name Payer Address Payer Phone Subscriber Number Group Number Insured Name Patient Relationship to Insured Coverage Start Date Coverage End Date Medicare National [employer] [address] [place] [address] [id number] Nelia Winkler Self - patient is the insured [facility] [address] [place] [address] [id number] Nelia Winkler Self - patient is [...]
== END 2024-10-15 11:28 | disposition home or self-care (01) ==
PROVIDERS: PCP Internal Medicine; Visit Provider Nurse Practitioner Family
DX: K58.1 Irritable bowel syndrome with constipation (principal); R10.84 Generalized abdominal pain; K21.9 Gastro-esophageal reflux disease without esophagitis; K64.4 Residual hemorrhoidal skin tags
CPT/HCPCS: 99214; G2211

== ENCOUNTER → 2024-10-15 10:45 | Outpatient (BNVA) | payer MEDICARE, OTHER, SELFPAY | PROVIDERS: PCP Internal Medicine; Visit Provider Nurse Practitioner Family | DX: K58.1 Irritable bowel syndrome with constipation (principal); K21.9 Gastro-esophageal reflux disease without esophagitis; K64.4 Residual hemorrhoidal skin tags; R10.84 Generalized abdominal pain | CPT/HCPCS: 99212 ==

== ENCOUNTER 2024-11-16 10:10 | Outpatient (AMB) | payer MEDICARE, OTHER, SELFPAY ==
--- NOTE | 2024-11-16 10:45 | A.OFFVIS_ITS ---
VS Expanded 11/16/24 14:05 Height 5 ft 4 in Weight 131 lb 2.21 oz BMI 22.5 Intake Visit Reasons: hypocalcemia Allergies tramadol [TRAMADOL] Allergy (Severe, Verified 10/15/24 10:53) LETHARGY/VOMITING, nausea, vomiting levofloxacin [From LEVAQUIN] Allergy (Intermediate, Verified 10/15/24 10:53) TENDONITIS metronidazole [From FLAGYL] Allergy (Intermediate, Verified 10/15/24 10:53) NAUSEA, metalic taste, nausea Sulfa (Sulfonamide Antibiotics) [SULFA (SULFONAMIDE ANTIBIOTICS)] Allergy (Intermediate, Verified 10/15/24 10:53) N/V, nausea doxycycline Allergy (Unknown, Verified 10/15/24 10:53) Unknown nitrofurantoin [From Macrobid] Allergy (Verified 10/15/24 10:53) back pain pantoprazole Adverse Reaction (Severe, Verified 10/15/24 10:53) arm throbbing cigarette smoke Allergy (Unknown, Uncoded 10/15/24 10:53) vomitng Nutrition Presentation Details: Pt presents for MNT f/u for hypocalcemia Pt reports reading an anti inflammatory diet book and has multiple questions regarding antiinflamatory foods Pt reports choosing lactose free and finds it helpful, adding spinach , working on including non dairy alternatives with calcium BS Monitoring Most Recent Diabetes Results: No Data to Display [facility] Medical History Eosinophilia Acute rhinosinusitis Bronchitis Rectal prolapse Annual physical exam Chronic cough Asthma Abdominal pain Arthritis Eosinophilia Hyperlipidemia HTN (hypertension) Surgical History S/P EMILE (total abdominal hysterectomy) H/O colonoscopy Inguinal hernia History of hysterectomy History of rectocele Family History Father Mental health disorder Mother Diabetes mellitus HTN (hypertension) Social History Housing: House Alcohol intake: never Patient Tobacco Use Status: Never used Tobacco e-Cigarette/Vaping Use: Never Used Second Hand Smoke Exposure: Yes service: No Current occupational status: retired Cognitive needs: No Hearing needs: No Vision needs: Yes Assessment & Plan Assessment & Plan (1) Hypocalcemia: Code(s): E83.51 - Hypocalcemia Category: Medical Plan: Review non dairy , calcium rich food options and importance of physical activity for bone health Wt: 59 kg est kcal needs as per 25-30 kcal/kg BW: 1500 -1800 est prot need as per 1g/kg bw: 59 kg est fluid needs a per 30 ml/kg BW: 1800 Rec sodium: 4868-0299 mg/d Patient Instructions: Try non dairy yogurt (so delicious dairy free brand) sardines with bone at least 1-2 times a week (in sand, with pasta and add spinach/greens ) Keep active as able calcium recommendation per day 1200 mg/d refer to list of non dairy calcium rich foods keep hydrated by having water, non dairy alternate milk, juices ,soups Coding Level of Care Code Nutr Indiv Subseq (50985) Diagnoses Hypocalcemia E83.51 Time Spent (min) 30
[2024-11-16 14:05] VITALS: BMI 22.5
== END 2024-11-16 11:15 | disposition home or self-care (01) ==
LOC: HO.ENCR 10:10
PROVIDERS: PCP Internal Medicine; Visit Provider Dietitian, Registered
DX: E83.51 Hypocalcemia (principal)

== ENCOUNTER → 2024-11-16 10:10 | Outpatient (BNVA) | payer MEDICARE, OTHER, SELFPAY | PROVIDERS: PCP Internal Medicine; Visit Provider Dietitian, Registered | DX: E83.51 Hypocalcemia (principal); Z71.3 Dietary counseling and surveillance | CPT/HCPCS: 97803 ==

== ENCOUNTER 2025-02-22 10:36 | Outpatient (AMB) | payer MEDICARE, OTHER, SELFPAY ==
--- NOTE | 2025-02-22 10:42 | A.OFFVIS_ITS ---
Vital Signs 02/22/25 10:43 Height 5 ft 4 in Weight 132 lb BMI 22.7 BP 136/64 Blood Pressure Location Rt brachial Position Sitting Pulse 70 Pulse Source Pulse Oximeter Pulse Oximetry (%) 93 Oxygen Delivery Method Room Air Intake Visit Reasons: 3m Intake Note: ESTABLISHED PATIENT for mgmt of IBS, abd pain, hematochezia. Chief Complaint; C.O. chronic sx mgmt. Still experiencing constipation and hematochezia. Not taking senna at this time per frequent diarrhea when taking it. Pt still taking miralax every other day. Patternmaker Wood Required: No Accompanied by: Self / Same As Patient Allergies tramadol (TRAMADOL) Allergy (Severe, Verified 02/22/25 10:48) LETHARGY/VOMITING, nausea, vomiting levofloxacin (From LEVAQUIN) Allergy (Intermediate, Verified 02/22/25 10:48) TENDONITIS metronidazole (From FLAGYL) Allergy (Intermediate, Verified 02/22/25 10:48) NAUSEA, metalic taste, nausea Sulfa (Sulfonamide Antibiotics) (SULFA (SULFONAMIDE ANTIBIOTICS)) Allergy (Intermediate, Verified 02/22/25 10:48) N/V, nausea doxycycline Allergy (Unknown, Verified 02/22/25 10:48) Unknown nitrofurantoin (From Macrobid) Allergy (Verified 02/22/25 10:48) back pain pantoprazole Adverse Reaction (Severe, Verified 02/22/25 10:48) arm throbbing cigarette smoke Allergy (Unknown, Uncoded 02/22/25 10:48) vomitng HPI HPI 3m: Details: LAST VISIT IBS (irritable bowel syndrome) Abdominal pain Acid reflux External hemorrhoid Plan Patient will continue low FODMAP diet. She is following up with keymodule assembly supervisor. Continue avoiding dietary triggers. Patient was encouraged to stay upright for minimum 3 hours after meals. Discouraged patient from eating late at night. Try something light like rice crackers. Patient will try fairlife milk instead of Lactaid milk. Patient will follow low FODMAP diet as we discussed in the past. Stay away from wheat as it caused patient bloating. Patient has list of food that is recommended at home and she will try to follow-up. Patient will take MiraLax as needed. Follow-up in 3 months, sooner on as needed basis. Patient is agreeable to this plan and verbalizes understanding of instructions. She was given the opportunity to ask questions and all questions answered. ? Thank you for allowing me to participate in her care I am sorry for chewing Refilled hydrocortisone 2.5% (Proctosol HC) 1 appl [place] BID-QID PRN 30 grams 2RF hemorrhoids Discontinued famotidine (Pepcid) Discontinued Reason: Patient no longer taking 20 mg PO DAILY 30 tabs 3RF K21.9 TODAY'S VISIT Patient is here today for follow-up. Patient reports that she has been doing well for the most part. Seen keymodule assembly supervisor and was told to stay away from milk and cheese. Patient reports that she has been doing fairly well until about few weeks ago when she started cheating. Patient reports that she started eating food that she is not supposed to. Patient reports that when she was following low FODMAP diet she was doing well. Patient is also admitting to eating jelly filled donuts. Abdominal bloating after. Acid reflux has been suppressed for the most part. Denies dyspepsia, dysphagia or odynophagia. Patient reports that she has been gardening a lot trying to go early in the morning. Reports mucus in her throat and allergy symptoms. Patient used to see terminologist. History of eosinophilia. Occasional blood in his stools when she is constipated. Unable to take senna due to loose stools. Taking MiraLax every other day. [facility] Medical History Eosinophilia Acute rhinosinusitis Bronchitis Rectal prolapse Annual physical exam Chronic cough Asthma Abdominal pain Arthritis Eosinophilia Hyperlipidemia HTN (hypertension) Surgical History (Updated 02/22/25 @ 10:48 by CHELO Aiken) History of left hip replacement History of hip replacement S/P EMILE (total abdominal hysterectomy) H/O colonoscopy Inguinal hernia History of hysterectomy History of rectocele Family History Father Mental health disorder Mother Diabetes mellitus HTN (hypertension) Social History Housing: House Alcohol intake: never Patient Tobacco Use Status: Never used Tobacco e-Cigarette/Vaping Use: Never Used Second Hand Smoke Exposure: Yes service: No Current occupational status: retired Cognitive needs: No Hearing needs: No Vision needs: Yes Review of Systems Const Denies weight gain and Denies weight loss ENT Reports no additional complaints, Denies dysphagia and Denies odynophagia Card Reports no additional complaints Resp Reports no additional complaints GI Denies abdominal pain, Denies belching, Denies melena, Denies bloating, Denies change in bowel habits, Denies dysphagia, Denies excessive flatus, Denies dyspepsia, Denies heartburn, Denies diarrhea, Denies loose stools, Denies nausea, Denies odynophagia and Denies vomiting Musc Reports no additional complaints Neuro Reports no additional complaints Psych Reports no additional complaints Endo Reports no additional complaints Physical Exam Vital Signs: Last Vital Signs Pulse 70 02/22/25 10:43 BP 136/64 02/22/25 10:43 Pulse Ox 93 02/22/25 10:43 Oxygen Delivery Method Room Air 02/22/25 10:43 BMI result Body Mass Index 22.7 Const General: healthy appearing, no acute distress and well developed Nutritional Appearance: well nourished Orientation/consciousness: patient oriented x3 Resp Effort & Inspection: normal respiratory effort, able to speak in complete sentences, no tracheal deviation and symmetric chest movement Auscultation: clear to auscultation bilaterally Cardio Rate: regular rate GI Inspection: Yes normal to inspection and No distended Palpation (GI): Soft to palpation, not firm, nontender and No hepatosplenomegaly present Auscultation: normal bowel sounds Rectal Exam - Female: visual inspection normal, normal sphincter tone and External hemorrhoid(s) present General: Yes no CVA tenderness Back/Spine/Pelvis Back: no CVA tenderness Skin General skin exam: elasticity normal, turgor normal and dry skin Neuro General: patient oriented x3 Psych Appearance: grossly normal Mental Status: mental status grossly normal Affect: Anxious affect present Assessment & Plan Assessment & Plan (1) Acid reflux: Code(s): K21.9 - Gastro-esophageal reflux disease without esophagitis Category: Medical Qualifiers: Esophagitis presence: esophagitis presence not specified Qualified Code(s): K21.9 - Gastro-esophageal reflux disease without esophagitis (2) Other fecal abnormalities: Code(s): R19.5 - Other fecal abnormalities Category: Medical (3) Rectal prolapse: Code(s): K62.3 - Rectal prolapse Category: Medical (4) IBS (irritable bowel syndrome): Code(s): K58.9 - Irritable bowel syndrome, unspecified Category: Medical Qualifiers: Irritable bowel syndrome type: with constipation Qualified Code(s): K58.1 - Irritable bowel syndrome with constipation (5) Abdominal pain: Code(s): R10.9 - Unspecified abdominal pain Category: Medical Qualifiers: Abdominal location: generalized Qualified Code(s): R10.84 - Generalized abdominal pain Plan Long discussion with patient about dietary choices. Patient will try to avoid dietary triggers. Continue following up with the keymodule assembly supervisor. Take MiraLax as needed. Patient will follow-up in 3 months, sooner on as needed basis. Patient reports mucus in her throat history of allergies. Recommended to see immunology and patient does not want to see one. Patient was encouraged to take Flonase and xyzal as she reports that Zyrtec, Shelia and Claritin do not work for her. She is agreeable to this plan and verbalizes understanding of instructions. She was given the opportunity to ask questions and all questions answered. Thank you for allowing me to participate in her care Medications: Discontinued sennosides (Natural Senna Laxative) Discontinued Reason: Doctor's Order 17.2 mg (2 x 8.6 mg) PO BEDTIME 60 tabs 3RF constipation K59.00 - Constipation, unspecified Coding Level of Care Code Est Pt Level 4 (02428) Complex EM visit Add On G2211 Diagnoses Gastroesophageal reflux disease, unspecified whether esophagitis present K21.9 Esophagitis presence: esophagitis presence not specified Other fecal abnormalities R19.5 Rectal prolapse K62.3 Irritable bowel syndrome with constipation K58.1 Irritable bowel syndrome type: with constipation Generalized abdominal pain R10.84 Abdominal location: generalized Time Spent (min) 35 Comment 25 minutes spent with patient and additional 10 minutes spent reviewing her records
[2025-02-22 10:43] VITALS: BP 136/64; PULSE 70; O2SAT 93; BMI 22.7
--- OUTSIDE RECORDS SUMMARY | 2025-02-22 11:49 | XMS_ITS | Patient Health Record ---
[facility] Address [address] [facility] [place] [address] Care Team Providers Care Glassworker Name Role Phone Hiwot Almeida MD Primary Care Provider Unavaila ble Black, Lori Unavailable [phone] Allergies Allergen (clinical drug ingredient) Drug/Non Drug [...] Multivitamin - 1 tablet Orally Once a day; Duration: 30 day(s) Not-Taking PreserVision AREDS 2 Active Polyethylene Glycol 3350 17 GM/SCOOP as directed Orally Not-Takin g Metoprolol Succinate 50 MG 1 capsule Orally Once a day; Duration: 30 day(s) Active Zinc Not-Taking Lisinopril 20 MG 1 tablet Orally Once a day; Duration: 30 day(s) Active Vitamin A Not-Taking Simvastatin 20 MG 1 tablet in the even ing Orally Once a day; Duration: 30 day(s) Active Vitamin C Not-Taking Nightsplint . . . AFO - L1930; Duration: . Active Vitamin E Not-Taking Physical Therapy . . . 2-3x/week; Duration: 3-4 weeks 01/03/2023 Not-Taking Wheat Dextrin - as directed Orally Not-Taking Albuterol Sulfate No t-Taking Social History Tobacco use other than smoking: Question Answer Notes Are you an other tobacco user? No Problems Problem Type SNOMED Code ICD Code Onset Dates Problem Status W/U Status Risk Notes Problem Pronation deformity of left foot (M21.6X2) Active confirmed Plan Of Treatment Pending Test Test Name Order Date X ray : Foot, left 3V 01/03/2023 Insurance Providers Payer Name Payer Address Payer Phone Subscriber Number Group Number Insured Name Patient Relationship to Insured Coverage Start Date Coverage End Date Medicare National Govt Svcs Inc [address] [facility] [place] [address] [id number] Nelia Winkler Self - patient is the insured [facility] [address] [place] [address] [phone] [id number] Nelia Winkler Self - patient is [...]
== END 2025-02-22 11:14 | disposition home or self-care (01) ==
LOC: HO.HGI 10:37
PROVIDERS: PCP Internal Medicine; Visit Provider Nurse Practitioner Family
DX: K21.9 Gastro-esophageal reflux disease without esophagitis (principal); R19.5 Other fecal abnormalities; K62.3 Rectal prolapse; K58.1 Irritable bowel syndrome with constipation; R10.84 Generalized abdominal pain
CPT/HCPCS: 99214; G2211

== ENCOUNTER → 2025-02-22 10:36 | Outpatient (BNVA) | payer MEDICARE, OTHER, SELFPAY | PROVIDERS: PCP Internal Medicine; Visit Provider Nurse Practitioner Family | DX: K58.1 Irritable bowel syndrome with constipation (principal); R10.84 Generalized abdominal pain; K21.9 Gastro-esophageal reflux disease without esophagitis; K62.3 Rectal prolapse; R19.5 Other fecal abnormalities; Z79.899 Other long term (current) drug therapy | CPT/HCPCS: 99212 ==

== ENCOUNTER 2025-05-17 10:06 | Outpatient (AMB) | payer MEDICARE, OTHER, SELFPAY ==
[2025-05-17 10:37] VITALS: BMI 22.9
--- NOTE | 2025-05-17 10:37 | A.OFFVIS_ITS ---
VS Expanded 05/17/25 10:37 Height 5 ft 4 in Weight 133 lb 2.547 oz BMI 22.9 Intake Visit Reasons: hypocalcemia Allergies tramadol (TRAMADOL) Allergy (Severe, Verified 02/22/25 10:48) LETHARGY/VOMITING, nausea, vomiting levofloxacin (From LEVAQUIN) Allergy (Intermediate, Verified 02/22/25 10:48) TENDONITIS metronidazole (From FLAGYL) Allergy (Intermediate, Verified 02/22/25 10:48) NAUSEA, metalic taste, nausea Sulfa (Sulfonamide Antibiotics) (SULFA (SULFONAMIDE ANTIBIOTICS)) Allergy (Intermediate, Verified 02/22/25 10:48) N/V, nausea doxycycline Allergy (Unknown, Verified 02/22/25 10:48) Unknown nitrofurantoin (From Macrobid) Allergy (Verified 02/22/25 10:48) back pain pantoprazole Adverse Reaction (Severe, Verified 02/22/25 10:48) arm throbbing cigarette smoke Allergy (Unknown, Uncoded 02/22/25 10:48) vomitng Nutrition Presentation Details: Pt presents for MNT f/u for hypocalcemia Pt has GI intolerance to dairy related to IBS, Pt reports working on choosing dairy alternatives fortified with Ca reports including nuts, seeds , sometimes dried prunes Notes upset stomach when having bread with butter exercise: [facility] exercises 2 times a week walking at grocery store once/wk food frequency non dairy alternatives: 2 cups /day (almond milk ) fruits: 1/d vex/wk fish: 1/wk PFSH Medical History Eosinophilia Acute rhinosinusitis Bronchitis Rectal prolapse Annual physical exam Chronic cough Asthma Abdominal pain Arthritis Eosinophilia Hyperlipidemia HTN (hypertension) Surgical History (Updated 02/22/25 @ 10:48 by CHELO Aiken) History of left hip replacement History of hip replacement S/P EMILE (total abdominal hysterectomy) H/O colonoscopy Inguinal hernia History of hysterectomy History of rectocele Family History Father Mental health disorder Mother Diabetes mellitus HTN (hypertension) Social History Housing: House Alcohol intake: never Patient Tobacco Use Status: Never used Tobacco e-Cigarette/Vaping Use: Never Used Second Hand Smoke Exposure: Yes service: No Current occupational status: retired Cognitive needs: No Hearing needs: No Vision needs: Yes Assessment & Plan Assessment & Plan (1) Hypocalcemia: Code(s): E83.51 - Hypocalcemia Category: Medical Plan: Review non dairy , calcium rich food options and importance of physical activit y for bone health rec calcium intake 1200mg/d via foods Wt: 59 kg est kcal needs as per 25-30 kcal/kg BW: 1500 -1800 est prot need as per 1g/kg bw: 59 kg est fluid needs a per 30 ml/kg BW: 1800 Rec sodium: 3551-6016 mg/d Patient Instructions: add 1-2 cup of Spinach to your foods at least twice a week Have 3 cup of milk (alternative, almond milk fortified with calcium ) 3 times a day Choose breads dairy free - read food labels/ingredients - see list of options and opt to spread olive oil on bread or choose non dairy butter choices (see list of options) Coding Level of Care Code Nutr Indiv Subseq (69923) Diagnoses Hypocalcemia E83.51 Time Spent (min) 30
--- OUTSIDE RECORDS SUMMARY | 2025-05-17 12:14 | XMS_ITS | Clinical Summary ---
Author Organization [facility] Address [address] [place], [place] [id number] Phone Care Team Providers Care Customer Assistant Name Role Phone Sharmin Cruz Primary Care Provider Allergies Active Allergy Reactions Criticality Noted Date Comments Codeine Dizziness,Nausea and /or Vomiting 04/02/2024 Doxycycline Unknown 04/02/2024 Levofloxacin Unknown,Nausea and/o r Vomiting 04/02/2024 Metronidazole Nausea and/or Vomiting,Unknown 04/02/2024 Metronidazole Benzoate Nausea and/or Vomiting 0 04/02/2024 Milk Containing Products (Dairy) 04/02/2024 Nitrofurantoin Unknown 04/02/2024 Sulfa (Sulfonamide Antibiotics) GI Upset,Nausea Only 04/02/2024 Tramadol Nausea and/or Vomiting 04/02/2024 Medications albuterol 90 mcg/actuation inhaler INHALE 2 PUFFS BY MOUTH EVERY 4 TO 6 HOURSAS NEEDED FOR WHEEZING 4 Active metoprolol succinate (TOPROL-XL) 50 MG 24 hr tablet Take 1 tablet by mouth every morning. 4 Active simvastatin (ZOCOR) 20 MG tablet Take 20 mg by mouth nightly at bedtime. at bedtime. 4 Active DOCUSATE SODIUM ORAL Take by mouth daily. Active polyethylene glycol (MIRALAX) 17 gram/dose powder Take 17 g by mouth daily. Active calcium carbonate-vitami n D3 1,250 mg (500 mg elemental)-400 units per tablet Take 1 tablet by mouth daily. Active cetirizine (ZYRTEC) 10 MG tablet Take 10 mg by mouth daily. Active hydrocortisone (ANUSOL-HC) 2.5 % rectal cream APPLY RECTALLY 2 TO 4 TIMES A DAY NEEDED FOR HEMORRHOIDS 4 Active senna (SENOKOT) 8.6 mg tablet Take 8.6 mg by mouth daily. 5 Active lisinopril (PRINIVIL,ZESTRI L) 20 MG tablet Take 1 tablet (20 mg total) by mouth 2 (two) times a day. 180 tablet 3 5 Active hydroCHLOROthiaz melina 12.5 MG tabletIndication s:Benign essential hypertension TAKE 1 TABLET BY MOUTH EVERY DAY 90 tablet 1 5 Active Active Problems Problem Noted Date Diagnosed Date S/P hip replacement 02/14/2025 Assessment & Plan (02/14/2025 5:06 PM EDT): Two months post-surgery, experiencing typical recovery symptoms like difficulty walking at night and stiffness after sitting. Completed physical therapy. - Attend follow-up appointment with surgeon in March. Memory change 08/06/2024 Assessment & Plan (08/06/2024 2:02 PM EST): Daughter has some concerns about memory changes. I have noticed some lapses with patient as well. Will do further memory testing when patient returns in one month, hopefully daughter can join. Encounter for annual wellness visit 07/08/2024 Assessment & Plan (07/08/2024 2:44 PM EST): This is a 83 y.o. female who presents for a complete physical exam. Past medical history, surgical history, social history, family history and allergies reviewed and document in chart. -Blood pressure taken, no signs of hypertension. -General health screening appropriate for age reviewed -General nutrition recommendations reviewed: 5 servings of fruits and vegetables, adequate protein. -Exercise recommendations reviewed: 150 minutes of cardiovascular exercise weekly. At least two strength training sessions weekly for muscle mass and bone health. -Breast cancer screening discussed: Last mammogram: Around 70 years old. Result: normal. Any abnormal hx: no. No further screening. -Colon cancer screening discussed: Last colonoscopy: 7-8 years ago. Result: normal. Any abnormal hx: had high risk polyps in the past, was having twice yearly colonoscopies. Sees GI. Seems like no further screening. -Cervical cancer screening discussed: History of cervical cancer. S/p total hysterectomy. Last screening was around 65. No further screening. -Smoking cessation: NA -Lung Cancer Screening: NA -Abdominal Aortic Aneurysm: NA -Osteoporosis screening discussed: Last DEXA: Unsure. Result: unsure. Any abnormal hx: no. -Prediabetes and Type 2 Diabetes Screening: Ordered -Hyperlipidemia screening: Ordered -STI screening: Declined -One lifetime HIV and Hep C test: Negative -IPV screen: negative -PHQ2: 0, GAD7: 0 -Immunizations reviewed: Due for COVID- declines, shingles- will get, TDAP- will get. -Labs as ordered -Regular vision and dental exams recommended: UTD -Dermatology/sunscreen: Wears sun protection regularly. -Calcium with Vitamin D recommendations reviewed: 800 international units of vitamin D daily and 1200 mg elemental calcium in post menopausal women -Annual physical exam recommended GERD without esophagitis 04/02/2024 Assessment & Plan (04/02/2024 1:53 PM EDT): Chronic reflux. Tried omeprazole and famotidine which both made her feel poorly. Has never had an endoscopy. Sees GI at [facility], next visit in the fall. Benign essential hypertension 04/02/2024 Assessment & Plan (02/14/2025 5:07 PM EDT): Blood pressure low during visit. Vomiting after lisinopril and metoprolol may affect control. Advised on missed dose protocol and after-hours call service. - Monitor blood pressure regularly. - Advised can call us for advice or utilize after-hours call service for medication guidance if vomiting recurs. Assessment & Plan (09/07/2024 1:59 PM EST): Stable. Continue lisinopril 20mg daily BID, metoprolol 50mg daily, HCTZ at 12.5mg daily. Patient to continue monitoring her BP at home. Discussed if blood pressure drops below 110/60 on a regular basis she should let me know and we will make some changes to her medications. Assessment & Plan (08/06/2024 2:03 PM EST): Blood pressure elevated again today. Cuff calibrated. Will add HCTZ 12.5mg daily. Follow up in 1 month. Assessment & Plan (07/08/2024 3:08 PM EST): Blood pressure again elevated today. Thinks she might have forgotten to take her pills yesterday. Will have her keep taking her blood pressures at home, come up with a way to remember her pills. Will follow up in 1 month with cuff and record. Assessment & Plan (04/02/2024 2:11 PM EDT): Taking lisinopril 20mg daily BID, metoprolol 50mg daily. Eats a fair amount of sodium. Doesn't take her blood pressure regularly at home though she has a cuff. I would like to get her off of the metoprolol eventually. Clearly needs another blood pressure medication. Will add HCTZ at 12.5mg daily, follow up in 2 weeks. Wheezing 04/02/2024 Assessment & Plan (04/02/2024 1:59 PM EDT): Patient reports wheezing, SOB, chronic cough, phlegm. Saw pulmonology through [facility] and went through what sounds like pulmonary function testing. Seems she was told she has allergies and at times asthma, high eosinophils. Takes cetirizine. Was prescribed montelukast but didn't want to take due to fears of SI. Has an albuterol inhaler. Sees pulmonology at [facility]. Irritable bowel syndrome with constipation 04/02 Assessment & Plan (09/07/2024 1:44 PM EST): [place] [facility] [place] unhappy with provider. Would like to switch. Assessment & Plan (04/02/2024 1:56 PM EDT): R sided abdominal pain, constipation. Uses Colace, Miralax. Had a CT that showed constipation. Sees GI at [facility]. Put on a low FODMAP diet. Has taken a probiotic. Other hyperlipidemia 04/02/2024 Assessment & Plan (04/02/2024 2:01 PM EDT): Takes simvastatin 40mg daily. Last lipid panel was 4 months ago. Osteoarthritis 04/02/2024 History of cervical cancer 04/02/2024 Assessment & Plan (07/08/2024 2:08 PM EST): At around 37 years old. Had a total hysterectomy. Resolved Problems Problem Noted Date Diagnosed Date Resolved Date Bronchitis 04/02/2024 04/02/2024 Constipation in female 04/02/202404/02 Pelvic organ prolapse quanti fication stage 3 rectocele 04/02/2024 04/02/2024 Encounters Date Type Department Care Team Description 04/07/[address] [place] [address] Sharmin Cruz Medication Refill 03/10/[address] [place] [address] Vinicio Salazar MA Medication Refill (Pt LVM for med refill) 02/14/2025 1:30 PM EDT Office Visit [address] [place] [address] Sharmin Cruz Status post hip replacement, unspecified laterality; Benign essential hypertension; Abnormal fasting glucose; Other hyperlipidemia from Last 3 Months Immunizations Immunization Administration Dates Next Due Influenza High-Dose Quadrivalent Preservative Fr ee IM 06/13/2022 Influenza High-Dose Trivalent Preservative Free IM 05/09/2016 Influenza Quadrivalent Adjuvanted Preservative F ree IM 08/23/2021,05/05/2020 Influenza Recombinant Trivalent Preservative Colt e IM 05/18/2024 Influenza Trivalent Adjuvanted Preservative free IM 05/13/2023,06/03/2019 Pneumococcal conjugate PCV20 06/13/2022 RSV Vaccine (bivalent) 06/24/2024 Family History Medical History Relation Comments Prostate cancer Brother Congenital heart disease Daughter 1 Osteoarthritis Daughter 2 Cervical cancer Daughter 3 Osteoarthritis Father Schizophrenia Father Heart disease Mother Stroke Mother Alcohol use disorder Son 1 Kidney failure Son 1 Pneumonia Son 1 Hypertension Son 2 Relation Status Comments Brother Alive Daughter 1 Alive Daughter 2 Alive Daughter 3 Alive Father Mother Son 1 Son 2 Alive Social History Tobacco Use Types Packs/Day Years Used Date Smoking Tobacco: Never Passive Smoke Exposure: Never Smokeless Tobacco: Never Alcohol Use Standard Drinks/Week Comments Yes 0 (1 standard drink = 0.6 oz pur e alcohol) Beer a couple of times a week Child or Family Care Answer Date Record ed Do you have problems with on e of the following making it difficult for you to work, study, or receive health care? No 04/02/2024 Education Answer Date Recorded Are you interested in more education? Not on cyndy e 01/20/2024 Are you concerned about learning? Not on file 01/20/2024 No 01/20/2024 No 01/20/2024 Food Answer Date Recorded Within the past 6 months we worried whether our food would run out before we got money to buy more. Never True 04/02/2024 Within the past 6 months the food we bought just didn't last and we didn't have enough money to get more. Never True Residential Stability Answer Date Recor ded What is your housing situation today? I choose n ot to answer 04/02/2024 How many times have you move d in the past 12 months? Zero (I did not move) 04/02/2024 Paying for Meds Answer Date Recorded Do you have trouble paying for medicines? No 04/02/2024 Paying Utility Bills Answer Date Record ed Do you have trouble paying your heating or elect ricity bill? No 04/02/2024 Transportation Answer Date Recorded Has the lack of transportati on kept you from medical appointments or from getting medications? No 04/02/2024 Digital Access Answer Date Recorded No 04/02/2024 Yes 04/02/2024 Do you have reliable internet access at home? Ye s 04/02/2024 Do you have a device (e.g., phone, tablet, computer) with a working camera? Yes 04/02/2024 Intimate Partner Violence Answer Date R ecorded Denied Basic Needs Not on file 07/08/2024 In the past 12 months have y ou been in a relationship with a person who hurts, threatens, or tries to control you? No 07/08/2024 Worried food would run out Not on file 07/08 In the past 12 months have y ou been in a relationship with a person who hurts, threatens, or tries to control you? No 07/08/2024 Comments Unknown Sex and Gender Information Value Date Recorded Sex Assigned at Not on file Legal Sex Female 2:09 PM EDT Gender Identity Not on file Sexual Orientation Not on file Last Filed Vital Signs Vital Sign Reading Time Taken Comments Blood Pressure 110/60 02/14/2025 1:31 PM EDT Pulse 76 02/14/2025 1:31 PM EDT Temperature 36.8 C (98.3 F) 02/14/2025 1:31 PM EDT Respiratory Rate - - Oxygen Saturation 97% 02/14/2025 1:31 PM EDT Inhaled Oxygen Concentration - - Weight 60 kg (132 lb 3.2 oz) 02/14/2025 1:31 PM EDT Height 162.4 cm (5' 3.94 ) 09/07/2024 1:12 PM ES T Body Mass Index 22.74 09/07/2024 1:12 PM EST Plan of Treatment Upcoming Encounters Date Type Department Care Team (Late st Contact Info) Description 07/08/2025 10:00 AM EST Office Visit [facility] [address] [place] [address] [place] [address] Sharmin Cruz [address] [facility] [place] [address] [email or web address] Health Maintenance Due Date Last Done Comments Adult Td,Tdap Booster 1940 ZOSTER VACCINES (1 of 2) 1990 OSTEOPOROSIS SCREENING INITIAL (ONE-TIME) 2005 COVID-19 VACCINE ( season) 2024 06/13/2021, 10/15/2020, 09/24/2020 INFLUENZA VACCINE (#1) 2025 , 05/13/2023, 06/13/2022, Additional history exists CREATININE LEVEL 07/08/2025 07/08/2024 DEPRESSION SCREENING 07/08/2025 07/08/2024 POTASSIUM LEVEL 07/08/2025 07/08/2024 BLOOD PRESSURE 08/16/2025 02/14/2025 PNEUMOCOCCAL VACCINES (50+ years) Completed 06/13/2022 RSV VACCINE Completed 06/24/2024 HEPATITIS A VACCINES Aged Out No long er eligible based on patient's age to complete this topic HIB VACCINES Aged Out No longer eligi ble based on patient's age to complete this topic MENINGOCOCCAL VACCINES (ACWY) Aged Out No longer eligible based on patient's age to complete this topic MENINGOCOCCAL VACCINES (B) Aged Out N o longer eligible based on patient's age to complete this topic Medical Devices Not on file Procedures Procedure Name Priority Date/Time Associated Diagnosis Comments COMPREHENSIVE METABOLIC PANEL Routine 07/08/2024 3:22 PM EST Encounter for annual wellness visit Other hyperlipidemia from Last 3 Months or Most Recently Relevant to Health Maintenance Results * (ABNORMAL) Comprehensive metabolic panel (07/08/2024 3:22 PM EST) SODIUM 139 133 - 146 mmol/L [facility] POTASSIUM 4.1 3.3 - 5.1 mmol/L [facility] CHLORIDE 102 96 - 108 mmol/L [facility] CO2 26 21 - 35 mmol/L [facility] BUN 18 6 - 19 mg/dL [facility] CREATININE 0.80 0.5 - 1.5 mg/dL [facility] GLUCOSE 105(H) 70 - 99 mg/dL [facility] ALBUMIN 4.5 3.9 - 4.8 g/dL [facility] TOTAL PROTEIN 7.4 6.5 - 8.0 g/dL [facility] CALCIUM 10.3 8.4 - 10.3 mg/dL [facility] ALKALINE PHOSPHATASE 109 39 - 117 U/L [facility] TOTAL BILIRUBIN 0.3 0.0 - 1.2 mg/dL [facility] AST 24 0 - 37 U/L [facility] ALT 14 0 - 40 U/L [facility] GLOBULIN 2.9 1 - 4.8 g/dL [facility] EGFR 73 >59 mL/min/1.7 3m2 [facility] Comment:Estimated glomerular filtration rate calculated using the CKD-EPI refit equation. ANION GAP 15 10 - 20 mmol/L [facility] Blood 07/08/2024 3:22 PM EST 07/08/2024 3:28 PM EST Sharmin Cruz LAB BLOOD ORDERABLES Final Result Performing Organization Address City/State/[facility] Co de Phone Number [facility] [address] [place] [address] from Last 3 Months or Most Recently Relevant to Health Maintenance Insurance [place] [id number] [facility] MEDICARE SUPPLEMENT MEDICARE PART A & B Member Subscriber Plan / Payer (Ef fective 2005-Present) Name:Nelia Mayfield Member ID:[id number] Relation to Subscriber:Self Name:Nelia Mayfield Subscriber ID:[id number] Payer ID:[id number] Group ID:Not on file Type:Medicare Address: [employer] [address] MEDICARE SUPPLEMENT MEDICARE PART A & B [facility] MEDICARE SUPPLEMENT MEDICARE PART A & B MEDICARE SUPPLEMENT MEDICARE PART A & B MEDICARE SUPPLEMENT MEDICARE PART A & B [facility] MEDICARE SUPPLEMENT MEDICARE PART A & B [facility] MEDICARE SUPPLEMENT MEDICARE PART A & B MEDICARE SUPPLEMENT MEDICARE PART A & B MEDICARE SUPPLEMENT Care Teams Customer Assistant Relationship Specialty Start Date End Date Sharmin Cruz [address] [place] [address], [address] [place] [address] [email or web address] PCP - General Family Medicine 04/02/24 Additional Source Comments The information contained in this document represents components of the legal health record. It is not the complete legal health record.[facility]
--- OUTSIDE RECORDS SUMMARY | 2025-05-17 12:14 | XMS_ITS | Patient Health Record ---
[facility] Address [address] [facility] [address] Care Team Providers Care Suppression Crew Leader Name Role Phone Hiwot Almeida MD Primary Care Provider Unavaila ble Black, Lori Unavailable [phone] Allergies Allergen (clinical drug ingredient) Drug/Non Drug [...] [employer] [address] [facility] [address] [id number] Nelia Winkler Self - patient is the insured [facility] [address] [place] [address] [phone] [id number] Nelia Winkler Self - patient is [...]
== END 2025-05-17 10:59 | disposition home or self-care (01) ==
LOC: HO.ENCR 10:07
PROVIDERS: PCP Internal Medicine; Visit Provider Dietitian, Registered
DX: E83.51 Hypocalcemia (principal)

== ENCOUNTER → 2025-05-17 10:06 | Outpatient (BNVA) | payer MEDICARE, OTHER, SELFPAY | PROVIDERS: PCP Internal Medicine; Visit Provider Dietitian, Registered | DX: E83.51 Hypocalcemia (principal); Z71.3 Dietary counseling and surveillance | CPT/HCPCS: 97803 ==

== ENCOUNTER 2025-08-12 10:38 | Outpatient (AMB) | payer MEDICARE, OTHER, SELFPAY ==
--- NOTE | 2025-08-12 10:50 | A.OFFVIS_ITS ---
Vital Signs 08/12/25 10:52 Height 5 ft 4 in Weight 130 lb 1.164 oz BMI 22.3 BP 125/65 Blood Pressure Location Lt brachial Pulse 67 Intake Visit Reasons: 3 m IBS Intake Note: Nelia presents in the office as a 3 month follow up for her IBS. CC: she states that she has been dong a lot better. Screener And Blender Operator Required: No Allergies tramadol (TRAMADOL) Allergy (Severe, Verified 08/12/25 10:52) LETHARGY/VOMITING, nausea, vomiting levofloxacin (From LEVAQUIN) Allergy (Intermediate, Verified 08/12/25 10:52) TENDONITIS metronidazole (From FLAGYL) Allergy (Intermediate, Verified 08/12/25 10:52) NAUSEA, metalic taste, nausea Sulfa (Sulfonamide Antibiotics) (SULFA (SULFONAMIDE ANTIBIOTICS)) Allergy (Intermediate, Verified 08/12/25 10:52) N/V, nausea doxycycline Allergy (Unknown, Verified 08/12/25 10:52) Unknown nitrofurantoin (From Macrobid) Allergy (Verified 08/12/25 10:52) back pain pantoprazole Adverse Reaction (Severe, Verified 08/12/25 10:52) arm throbbing cigarette smoke Allergy (Unknown, Uncoded 08/12/25 10:52) vomitng HPI HPI 3 m IBS: Details: LAST VISIT Acid reflux Other fecal abnormalities Rectal prolapse IBS (irritable bowel syndrome) Abdominal pain Plan Long discussion with patient about dietary choices. Patient will try to avoid dietary triggers. Continue following up with the accredited pharmacy technician. Take MiraLax as needed. Patient will follow-up in 3 months, sooner on as needed basis. Patient reports mucus in her throat history of allergies. Recommended to see immunology and patient does not want to see one. Patient was encouraged to take Flonase and xyzal as she reports that Zyrtec, Shelia and Claritin do not work for her. She is agreeable to this plan and verbalizes understanding of instructions. She was given the opportunity to ask questions and all questions answered. ? Thank you for allowing me to participate in her care Discontinued sennosides (Natural Senna Laxative) Discontinued Reason: Doctor's Order 17.2 mg (2 x 8.6 mg) PO BEDTIME 60 tabs 3RF constipation K59.00 TODAY'S VISIT: Patient is here today for follow-up. Patient reports that she has been doing better. She does admit that she will have abdominal pain, cramping and bloating if she eats something that she is not supposed to. Patient admits that she labs food very much enjoys eating out. However patient states that sometimes her choices are not what she should be eating. Patient is being better about taking food that is healthy. Patient is little stressed with the health of her children. We have discuss that stress sometimes can manifest GI symptoms like abdominal cramping constipation or even diarrhea. Patient reports that she has been referred to glueline worker, states that Zyrtec does not help anymore. Patient has not tried Xyzal yet to see if would help. Patient does admit that she is allergic to so many things and frequently gets rhinitis. Recently patient reports that she tried different face cream and experienced epiphora and had to stop using the cream. She is also seeing evaporator supervisor. Patient changed her PCP and is seeing someone in [place] in integrative medicine [facility] Medical History Eosinophilia Acute rhinosinusitis Bronchitis Rectal prolapse Annual physical exam Chronic cough Asthma Abdominal pain Arthritis Eosinophilia Hyperlipidemia HTN (hypertension) Surgical History History of left hip replacement History of hip replacement S/P EMILE (total abdominal hysterectomy) H/O colonoscopy Inguinal hernia History of hysterectomy History of rectocele Family History Father Mental health disorder Mother Diabetes mellitus HTN (hypertension) Social History Housing: House Alcohol intake: never Patient Tobacco Use Status: Never used Tobacco e-Cigarette/Vaping Use: Never Used Second Hand Smoke Exposure: Yes service: No Current occupational status: retired Cognitive needs: No Hearing needs: No Vision needs: Yes Review of Systems Const Denies weight gain and Denies weight loss ENT Reports no additional complaints, Denies dysphagia and Denies odynophagia Card Reports no additional complaints Resp Reports no additional complaints GI Denies abdominal pain, Denies belching, Denies melena, Denies bloating, Denies change in bowel habits, Denies dysphagia, Denies excessive flatus, Denies dyspepsia, Denies heartburn, Denies diarrhea, Denies loose stools, Denies nausea, Denies odynophagia and Denies vomiting Musc Reports no additional complaints Neuro Reports no additional complaints Psych Reports no additional complaints Endo Reports no additional complaints Physical Exam Vital Signs: Last Vital Signs Pulse 67 08/12/25 10:52 BP 125/65 08/12/25 10:52 BMI result Body Mass Index 22.3 Const General: healthy appearing, no acute distress and well developed Nutritional Appearance: well nourished Orientation/consciousness: patient oriented x3 Resp Effort & Inspection: normal respiratory effort, able to speak in complete sentences, no tracheal deviation and symmetric chest movement Auscultation: clear to auscultation bilaterally Cardio Rate: regular rate GI Inspection: Yes normal to inspection and No distended Palpation (GI): Soft to palpation, not firm, nontender and No hepatosplenomegaly present Auscultation: normal bowel sounds Rectal Exam - Female: visual inspection normal, normal sphincter tone and External hemorrhoid(s) present General: Yes no CVA tenderness Back/Spine/Pelvis Back: no CVA tenderness Skin General skin exam: elasticity normal, turgor normal and dry skin Neuro General: patient oriented x3 Psych Appearance: grossly normal Mental Status: mental status grossly normal Affect: Anxious affect present Assessment & Plan Assessment & Plan (1) IBS (irritable bowel syndrome): Code(s): K58.9 - Irritable bowel syndrome, unspecified Category: Medical Qualifiers: Irritable bowel syndrome type: with constipation Qualified Code(s): K58.1 - Irritable bowel syndrome with constipation (2) Abdominal pain: Code(s): R10.9 - Unspecified abdominal pain Category: Medical Qualifiers: Abdominal location: generalized Qualified Code(s): R10.84 - Generalized abdominal pain (3) Acid reflux: Code(s): K21.9 - Gastro-esophageal reflux disease without esophagitis Category: Medical Qualifiers: Esophagitis presence: esophagitis presence not specified Qualified Code(s): K21.9 - Gastro-esophageal reflux disease without esophagitis (4) Other fecal abnormalities: Code(s): R19.5 - Other fecal abnormalities Category: Medical Plan Long discussion with patient about dietary triggers and trying to reduce stress. Patient will continue taking MiraLax as needed. She is encouraged to try Xyzol to see if it will help with her allergies. Patient is requesting Proctosol for hemorrhoids even though patient reports that they are infrequent. Increase fiber, water intake and activity to promote bowel motility. Avoid greasy food and food that patient is aware is provoking symptoms. She will return in 6 months. Patient was encouraged to call our office if she will have any GI concerning symptoms. Patient is agreeable to this plan and verbalizes understanding of instructions. She was given the opportunity to ask questions and all questions answered. Thank you for allowing me to participate in her care Medications: Refilled hydrocortisone 2.5% (Proctosol HC) 1 appl [place] BID-QID PRN 30 grams 2RF hemorrhoids Coding Level of Care Code Est Pt Level 3 (13678) Diagnoses Irritable bowel syndrome with constipation K58.1 Irritable bowel syndrome type: with constipation Generalized abdominal pain R10.84 Abdominal location: generalized Gastroesophageal reflux disease, unspecified whether esophagitis present K21.9 Esophagitis presence: esophagitis presence not specified Other fecal abnormalities R19.5 Time Spent (min) 30 Comment 20 minutes spent with patient and additional 10 minutes spent reviewing her records
[2025-08-12 10:52] VITALS: BP 125/65; PULSE 67; BMI 22.3
--- OUTSIDE RECORDS SUMMARY | 2025-08-12 12:19 | XMS_ITS | Encounter Summary ---
Author Organization [facility] Address [address] [place] [address] Phone Care Team Providers Care Fondant Cooker Name Role Phone Sharmin Cruz Primary Care Provider Encounter Details Date Type Department Care Team (Late st Contact Info) Description 07/07/2025 Orders Only [facility] [address] [place] [address] Sharmin Cruz [address] [facility] [place] [address] [email or web address] Other hyperlipidemia; Abnormal fasting glucose Social History Tobacco Use Types Packs/Day Years [...] ecorded Denied Basic Needs Not on file 07/01/2025 In the past 12 months have y ou been in a relationship with a person who hurts, threatens, or tries to control you? No 07/01/2025 Worried food would run out Not on file 07/01 In the past 12 months have y ou been in a relationship with a person who hurts, threatens, or tries to control you? No 07/01/2025 Comments Unknown Sex and Gender Information Value Date Recorded Sex Assigned at Not on file Legal Sex Female 2:09 PM EDT Gender Identity Not on file Sexual Orientation Not on file documented as of this encounter Plan of Treatment Upcoming Encounters Date Type Department Care Team (Late st Contact Info) Description 01/05/2026 11:00 AM EDT Office Visit [facility] [address] [place] [address] Sharmin Cruz [address] [address], [address] [place] [address] [email or web address] 12/01/2026 10:00 AM EDT Office Visit [facility] [address] [place] [address] Sharmin Cruz [address] [facility] [place] [address] [email or web address] documented as of this encounter Procedures Procedure Name Priority Date/Time Associated Diagnosis Comments HEMOGLOBIN A1C Routine 07/06/2025 3:30 PM EST Abnormal fasting glucose LIPID PANEL Routine 07/06/2025 3:30 PM EST Other hyperlipidemia COMPREHENSIVE METABOLIC PANEL (CMP) Routine 07/06/2025 3:30 PM EST Other hyperlipidemia documented in this encounter Results * Hemoglobin A1c (07/06/2025 3:30 PM EST) Blood (Blood) Functional Neuromodulation LAB BLOOD BKR ORDERABLES Fi nal Result Performing Organization Address [facility] Co de Phone Number [address] [address] * Lipid Panel (07/06/2025 3:30 PM EST) Blood (Blood) Sharmin Tocagen LAB BLOOD BKR ORDERABLES Fi nal Result Performing Organization Address City/[facility]/ZIP Co de Phone Number [address] [address] * Comprehensive Metabolic Panel (CMP) (07/06/2025 3:30 PM EST) Blood (Blood) Functional Neuromodulation LAB BLOOD BKR ORDERABLES Fi nal Result Performing Organization Address [facility] Co de Phone Number [address] [address] documented in this encounter Visit Diagnoses Diagnosis Other hyperlipidemia Abnormal fasting glucose documented in this encounter Additional Health Concerns Assessment Noted Time PHQ-2 Depression Total Score: 0 07/01/20 25 3:41 PM EST documented as of this encounter Care Teams Fondant Cooker Relationship Specialty Start Date End Date Sharmin Cruz [address] [address], [address] [place] [address] [email or web address] PCP - General Family Medicine 04/02/24 documented as of this encounter Additional Source Comments The information contained in this document represents components of the legal health record. It is not the complete legal health record.[facility]
--- OUTSIDE RECORDS SUMMARY | 2025-08-12 12:19 | XMS_ITS | Patient Health Record ---
Author Organization [facility] Address [address] [facility] [place] [address] Care Team Providers Care Ledge Man Name Role Phone Hiwot Almeida MD Primary Care Provider Unavaila ble Black, Lori Unavailable [phone] Allergies Allergen (clinical drug ingredient) Drug/Non Drug [...] [employer] [address] [facility] [place] [address] [id number] Nelia Winkler Self - patient is the insured [facility] [address] [place] [address] [phone] [id number] Nelia Winkler Self - patient is [...]
--- OUTSIDE RECORDS SUMMARY | 2025-08-12 12:20 | XMS_ITS | Clinical Summary ---
Author Organization [facility] Address [address] [place], [place] [id number] Phone Care Team Providers Care Continuity Person Name Role Phone Sharmin Cruz Primary Care [...] tablet by mouth every morning. 4 Active DOCUSATE SODIUM ORAL Take by [...] EVERY DAY 90 tablet 1 5 Active simvastatin (ZOCOR) 20 MG tablet Take 1 tablet (20 mg total) by mouth nightly at bedtime. at bedtime. 90 tablet 3 5 Active Active Problems Problem Noted Date Diagnosed Date Eye irritation 07/08/2025 Assessment & Plan (07/08/2025 12:50 PM EST): Intermittent eye irritation and watery eyes, possibly allergy-related. - Consider Zyrtec as needed. - Consult eye doctor for new grittiness symptoms. S/P hip replacement 02/14/2025 Assessment & Plan [...] annual wellness visit 07/08/2024 Assessment & Plan (07/08/2025 11:03 AM EST): This is a 84 y.o. female who presents for a complete physical exam. Past medical history, surgical history, social history, family history and allergies reviewed and document in chart. -Blood pressure taken and reviewed. -General health screening appropriate for age reviewed [...] Unsure. Result: unsure. Any abnormal hx: no. Declines. 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 -Prediabetes and Type 2 Diabetes Screenin.7% -Hyperlipidemia screening: Good LDL, low HDL. -STI screening: Declined -One lifetime HIV and Hep C test: Negative -IPV screen: negative -PHQ2: 0, GAD7: 0 -ADLS: No limitations -Immunizations reviewed: Due for shingles- has had first shot per patient, covid- declines- had a severe reaction, tetanus- will get. -Labs as ordered -Regular vision and dental exams recommended: UTD with vision exam, needs dental exam. -Calcium with Vitamin D recommendations reviewed: 800 international units of vitamin D daily and 1200 mg elemental calcium in post menopausal women -Living will/MOLST/HCP: HCP is daughter Freda -Annual physical exam recommended Assessment & Plan (07/08/2024 2:44 PM EST): [...] never had an endoscopy. Sees GI at [facility], next visit in the fall. Benign essential [...] SOB, chronic cough, phlegm. Saw pulmonology through [facility] and went through what sounds like pulmonary function testing. Seems she was told she has allergies and at times asthma, high eosinophils. Takes cetirizine. Was prescribed montelukast but didn't want to take due to fears of SI. Has an albuterol inhaler. Sees pulmonology at [facility]. Irritable bowel syndrome with constipation 04/02 Assessment & Plan (09/07/2024 1:44 PM EST): Sees gastroenterology at [facility] but is unhappy with provider. Would like to switch. Assessment & Plan (04/02/2024 1:56 PM EDT): R sided abdominal pain, constipation. Uses Colace, Miralax. Had a CT that showed constipation. Sees GI at [facility]. Put on a low FODMAP diet. [...] Encounters Date Type Department Care Team Description 07/08/2025 10:00 AM EST Office Visit [address] [place] [address] Sharmin Cruz Encounter for annual wellness visit; Eye irritation 07/07/2025 Orders Only [address] [place] [address] Sharmin Cruz Other hyperlipidemia; Abnormal fasting glucose 07/04/[address] [place] [address] Sharmin Cruz 06/02/[address] [place] [address] Sharmin Cruz Forms & Paperwork (Fax annual labs) from Last 3 Months Immunizations Immunization Administration Dates Next Due Influenza High-Dose Quadrivalent Preservative Fr ee IM 06/13/2022 Influenza High-Dose Trivalent Preservative Free IM 05/17/2025,05/09/2016 Influenza Quadrivalent Adjuvanted Preservative F ree IM [...] Sign Reading Time Taken Comments Blood Pressure 138/70 07/08/2025 10:01 AM EST Pulse 67 07/08/2025 10:01 AM EST Temperature 36.7 C (98 F) 07/08/2025 10:01 AM EST Respiratory Rate - - Oxygen Saturation 97% 07/08/2025 10:01 AM EST Inhaled Oxygen Concentration - - Weight 61 kg (134 lb 6.4 oz) 07/08/2025 10:01 AM EST Height 162.4 cm (5' 3.94 ) 09/07/2024 1:12 PM ES T Body Mass Index 23.12 09/07/2024 1:12 PM EST Plan of Treatment Upcoming Encounters Date Type Department Care Team (Late st Contact Info) Description 01/05/2026 11:00 AM EDT Office Visit [facility] [address] [place] [address] [place] [address] Sharmin Cruz [address] [place] [address], [address] [place] [address] [email or web address] 12/01/2026 10:00 AM EDT Office Visit [facility] [address] [place] [address] Sharmin Cruz [address] [place] [address], [address] [place] [address] [email or web address] Health Maintenance Due Date Last Done Comments Adult Td,Tdap Booster 1940 ZOSTER VACCINES (1 of 2) 1990 COVID-19 VACCINE ( season) 2025 06/13/2021, 10/15/2020, 09/24/2020 BLOOD PRESSURE 01/05/2026 07/08/2025 POTASSIUM LEVEL 06/05/2026 06/05/2025, 07/08/2024 DEPRESSION SCREENING 07/01/2026 07/01/2025 CREATININE LEVEL 07/06/2026 07/06/2025, 07/08/2024 OSTEOPOROSIS SCREENING INITIAL (ONE-TIME) 07/07/2026 Postponed from 2005 (Patient Declines / Guardian Declines) PNEUMOCOCCAL VACCINES (50+ years) Completed 06/13/2022 RSV VACCINE Completed 06/24/2024 INFLUENZA VACCINE Completed 05/17/2025, , 05/13/2023, Additional history exists HEPATITIS A VACCINES Aged Out No long [...] Routine 07/06/2025 3:30 PM EST Other hyperlipidemia OUTSIDE POTASSIUM LEVEL Routine 06/05/2025 from Last 3 Months Results * Hemoglobin A1c (07/06/2025 3:30 PM EST) Blood (Blood) us Sharmin Cruz LAB BLOOD BKR ORDERABLES Fi nal Result Performing Organization Address [facility]/ZIP Co de Phone Number [address] [address] * Lipid Panel (07/06/2025 3:30 PM EST) Blood (Blood) [facility] LAB BLOOD BKR ORDERABLES Fi nal Result Performing Organization Address [facility]/ZIP Co de Phone Number [address] [address] * Comprehensive Metabolic Panel (CMP) (07/06/2025 3:30 PM EST) Blood (Blood) [facility] LAB BLOOD BKR ORDERABLES Fi nal Result Performing Organization Address [facility] Co de Phone Number [address] [address] * Outside Potassium Level (06/05/2025) Potassium level - External 4.3 3.4 - 5.0 mmol/L Historical Provider LAB BLOOD ORDERABLES Dary l Result from Last 3 Months Insurance MEDICARE PART A & B [facility] MEDICARE SUPPLEMENT MEDICARE PART A & B Member Subscriber Plan / Payer ( fective 2005-) Name:Nelia Mayfield Member ID:[id number] Relation to Subscriber:Self Name:MayfieldNelia Subscriber ID:[id number] Payer ID:[id number] Group ID:Not on file Type:Medicare Address: [employer] [facility].[address] [address] [facility] MEDICARE SUPPLEMENT MEDICARE PART A & B MEDICARE SUPPLEMENT MEDICARE PART A & B MEDICARE SUPPLEMENT MEDICARE PART A & B MEDICARE SUPPLEMENT MEDICARE PART A & B MEDICARE SUPPLEMENT MEDICARE PART A & B MEDICARE SUPPLEMENT MEDICARE PART A & B MEDICARE SUPPLEMENT MEDICARE PART A & B [facility] MEDICARE SUPPLEMENT Care Teams Continuity Person Relationship Specialty Start Date End Date Sharmin Cruz [address] [place] [address], [address] [place], [place] [id number] PCP - General Family Medicine 04/02/24 Additional Source Comments The information contained in this document represents components of the legal health record. It is not the complete legal health record.[facility]
== END 2025-08-12 11:23 | disposition home or self-care (01) ==
LOC: HO.HGI 10:38
PROVIDERS: PCP Internal Medicine; Visit Provider Nurse Practitioner Family
DX: K58.1 Irritable bowel syndrome with constipation (principal); R10.84 Generalized abdominal pain; K21.9 Gastro-esophageal reflux disease without esophagitis; R19.5 Other fecal abnormalities
CPT/HCPCS: 99213

== ENCOUNTER → 2025-08-12 10:38 | Outpatient (BNVA) | payer MEDICARE, OTHER, SELFPAY | PROVIDERS: PCP Internal Medicine; Visit Provider Nurse Practitioner Family | DX: K21.9 Gastro-esophageal reflux disease without esophagitis (principal); K58.1 Irritable bowel syndrome with constipation; R10.84 Generalized abdominal pain; R19.5 Other fecal abnormalities | CPT/HCPCS: 99212 ==